=== PATIENT | male | born 1960 | race African-American/Black ===

== ENCOUNTER 2021-02-15 14:28 | Emergency (ER) | payer OTHER, SELFPAY ==
[2021-02-15 14:44] VITALS: BP 159/100; PULSE 101; RESP 12; TEMP 35.9; O2SAT 99
--- NOTE | 2021-02-15 15:08 | ED.DENTAL ---
HPI - Dental/Oral General Chief complaint: Dental/Oral Stated complaint: jaw swelling History of Present Illness HPI Narrative: This is a 60-year-old male that comes in with severe tooth pain. Patient states that his dentist is not able to get him in states is been going on for couple days he has not been able to eat or drink except for soup patient states that his jaws started to swell up on the left side. Patient states that the Tylenol is no longer working Related Data Home Medications Medication Instructions Recorded Confirmed dgootyjq-yzv-arrth acid 300 1 tablet PO DAILY 11/01/20 02/14/21 mcg-lycopene 600 mcg-lutein 300 mcg tablet Allergies Allergy/AdvReac Type Severity Reaction Status Date / Time No Known Allergies Allergy Verified 02/13/21 10:19 Review of Systems Review of Systems: Narrative: CONSTITUTIONAL: Denies fever, chills, or sweats. EYES: Denies visual changes, redness, or discharge. ENT: Denies rhinorrhea, congestion, sore throat, or otalgia. Tooth pain CARDIOVASCULAR:Denies chest pain, palpitations, or edema. RESPIRATORY: Denies cough or dyspnea. GASTROINTESTINAL: Denies abdominal pain, nausea, vomiting, or diarrhea. GENITOURINARY: Denies dysuria or hematuria. SKIN:[Denies rash or itching. MUSCULOSKELETAL:Denies back pain, joint pain, or myalgia. NEUROLOGIC: Denies headache, numbness, or weakness. PSYCHIATRIC:Denies anxiety or depression [facility] Past Medical History Medical History Bilateral chronic knee pain Dyslipidemia History of prostate cancer Recurrent genital herpes Surgical History Surgical History History of knee surgery History of prostatectomy 08/2012 History of tonsillectomy Family History Family History Mother Family history of Alzheimer's disease Father Family history of lung cancer Sibling Diabetes mellitus Social History Social History Years smoked: 18 Smoking status: Former smoker Second hand tobacco smoke exposure: No Smoking end date: 09/07/96 Alcohol intake: current Drinks per week: 4 Substance use type: does not use 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 Please see nursing chart for further information. There is no relevant family history pertinent to the presenting complaint. Exam Narrative: Exam Narrative: GENERAL:Well-appearing, well-nourished, and in no acute distress. HEAD:Normocephalic, atraumatic. EYES: PERRLA and EOMI. ENT: Nares clear, no rhinorrhea or epistaxis. Mucous membranes moist. Left jaw swollen painful to palpitation left lower gumline swollen many of dental caries NECK: Supple. CHEST: Clear to auscultation. No respiratory distress. HEART: Regular tachycardia rate and rhythm. . Normal peripheral pulses. ABDOMEN: Soft, nontender, nondistended, normal active bowel sounds. EXTREMITIES: Normal range of motion. No edema. SKIN: Warm, dry, no rash. NEURO: No focal deficits. Alert and oriented x3. Explained blood pressure the patient informed him of his high patient is aware states that is due to his pain level Course Vital Signs Vital signs: Vital Signs Temperature 96.7 F L 02/15/21 14:44 Pulse Rate 101 H 02/15/21 14:44 Respiratory Rate 12 02/15/21 14:44 Blood Pressure 159/100 H 02/15/21 14:44 Pulse Oximetry 99 02/15/21 14:44 Temperature 96.7 F L 02/15/21 14:44 Pulse Rate 101 H 02/15/21 14:44 Respiratory Rate 12 02/15/21 14:44 Blood Pressure 159/100 H 02/15/21 14:44 Pulse Oximetry 99 02/15/21 14:44 MDM - Dental/Oral Differential Diagnosis Differential diagnosis: Likely gingival abscess, dental car
== END 2021-02-15 15:18 | disposition home or self-care (01) ==
PROVIDERS: Emergency Provider Nurse Practitioner Family; PCP Family Medicine
DX: K08.89 Other specified disorders of teeth and supporting structures (principal); K02.9 Dental caries, unspecified; K04.7 Periapical abscess without sinus; E78.5 Hyperlipidemia, unspecified; Z85.46 Personal history of malignant neoplasm of prostate; Z90.79 Acquired absence of other genital organ(s); Z87.891 Personal history of nicotine dependence
CPT/HCPCS: 99213; G0463

== ENCOUNTER 2021-02-21 10:24 | Outpatient (CLI) | payer OTHER, SELFPAY ==
--- NOTE | ~2021-02-21 | US_ITS ---
EXAMINATION: US soft tissue chest DATE: 02/21/2021 11:00 INDICATION: Localized swelling, mass and lump at the superior anterior right trunk. TECHNIQUE: Multiple grayscale and Doppler ultrasound images of the region of concern at the medial ri ght clavicular region were obtained. COMPARISON: None FINDINGS: The palpable abnormality of concern appears to correspond to the right clavicle which is elevated rel ative to the left clavicle. There is asymmetric widening of the right sternoclavicular joint relative to the left with approximately 9 mm anterior subluxation of the medial head of the right clavicle re lative to the sternum. Hypoechoic synovitis is seen within the right sternoclavicular joint. No abnor mal masses identified. IMPRESSION: 1. Palpable abnormality of concern appears to correspond to the right clavicle which is elevated rela tive to the left with widening and step-off at the right acromion clavicular joint which could be rel ated to prior trauma or nonspecific arthritis. If clinically indicated this can be further evaluated with either CT or pre and postcontrast MRI. Reviewed, dictated and finalized at location A. IMPRESSION: 1. Palpable abnormality of concern appears to correspond to the right clavicle which is elevated relative to the left with widening and step-off at the right acromion clavicular joint which could be related to prior trauma or nonspecific arthritis. If clinically indicated this can be further evaluated with either C T or pre and postcontrast MRI.
== END 2021-02-21 10:25 | disposition home or self-care (01) ==
PROVIDERS: PCP Family Medicine; Visit Provider Surgery
DX: R22.2 Localized swelling, mass and lump, trunk (principal)
CPT/HCPCS: 76604

== ENCOUNTER 2021-12-18 08:07 | Outpatient (CLI) | payer OTHER, SELFPAY ==
--- NOTE | ~2021-12-18 | NM_ITS ---
EXAMINATION: NM bone scan whole body DATE: 12/18/2021 15:07 INDICATION: Prostate cancer. TECHNIQUE: 27.2 mCi Tc-99m HDP was administered intravenously. Delayed whole-body scintigrams were o btained. COMPARISON: CT abdomen and pelvis 06/18/2012, bone scan 06/18/2012 FINDINGS: There is joint-centered increased activity in the acromioclavicular joints, sternoclavicula r joints, spine, left hip, knees, and left ankle, likely osteoarthritis. IMPRESSION: 1. No evidence of metastatic disease. Reviewed, dictated and finalized at location A.
== END 2021-12-18 08:08 | disposition home or self-care (01) ==
PROVIDERS: PCP Family Medicine; Visit Provider Urology
DX: C61 Malignant neoplasm of prostate (principal)
CPT/HCPCS: 78306; A9561

== ENCOUNTER 2022-01-22 01:33 | Day surgery (SDC) | payer OTHER, SELFPAY ==
[2022-01-09 12:35] VITALS: BMI 37.6
--- NOTE | 2022-01-21 17:40 | PM.HPGS ---
History of Present Illness History of Present Illness Consent: Risks, benefits, and alternatives have been discussed and questions answered. Patient agrees to proceed with procedure. Chief complaint: neoplasm screening Narrative: Dave Ireland is a 61 year old male was referred for colon cancer screening. His last colonoscopy was 10 years ago. Review of Systems Review of Systems: All systems reviewed & are unremarkable except as noted in HPI and below PMFSH Past Medical History Medical History Bilateral chronic knee pain Dyslipidemia History of prostate cancer Recurrent genital herpes Seasonal allergies Surgical History Surgical History History of lateral meniscus repair of left knee (~2007) History of prostatectomy 08/2012 History of tonsillectomy (~2009) Family History Family History Mother Family history of Alzheimer's disease Father Family history of lung cancer Sibling Diabetes mellitus Social History Social History Years smoked: 18 Smoking status: Former smoker Tobacco type: cigarettes Second hand tobacco smoke exposure: No Alcohol intake: current Drinks per week: 5 Substance use type: does not use Living arrangements: other Additional living arrangements comments: With Additional occupation/education comments: [employer] Spiritual care concerns: No Meds Home Medications and Allergies Home Medications Medication Instructions Recorded Confirmed Type bcvqvolw-cft-bovjm acid 300 1 tablet PO DAILY 11/01/20 01/09/22 History mcg-lycopene 600 mcg-lutein 300 mcg tablet ibuprofen 600 mg PO QID PRN #30 tablet 02/15/21 01/09/22 Rx acyclovir 800 mg tablet 800 mg PO DAILY #90 tablet 10/11/21 01/09/22 Rx atorvastatin 10 mg tablet 10 mg PO QHS #90 tablet 12/30/21 01/09/22 Rx cholecalciferol (vitamin D3) 1,250 1,250 mcg PO WEEKLY #12 tablet 12/30/21 01/09/22 Rx mcg (50,000 unit) tablet Allergies Allergy/AdvReac Type Severity Reaction Status Date / Time No Known Allergies Allergy Verified 01/22/22 09:44 Exam Const: General: alert Orientation/consciousness: patient oriented x3 Resp: Auscultation: clear to auscultation bilaterally Cardio: Rhythm: regular rhythm GI: GI Palp: Yes Soft to palpation and No Tenderness to palpation present (GI) Neuro: General: patient oriented x3 Assessment and Plan Assessment and plan (1) Colon cancer screening: Code(s): Z12.11 - Encounter for screening for malignant neoplasm of colon Status: Acute Assessment and Plan: Colonoscopy with possible biopsy or polypectomy or cautery or injection of substances.
[2022-01-22 09:45] VITALS: BP 159/98; PULSE 88; RESP 20; TEMP 35.9; O2SAT 98; BMI 38.2
[2022-01-22] MEDS: LACTATED RINGERS 1,000 ML 150 ML IV CONT (09:53)
--- NOTE | 2022-01-22 10:34 | WPDANESEPPF ---
Anes - Initial Pre Proc Eval Procedure: Operation Date: 01/22/22 11:00 Proposed Procedures p Screening Colonoscopy - Sincere Casas MD Date/Time: 01/22/22 10:34 Surgeon: Sincere Casas MD Pre Op Diagnosis: neoplasm screening Patient Data Age: 61 Gender: M Height: 1.78 m Weight: 121.1 kg Last Vital Signs Temp 96.7 F L 01/22/22 09:45 Pulse 88 01/22/22 09:45 Resp 20 01/22/22 09:45 BP 159/98 H 01/22/22 09:45 Pulse Ox 98 01/22/22 09:45 Allergies Allergy/AdvReac Type Severity Reaction Status Date / Time No Known Allergies Allergy Verified 01/22/22 09:44 Home Medications Medication Instructions Recorded Confirmed Type nrmloywc-njw-snhvt acid 300 1 tablet PO DAILY 11/01/20 01/09/22 History mcg-lycopene 600 mcg-lutein 300 mcg tablet ibuprofen 600 mg PO QID PRN #30 tablet 02/15/21 01/09/22 Rx acyclovir 800 mg tablet 800 mg PO DAILY #90 tablet 10/11/21 01/09/22 Rx atorvastatin 10 mg tablet 10 mg PO QHS #90 tablet 12/30/21 01/09/22 Rx cholecalciferol (vitamin D3) 1,250 1,250 mcg PO WEEKLY #12 tablet 12/30/21 01/09/22 Rx mcg (50,000 unit) tablet Patient hx anesthesia problems: none Family hx anesthesia problems: none Results Review: All pre-operative results and documents have been reviewed as part of the pre-operative evaluation. [facility] Past Medical History Medical History Bilateral chronic knee pain Dyslipidemia History of prostate cancer Recurrent genital herpes Seasonal allergies Surgical History Surgical History History of lateral meniscus repair of left knee (~2007) History of prostatectomy 08/2012 History of tonsillectomy (~2009) Family History Family History Mother Family history of Alzheimer's disease Father Family history of lung cancer Sibling Diabetes mellitus Social History Social History Years smoked: 18 Smoking status: Former smoker Tobacco type: cigarettes Second hand tobacco smoke exposure: No Alcohol intake: current Drinks per week: 5 Substance use type: does not use Living arrangements: other Additional living arrangements comments: With 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 Informed Consent: The patient's anesthetic plan and its attendant risks and benefits were discussed with the patient/family/POA. Questions were solicited and answers provided to the satisfaction of the patient/family/POA.
[2022-01-22 11:23] VITALS: BP 118/84; PULSE 98; RESP 16; O2SAT 97
[2022-01-22 11:33] VITALS: BP 134/97; PULSE 75; RESP 18; O2SAT 100
--- NOTE | 2022-01-22 11:38 | SUR.PHASEII ---
MELINA Figueroa notified Dr. Cain of bundle branch block she noticed on the heart monitor. Dr. Cain to assess patient.
--- NOTE | 2022-01-22 11:41 | SUR.PHASEII ---
Dr. Cain discussed EKG with patient and gave the okay for the patient to be discharged. No further testing at this time.
[2022-01-22 11:43] VITALS: BP 133/97; PULSE 72; RESP 18; O2SAT 97
== END 2022-01-22 11:51 | disposition home health service (06) ==
PROVIDERS: PCP Family Medicine; Visit Provider Internal Medicine Gastroenterology
PROC: 0DJD8ZZ Inspection of Lower Intestinal Tract, Via Natural or Artificial Opening Endoscopic (ICD-10-PCS; CPT 45378; principal; 2022-01-22 11:00)
DX: Z12.11 Encounter for screening for malignant neoplasm of colon (principal); K57.30 Diverticulosis of large intestine without perforation or abscess without bleeding; D12.3 Benign neoplasm of transverse colon; E78.5 Hyperlipidemia, unspecified; B00.9 Herpesviral infection, unspecified; Z85.46 Personal history of malignant neoplasm of prostate; Z87.891 Personal history of nicotine dependence; E66.9 Obesity, unspecified; Z68.38 Body mass index [BMI] 38.0-38.9, adult
CPT/HCPCS: 45385; 88305; J2704; J7120

== ENCOUNTER 2022-03-06 08:00 | Outpatient (CLI) | payer OTHER, SELFPAY ==
--- NOTE | 2022-03-06 08:48 | ECG_ITS ---
Measurements Intervals [place] Rate: 57 P: 15 [place]: 206 QRS: 29 QRSD: 109 T: 9 QT: 433 QTc: 425 Interpretive Statements SINUS BRADYCARDIA INCOMPLETE RIGHT BUNDLE BRANCH BLOCK [90+ ms QRS DURATION, TERMINAL R IN V1/V2, 40+ ms S IN I/aVL/V4/V5/V6] NO PREVIOUS ECG AVAILABLE FOR COMPARISON Electronically Signed On 03-06-2022 18:00:07 CDT by Susy Rae M.D.
[2022-03-06 09:18] LABS: Basophils Absolute Auto 0.1 K/mm3 (0.0-0.1); Basophils Percent Auto 0.7 % (0.2-1.2); Eosinophils Absolute Auto 0.3 K/mm3 (0-0.3); Eosinophils Percent Auto 3.1 % (0-4.4); Hematocrit 43.3 % (42.0-52.0); Hemoglobin 14.2 g/dL (14.0-18.0); Immature Granulocyte Absolute 0.02 K/mm3 (0.00-0.031); Immature Granulocyte Percent A 0.2 % (0-0.5); Lymphocytes Absolute Auto 2.54 K/mm3 (0.9-3.2); Lymphocytes Percent Auto 28.1 % (18.3-44.2); Mean Corpuscular HGB Conc 32.8 g/dl (32-36); Mean Corpuscular Hemoglobin 29.5 pg (26-34); Mean Corpuscular Volume 89.8 fl (80-100); Mean Platelet Volume 9.4 fl (7.4-10.4); Monocytes Absolute Auto 0.8 K/mm3 (0.1-0.6); Monocytes Percent Auto 8.3 % (2.6-8.5); Neutrophils Absolute Auto 5.4 K/mm3 (1.3-6.7); Neutrophils Percent Auto 59.6 % (45.5-73.1); Platelet Count Result 342 k/mm3 (150-375); Red Blood Count 4.82 M/mm3 (4.6-6.20); White Blood Count 9.1 K/mm3 (4.5-10.0)
[2022-03-06 09:27] LABS: Albumin Level 4.1 g/dL (3.5-5.1); Anion Gap 7 mmol/L (8-16); Blood Urea Nitrogen 15 mg/dL (9-20); Calcium 8.7 mg/dL (8.4-10.2); Carbon Dioxide 26 mmol/L (22-30); Chloride 105 mmol/L (98-107); Estimated Glomerular Filt Rate > 60; Glucose 100 mg/dL (65-110); Potassium 3.9 mmol/L (3.4-5.0); Sodium 138 mmol/L (137-145)
[2022-03-06 10:51] LABS: Urine Cotinine NEGATIVE
[2022-03-06 11:48] LABS: Hemoglobin A1C 5.6 % (<5.7)
== END 2022-03-06 08:01 | disposition home or self-care (01) ==
LOC: ANHSURGERY 08:03
PROVIDERS: PCP Family Medicine; Visit Provider Orthopaedic Surgery
DX: G89.29 Other chronic pain (principal); M25.561 Pain in right knee; M25.562 Pain in left knee; Z01.818 Encounter for other preprocedural examination; I45.10 Unspecified right bundle-branch block; R00.1 Bradycardia, unspecified
CPT/HCPCS: 80048; 80307; 82040; 83036; 85025; 86850; 86900; 86901; 87070; 87147; 87181; 87186; 93005

== ENCOUNTER 2022-03-19 01:13 | Day surgery (SDC) | payer OTHER, SELFPAY ==
[2022-03-06 07:58] VITALS: BMI 38.5
--- NOTE | 2022-03-06 07:58 | PC.NURSE ---
Report to the Outpatient Waiting Room, entrance under the green pavilion located off [facility], at time _1000_ on date _03/19/22_. OR Time: _1200_. - You and your visitor will be asked a series of questions to screen for COVID 19 for your protection. - Only one visitor is allowed at this time. - The patient visitor is requested to leave or wait in car when not with patient. - A mask is required within the hospital. VISITING HOURS 10AM-8PM, USE MAIN HOSPITAL ENTRANCE (FRONT OF HOSPITAL) Patients may have clear liquids (water, carbonated beverages, clear teas, apple juice) until 3 hours prior to surgery (0900 AM) with a maximum of 20 ounces. - No food from midnight until time of surgery Take the following medications with a SIP of water the morning of surgery: _NONE_ Medications to discontinue per DR. KEM MALDONADO 7 DAYS PRIOR TO SURGERY, Date to take last dose 03/06/22_ Medications to discontinue per ANESTHESIA - MULTIVITAMIN 3 DAYS PRIOR TO SURGERY, Date to take last dose 03/15/22_ Please no deodorant, or body powder the day of surgery. No jewelry (including any body piercings) or valuables the day of surgery, leave them at home. Please take a shower or bath the night before, or the morning of, surgery with an antibacterial soap. Wear comfortable, loose fitting clothing. - Jewelry must be removed prior to entering the operating room. Rings and piercings that are not removed may be cut off. - The hospital will not accept responsibility for valuables. - Please leave all valuables, including medications, at home the day of surgery. If you are going home after surgery, a licensed full service vending driver must drive you home. - NO public transportation without another adult. - We recommend that an adult stay with you for 24 hours following discharge. - We also recommend that you do not drive, make important decision, drink alcoholic beverages, or take any drugs that were not prescribed by your health care provider for at least 24 hours after your discharge time. Follow any additional instructions given to you from your surgeon. If you or anyone in your household have experienced Covid symptoms in the past week, please notify your surgeon or the nurse liaison at the phone number below for possible testing. Instructions given to ___PT and asked if any additional questions and then verbalized understanding. Patient advised to call surgeon office or pre surgery nurse liaison [phone] if any additional questions.
[2022-03-06 08:19] VITALS: BP 134/84; PULSE 70; RESP 20; TEMP 36.4; O2SAT 99
--- NOTE | 2022-03-18 12:07 | WPDANESEPPF ---
Anes - Initial Pre Proc Eval Procedure: Operation Date: 03/19/22 12:00 Proposed Procedures p Right Total Knee Arthroplasty, Left Knee Cortisone Steroid Injection - Sawyer Guerrero MD Date/Time: 03/18/22 12:07 Surgeon: Sawyer Guerrero MD Pre Op Diagnosis: oa right knee Patient Data Age: 61 Gender: M Height: 1.78 m Weight: 121.8 kg Last Vital Signs Temp 36.4 C L 03/06/22 08:19 Pulse 70 03/06/22 08:19 Resp 20 03/06/22 08:19 BP 134/84 03/06/22 08:19 Pulse Ox 99 03/06/22 08:19 O2 Del Method Room Air 03/06/22 08:19 Allergies Allergy/AdvReac Type Severity Reaction Status Date / Time No Known Allergies Allergy Verified 03/19/22 10:31 Home Medications Medication Instructions Recorded Confirmed Type phbzlqej-bwd-tfjts acid 300 1 tablet PO QAM 11/01/20 03/19/22 History mcg-lycopene 600 mcg-lutein 300 mcg tablet (Centrum Silver Men) acyclovir 800 mg tablet 800 mg PO DAILY #90 tabs 10/11/21 03/19/22 Rx atorvastatin 10 mg tablet 10 mg PO QHS #90 tabs 12/30/21 03/19/22 Rx cholecalciferol (vitamin D3) 1,250 1,250 mcg PO WEEKLY #12 tabs 12/30/21 03/19/22 Rx mcg (50,000 unit) tablet naproxen sodium 220 mg tablet 440 mg PO DAILY PRN Pain 03/06/22 03/06/22 History (Socrates) Patient hx anesthesia problems: none Family hx anesthesia problems: none Results Review: All pre-operative results and documents have been reviewed as part of the pre-operative evaluation. [facility] Past Medical History Medical History Arthritis Bilateral chronic knee pain Dyslipidemia History of prostate cancer Hyperlipidemia Obesity Prostate CA Recurrent genital herpes Seasonal allergies Surgical History Surgical History History of lateral meniscus repair of left knee (~2007) History of prostatectomy 08/2012 History of tonsillectomy (~2009) Family History Family History Mother Family history of Alzheimer's disease Father Family history of lung cancer Sibling Diabetes mellitus Social History Social History Smoking packs per day: 0.75 Smoking cigarettes per day: 15.0 Years smoked: 18 Smoking pack-years: 13.50 Smoking status: Former smoker Tobacco type: cigarettes Second hand tobacco smoke exposure: No Smoking end date: 09/07/03 Additional smoking assessment comments: PT DENIES ALL FORMS OF TOBACCO USE Alcohol intake: current Drinks per week: 5 Substance use: never Substance use type: does not use Living arrangements: with family Additional living arrangements comments: With 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 Informed Consent: The patient's anesthetic plan and its attendant risks and benefits were discussed with the patient/family/POA. Questions were solicited and answers provided to the satisfaction of the patient/family/POA.
[2022-03-19] VITALS (13 sets, daily range): BP systolic 118–137; BP diastolic 62–94; PULSE 73–106; RESP 12–20; TEMP 36.4–36.9; O2SAT 94–100
--- NOTE | ~2022-03-19 | XR_ITS ---
EXAMINATION: XR knee RT 2V DATE: 03/19/2022 16:01 CDT INDICATION: Status post right knee arthroplasty TECHNIQUE: 2 views right knee FINDINGS: There is a right total knee arthroplasty in expected position. Subcutaneous gas with fluid and air in the joint are consistent with recent surgery. No evidence of periprosthetic fracture. IMPRESSION: 1. Recent right total knee arthroplasty. Reviewed, dictated and finalized at location A.
--- NOTE | 2022-03-19 09:34 | PM.IMHP ---
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 Patient has been having symptoms of pain in both of his knees for years. He has been treating this with cortisone injections as well as anti-inflammatory medications. Patient has severe medial compartment osteoarthritis in both knees. He feels that he is ready to proceed with total knee arthroplasty. Is having pain on a daily basis that is affecting his daily lifestyle. Review of Systems Review of Systems: All systems reviewed & are unremarkable except as noted in HPI and below PMFSH Past Medical History Medical History Arthritis Bilateral chronic knee pain Dyslipidemia History of prostate cancer Hyperlipidemia Obesity Prostate CA Recurrent genital herpes Seasonal allergies Surgical History Surgical History History of lateral meniscus repair of left knee (~2007) History of prostatectomy 08/2012 History of tonsillectomy (~2009) Family History Family History Mother Family history of Alzheimer's disease Father Family history of lung cancer Sibling Diabetes mellitus Social History Social History Smoking packs per day: 0.75 Smoking cigarettes per day: 15.0 Years smoked: 18 Smoking pack-years: 13.50 Smoking status: Former smoker Tobacco type: cigarettes Second hand tobacco smoke exposure: No Smoking end date: 09/07/03 Additional smoking assessment comments: PT DENIES ALL FORMS OF TOBACCO USE Alcohol intake: current Drinks per week: 5 Substance use: never Substance use type: does not use Living arrangements: with family Additional living arrangements comments: With 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 Spiritual care concerns: No Meds Home Medications and Allergies Home Medications Medication Instructions Recorded Confirmed Type zkcuyrwy-ggx-lwbns acid 300 1 tablet PO QAM 11/01/20 03/19/22 History mcg-lycopene 600 mcg-lutein 300 mcg tablet (Centrum Silver Men) acyclovir 800 mg tablet 800 mg PO DAILY #90 tabs 02/04/22 07/13/22 Rx atorvastatin 10 mg tablet 10 mg PO QHS #90 tabs 12/30/21 03/19/22 Rx cholecalciferol (vitamin D3) 1,250 1,250 mcg PO WEEKLY #12 tabs 12/30/21 03/19/22 Rx mcg (50,000 unit) tablet naproxen sodium 220 mg tablet 440 mg PO DAILY PRN Pain 03/06/22 03/06/22 History (Aleve) Allergies Allergy/AdvReac Type Severity Reaction Status Date / Time No Known Allergies Allergy Verified 03/19/22 10:31 Exam Narrative: 61-year-old male alert pleasant. He is 5 ft 10 and 265 lb. His BMI is 38. His right knee has range motion from 3-120 degrees. Trace effusion. Mild medial joint line tenderness. Normal stability. Hip range of motion is full without discomfort, negative Stinchfield maneuver. Normal quad strength. 2+ dorsalis pedis palpable. Skin is intact around the knee. There is no edema in lower extremity. Normal sensation to the lower extremity. Resp: Auscultation: clear to auscultation bilaterally Cardio: Rate: regular rate Rhythm: regular rhythm Assessment and Plan Assessment and plan (1) Arthritis: Code(s): M19.90 - Unspecified osteoarthritis, unspecified site Status: Acute Plan 61-year-old male who has severe medial compartment osteoarthritis in both knees with the right being more painful the left this point. He feels he is ready to proceed with surgery on his right knee. We also gave a cortisone injection left knee at the time surgery as well. Surgical procedure as well as risks and complications were discussed in
[2022-03-19] MEDS: LACTATED RINGERS 1,000 ML 30 ML IV CONT ×3 (11:07→16:16)
[2022-03-19] MEDS: ACETAMINOPHEN 500 MG TABLET 1000 MG PO ×3 (11:09→23:12)
[2022-03-19] MEDS: TRANEXAMIC ACID 1,000MG/ISO100 1,000 MG/100 ML BAG 200 MG IVPB (11:30)
--- NOTE | 2022-03-19 11:57 | WPDHPUPDATE1 ---
History and Physical Update Update Date/Time: 03/19/22 11:57 History and Physical has been reviewed, including an updated exam of the patient. There are NO changes in the patient's condition. Risks, benefits, and alternatives have been discussed and questions answered. Patient agrees to proceed with procedure.
[2022-03-19] MEDS: ceFAZolin 2 GM/D5W 50 ML 2 GM/50 ML BAG IVPB ×2 (12:08→22:16)
[2022-03-19] MEDS: ceFAZolin SODIUM 1 GM VIAL 3 GM (12:52)
[2022-03-19] MEDS: GENTAMICIN BONE CEMENT REFOBACIN 1 EACH TOPICAL (12:57)
[2022-03-19] MEDS: ceFAZolin SODIUM 1 GM VIAL 2 GM IV PUSH (14:29)
[2022-03-19] MEDS: TRANEXAMIC ACID 1,000 MG/10 ML AMPUL 1000 MG IV PUSH (14:29)
--- NOTE | 2022-03-19 15:25 | W.PM.PROC2 ---
Procedure Note - Detailed Date of Procedure 03/19/22 Pre-op Diagnosis Osteo arthritis of both knees Post-op Diagnosis Same Procedure Performed Cortisone injection left knee, right total knee arthroplasty Surgeon Sawyer Guerrero MD Inside Sales Advisor Immanuel ayala Anesthesia General Description of Procedure Patient was brought to the operating room and general anesthesia was administered. The left knee was prepped with ChloraPrep and 80 mg of Depo-Medrol and 3 cc of 1% lidocaine were injected lateral parapatellar approach without difficulty. The patient's right knee was prepped draped usual fashion. He did have a positive bounce with a small flexion contracture. He received 3 g of Ancef because of his weight of 120 kg BMI of 38. Weight based vancomycin was given 1 g TXA. There was extra difficulty with the procedure due to his obesity with BMI of 38 which added approximately 45 minutes to the procedure. The right limb was exsanguinated and tourniquet elevated to 300 mmHg. An 8 in longitudinal midline incision was used and a standard parapatellar arthrotomy utilized. Infrapatellar and suprapatellar fat pads were excised a quadriceps synovectomy carried out. The patella had rimming osteophytes but intact articular cartilage which looked normal. The osteophytes were gently debrided and a minimal lateral facetectomy was performed. A guide karely was inserted down the femoral canal after aspiration of canal contents and using the 5 degree valgus cutting bushing 9 mm of bone were removed the distal femur. Because of his large size and the wear medially this removed about 7 medially and appeared removed about 9 laterally. Next the tibial plateau was cut making a skim cut skiving off the low point of the posteromedial aspect of the medial tibial plateau where there was quite a bit of wear. This removed 10 mm laterally. The cut was made perpendicular to the axis of the tibia. This Koul remnants were excised and the PCL recessed. Flexion gap measured 10 mm medially 12 mm laterally. There was pronounced eburnation of the distal and posterior medial femoral condyle. The sizing guide was applied set at 3? of external rotation which matched Whitesides line posterior referencing pinholes were placed. The femur was cut to a size 70 and AP and chamfer cuts were made. Flexion gaps were symmetric with the 10 CR insert. Extension gap showed the medial side was still quite a bit tighter than the lateral side. He did have a varus deformity and varus contracture preoperatively. The tibia was sized to a 79 vanguard and this was placed at proper rotation referenced off the 2nd metatarsal medial 1/3 tibial tubercle in the anterior tibial plateau. This fit line to line anteromedial to posterior lateral in the proper rotation this was punched the 79. We removed posteromedial osteophytes at this time. We did not specifically release any of the posteromedial capsule or medial collateral ligament. The 10 mm insert was placed and we trialed. This was a little bit loose in flexion both on the mediolateral side. The knee came out to what appeared to be full extension but had a positive bounce. The tourniquet was released at 85 minutes and with this done he had a negative bounce test. The 12 was placed in flexion of was too tight. Planning for a size 11 insert, an additional mm of bone was removed the distal femur at this time chamfer cuts revisited and posterior femoral osteophyte was removed. This was still fairly sizable on the medial side. We did not need to perform a posterior capsular release. We trialed then with the 11 insert which had optimal stability opening up mm medially and laterally at 90? with appropriate minimal anterior posterior drawer and complete tightening up and full flexion. The knee came out to full extension with a negative bounce except there was no play medially on valgus stress either in extension or at 5? of flexion. We had about 2-[address]
[2022-03-19] MEDS: fentaNYL CITRATE INJ (*CRX) 100 MCG/2 ML VIAL 25 MCG IV PUSH ×7 (15:49→16:58)
[2022-03-19] MEDS: HYDROmorphone HCL INJ (*CRX) 1 MG/ML SYR 0.5 MG IV PUSH ×4 (16:13→16:33)
--- NOTE | 2022-03-19 17:30 | PC.NURSE ---
This patient, Dave Ireland, was admitted to Medical Room 245-. Patient/family oriented to hospital policies and general routines including ID bracelet, bed and alarms, visiting hours, pain management, procedures, bathroom and other care routines, personal items, smoking policy, room service/diet, and visiting hours. Information on how to activate the Rapid Response Team has been discussed. Patient/Family are encouraged to report perceived risks to care and to ask questions if they do not understand what they are told or what they should do.
[2022-03-19] MEDS: oxyCODONE HCL (*CRX) 5 MG TAB IR PO ×2 (17:53→22:23)
[2022-03-19] MEDS: SODIUM CHLORIDE 0.9% IV 1,000 ML 125 ML IV CONT (17:53)
[2022-03-19] MEDS: ONDANSETRON INJ 4 MG/2 ML VIAL IV PUSH ×2 (17:59→21:56)
[2022-03-19] MEDS: SENNA/DOCUSATE SODIUM TABLET 2 TAB PO (18:31)
[2022-03-19] MEDS: ATORVASTATIN 10 MG TABLET PO (22:22)
[2022-03-20] MEDS: oxyCODONE HCL (*CRX) 5 MG TAB IR PO ×5 (01:39→14:01)
[2022-03-20 04:18] VITALS: BP 108/61; PULSE 105; RESP 17; TEMP 36.3; O2SAT 96
[2022-03-20] MEDS: ACETAMINOPHEN 500 MG TABLET 1000 MG PO ×2 (05:56→10:50)
[2022-03-20] MEDS: ceFAZolin 2 GM/D5W 50 ML 2 GM/50 ML BAG IVPB ×2 (05:57→13:59)
[2022-03-20 06:41] LABS: Basophils Percent Auto 0.1 % (0.2-1.2); Hematocrit 37.8 % (42.0-52.0); Immature Granulocyte Percent A 0.5 % (0-0.5); Lymphocytes Absolute Auto 1.05 K/mm3 (0.9-3.2); Mean Corpuscular HGB Conc 31.7 g/dl (32-36); Mean Corpuscular Hemoglobin 29.5 pg (26-34); Mean Corpuscular Volume 92.9 fl (80-100); Mean Platelet Volume 9.4 fl (7.4-10.4); Monocytes Absolute Auto 1.8 K/mm3 (0.1-0.6); Monocytes Percent Auto 8.4 % (2.6-8.5); Neutrophils Absolute Auto 18.1 K/mm3 (1.3-6.7); Platelet Count Result 259 k/mm3 (150-375); Red Blood Count 4.07 M/mm3 (4.6-6.20); Red Cell Distribution Width 14.3 % (11.5-14.5)
[2022-03-20 07:02] LABS: Anion Gap 7 mmol/L (8-16); Blood Urea Nitrogen 17 mg/dL (9-20); Calcium 8.2 mg/dL (8.4-10.2); Carbon Dioxide 24 mmol/L (22-30); Chloride 101 mmol/L (98-107); Estimated CRCL calculation 75 ml/min; Estimated Glomerular Filt Rate > 60; Glucose 129 mg/dL (65-110); Potassium 4.3 mmol/L (3.4-5.0); Sodium 132 mmol/L (137-145)
--- NOTE | 2022-03-20 07:11 | PM.PNORT ---
Subjective Subjective Date/Time Seen: 03/20/22 07:11 postop day 1 patient is alert. He is afebrile vital signs are stable. His dressing is dry. He is able to straight leg raise. Neurovascularly he is intact. He has been up to the restroom multiple times overnight. He did have a bout of nausea when he 1st got out of bed yesterday after surgery. No episodes of vomiting. That is quickly passed it is completely gone at this point. Pain is well controlled. We will plan to have patient work with physical therapy today. If he continues to do well plan on discharging him home this afternoon. Objective Data Vital Signs Vital Signs: Vital Signs - 24 hr 03/19/22 10:30 03/19/22 15:39 03/19/22 15:55 Temperature 36.6 C 36.9 C Pulse Rate 73 106 H 97 Respiratory Rate 16 18 17 Blood Pressure 134/91 H 137/86 128/94 H Pulse Oximetry 99 97 100 Oxygen Delivery Room Air Simple Face Mask Simple Face Mask Oxygen Flow Rate 8 8 03/19/22 16:10 03/19/22 16:25 03/19/22 16:40 Temperature 36.7 C Pulse Rate 78 88 87 Respiratory Rate 12 19 12 Blood Pressure 134/83 126/72 133/77 Pulse Oximetry 94 98 96 Oxygen Delivery Nasal Cannula Nasal Cannula Nasal Cannula Oxygen Flow Rate 3 2 2 03/19/22 16:55 03/19/22 17:05 03/19/22 17:30 Temperature 36.4 C Pulse Rate 97 92 77 Respiratory Rate 20 14 14 Blood Pressure 118/74 134/86 125/76 Pulse Oximetry 100 100 96 Oxygen Delivery Nasal Cannula Nasal Cannula Oxygen Flow Rate 2 2 03/19/22 17:45 03/19/22 18:17 03/19/22 19:40 Temperature 36.4 C 36.4 C 36.5 C Pulse Rate 94 95 99 Respiratory Rate 14 16 18 Blood Pressure 135/76 127/90 122/85 Pulse Oximetry 98 96 97 Oxygen Delivery Oxygen Flow Rate 03/19/22 23:28 03/20/22 04:18 Temperature 36.6 C 36.3 C L Pulse Rate 87 105 H Respiratory Rate 18 17 Blood Pressure 129/62 108/61 Pulse Oximetry 98 96 Oxygen Delivery Oxygen Flow Rate Intake/Output Intake/Output: Intake & Output 03/17/22 03/18/22 03/19/22 07/14/22 23:59 23:59 23:59 23:59 Intake Total 2210 550 Output Total 400 800 Balance 1810 -250 Meds/Results Medications: Active Medications Generic Name Dose Route Start Last Admin Trade Name Freq PRN Reason Stop Dose Admin Acetaminophen 1,000 mg 03/19/22 17:00 03/20/22 05:56 Acetaminophen 500 Mg Tablet PO 1,000 mg Q6H SRAVANTHI Administration Acyclovir 800 mg 03/20/22 09:00 Acyclovir 400 Mg Tablet PO 04/19/22 08:59 DAILY SRAVANTHI Apixaban 2.5 mg 03/20/22 09:00 Apixaban 2.5 Mg Tablet PO Q12HR SRAVANTHI Atorvastatin Calcium 10 mg 03/19/22 21:00 03/19/22 22:22 Atorvastatin 10 Mg Tablet PO 10 mg QHS SRAVANTHI Administration Celecoxib 200 mg 03/20/22 08:00 Celecoxib 200 Mg Capsule PO DAILY@0800 SRAVANTHI Cephalexin HCl 500 mg 03/20/22 18:00 Cephalexin 500 Mg Capsule PO Q6HR SRAVANTHI Ergocalciferol 50,000 unit 03/24/22 09:00 Ergocalciferol 50,000 Unit Capsule PO Mo@0900 SRAVANTHI Cefazolin Sodium 2 gm in 50 mls @ 100 mls/hr 03/19/22 22:00 03/20/22 06:27 Ancef 2 Gm/D5w 50 Ml IVPB 03/20/22 14:29 Infused Q8H SRAVANTHI Infusion Vancomycin HCl 1,000 mg in 250 mls @ 250 mls/hr 03/19/22 22:00 03/19/22 23:23 Vancomycin 1,000 Mg/D5w 250 Ml IVPB 03/20/22 10:59 Infused Q12H SRAVANTHI Infusion Morphine Sulfate 2 mg 03/19/22 15:38 Morphine Sulfate (*Crx) 2 Mg/Ml Inj IV PUSH Q1H PRN Pain Rated 7-10 Naloxone HCl 0.1 mg 03/19/22 15:38 Naloxone Hcl 0.4 Mg/Ml Vial IV PUSH Q2M PRN Opiate Reversal Ondansetron HCl 4 mg 03/18/22 09:22 03/19/22 21:56 Ondansetron Inj 4 Mg/2 Ml Vial IV PUSH 4 mg ONCE PRN Administration Nausea Oxycodone HCl 5 mg 03/19/22 18:00 03/20/22 05:57 Oxycodone Hcl (*Crx) 5 Mg Tab Ir PO 5 mg Q4H SRAVANTHI Administration Oxycodone HCl 5 mg 03/19/22 15:38 Oxycodone Hcl (*Crx) 5 Mg Tab Ir PO Q4H PRN Pain Rated 4-10 Polyethylene Glycol 17 gm 03/20/22 09:00 Polyethylene
--- NOTE | 2022-03-20 07:15 | PM.DS ---
DS: Admitting Diagnosis Discharge Date 03/20 Admitting Diagnosis Right knee DJD DS: Discharge Diagnosis Discharge Diagnosis Plan 61-year-old male who underwent right total knee arthroplasty on 03/19 underwent procedure without complications. Postoperatively he has been afebrile vital signs are stable. Neurovascular is intact. He is on Eliquis for DVT prophylaxis. He was up to date of surgery walking in the room and to the restroom. He is comfortable. His pain overall is well controlled with scheduled Tylenol as well as oxycodone 5 mg. He is also on Celebrex 200 mg once a day. He is weight-bearing as tolerated. He is work with physical therapy on postop day 1 and if he continues do well to be discharged to home on 03/20. Patient was advised to keep leg elevated at home with his foot higher than his heart to prevent swelling in the knee. He is to do his exercises on an hourly basis at home for bending and straightening of the knee. His outpatient therapy starting next Thursday. He is also going home on a course of Keflex. Increased BMI. He will go home on Senokot and MiraLax for constipation. Patient was advise any questions or concerns he is to call the office otherwise we will see him at his appointment date. DS: Summary Hospital Course Hospital Course: Stable Time Spent with Patient Time attestation: Total time spent providing and/or coordinating discharge services: DS: Data Data Completed and Pending Labs on day of discharge: Labs from last 24 hours 03/20/22 03/20/22 05:44 05:44 WBC Pending RBC Pending Hgb Pending Hct Pending MCV Pending MCH Pending MCHC Pending RDW Pending Plt Count Pending MPV Pending Immature Gran % (Auto) Pending Neut % (Auto) Pending Lymph % (Auto) Pending [place] % (Auto) Pending Eos % (Auto) Pending Baso % (Auto) Pending Lymph # (Auto) Pending [place] # (Auto) Pending Eos # (Auto) Pending Baso # (Auto) Pending Abs Immat Gran (auto) Pending Absolute Neuts (auto) Pending Absolute Nucleated RBC Pending Nucleated RBC % Pending Sodium 132 L Potassium 4.3 Chloride 101 Carbon Dioxide 24 Anion Gap 7 L BUN 17 Creatinine 1.20 Estim Creat Clear Calc 75 Estimated GFR > 60 Glucose 129 H Calcium 8.2 L Discharge Plan Discharge Patient Disposition: Home, Self-Care Discharge Instructions: SAWYER GUERRERO M.D [facility], [place] [id number] [place] [address] POST-OPERATIVE DISCHARGE INSTRUCTIONS TOTAL KNEE ARTHROPLASTY 1. When resting, lie on back with leg elevated above heart to minimize swelling. Significant swelling could indicate a blood clot and if this occurs call the office (or go to the ER) to have a venous ultrasound. 2. Do exercise 5 times a day. 3. Do not sit with leg down except for meals. 4. Wound Care: Nursing will give additional dressings at discharge. Patient to change dressing at home 1 week from surgery, then maintain until seen in office. 5. May shower with dressing in place. . Stand Alone Forms: General Discharge Instructions Follow-up/Referrals: Sawyer Guerrero MD [Physician] - Keep Reg. Scheduled Appt. Discharge Medications: New acetaminophen 500 mg Tablet 1,000 mg PO Q6H Qty: 90 0RF Eliquis 2.5 mg Tablet 2.5 mg PO Q12HR Qty: 27 0RF celecoxib [Celebrex] 200 mg Capsule 200 mg PO DAILY@0800 Qty: 60 0RF polyethylene glycol 3350 [Miralax] 17 gram Powder In Packet 17 g PO QAM Qty: 30 0RF sennosides-docusate sodium [Senokot-S] 8.6-50 mg Tablet 2 tab PO BID Qty: 60 0RF cephalexin 500 mg Capsule 500 mg PO Q6HR Qty: 48 0RF oxycodone 5 mg Tablet 5 mg PO Q4H Qty: 40 0RF Continued Centrum Silver Men 300-600-300 mcg tablet 1 tablet PO QAM acyclovir 800 mg tablet 800 mg PO DAILY Qty: 90 1RF atorvastatin 10 mg tablet 10 mg PO QHS Qty: 90 1RF Label Co
[2022-03-20] MEDS: ACYCLOVIR 400 MG TABLET 800 MG PO (08:11)
[2022-03-20] MEDS: SENNA/DOCUSATE SODIUM TABLET 2 TAB PO (08:12)
[2022-03-20] MEDS: APIXABAN 2.5 MG TABLET PO (08:12)
[2022-03-20] MEDS: CELECOXIB 200 MG CAPSULE PO (08:13)
[2022-03-20 10:00] VITALS: BP 108/68; PULSE 95; RESP 16; TEMP 36.6; O2SAT 98
[2022-03-20 14:00] VITALS: BP 116/75; PULSE 98; RESP 16; TEMP 36.3; O2SAT 99
--- NOTE | 2022-03-20 14:19 | WPDANESPN ---
Anes - Prog Note Post-Op Date/Time: 03/20/22 14:19 Cardiovascular status: normal Respiratory status: normal Airway patency: baseline Mental status: baseline Post-Op hydration status: normal Vital Signs: Last Vital Signs Temp 36.6 C 03/20/22 10:00 Pulse 95 03/20/22 10:00 Resp 16 03/20/22 10:00 BP 108/68 03/20/22 10:00 Pulse Ox 98 03/20/22 10:00 O2 Del Method Room Air 03/20/22 08:16 O2 Flow Rate 2 03/19/22 17:05 Pain Score (VAS): 10/17 I/O: Intake & Output 03/19/22 03/20/22 03/20/22 23:59 07:59 15:59 Intake Total 1560 550 480 Output Total 400 800 Balance 1160 -250 480 Laboratory Tests 03/20/22 05:44 03/20/22 05:44 03/20/22 03/20/22 05:44 05:44 WBC 21.0 H RBC 4.07 L Hgb 12.0 L Hct 37.8 L MCV 92.9 MCH 29.5 MCHC 31.7 L RDW 14.3 Plt Count 259 MPV 9.4 Immature Gran % (Auto) 0.5 Neut % (Auto) 86.0 H Lymph % (Auto) 5.0 L [place] % (Auto) 8.4 Eos % (Auto) 0.0 Baso % (Auto) 0.1 L Lymph # (Auto) 1.05 [place] # (Auto) 1.8 H Eos # (Auto) 0.0 Baso # (Auto) 0.0 Abs Immat Gran (auto) 0.10 H Absolute Neuts (auto) 18.1 H Absolute Nucleated RBC 0.0 Nucleated RBC % 0.0 Sodium 132 L Potassium 4.3 Chloride 101 Carbon Dioxide 24 Anion Gap 7 L BUN 17 Creatinine 1.20 Estim Creat Clear Calc 75 Estimated GFR > 60 Glucose 129 H Calcium 8.2 L Post-procedural complaints: none Patient Feedback: Patient satisfied with anesthetic care.
== END 2022-03-20 16:27 | disposition home or self-care (01) ==
LOC: ANHSURGERY 10:11 → ANH2MED 17:23
PROVIDERS: PCP Family Medicine; Visit Provider Orthopaedic Surgery
PROC: (CPT 27447; principal; 2022-03-19 12:00)
DX: M17.0 Bilateral primary osteoarthritis of knee (principal); E78.5 Hyperlipidemia, unspecified; Z85.46 Personal history of malignant neoplasm of prostate; E66.9 Obesity, unspecified; Z68.37 Body mass index [BMI] 37.0-37.9, adult; Z90.79 Acquired absence of other genital organ(s); Z87.891 Personal history of nicotine dependence
CPT/HCPCS: 27447; 36415; 73560; 80048; 80307; 82040; 83036; 85025; 86850; 86900; 86901; 87070; 87147; 87181; 87186; 93005; 97110; 97116; 97161; 97165; A9270; C1713; C1776; J0171; J0690; J1040; J1100; J1170; J1885; J2250; J2270; J2405; J2704; J2795; J3010; J3370; J7030; J7120

== ENCOUNTER 2022-06-13 07:56 | Outpatient (CLI) | payer OTHER, SELFPAY ==
--- NOTE | ~2022-06-13 | CT_ITS ---
EXAMINATION: CT abdomen pelvis w con DATE: 06/13/2022 08:22 INDICATION: Prostate cancer. TECHNIQUE: Computed tomography (CT) of the abdomen and pelvis was performed with 100 mL Omnipaque 350 intravenous contrast. Automated exposure control and iterative reconstruction technique were employe d. The dose-length product was 1436.22 mGy-cm. COMPARISON: CT abdomen and pelvis 06/18/2012, bone scan 12/18/2021 FINDINGS: The visualized portions of the lung bases demonstrate mild atelectasis. No pleural effusion . The heart size is normal. No pericardial effusion. There is a 4 mm cyst in the liver. The spleen, p ancreas, gallbladder, and adrenal glands are normal. There are cysts in the kidneys measuring up to 1 6 mm on the left. There is an umbilical hernia containing fat. There is a left inguinal hernia contai aramis fat. There is diverticulosis of the colon without evidence of diverticulitis. There are no dilat ed loops of bowel. The appendix is normal. There is no free intraperitoneal fluid. There is an 18 x 2 7 mm right external iliac lymph node. There is an 11 x 19 mm left external iliac lymph node. There is a chronic 1.9 cm nonaggressive lytic lesion with sclerotic margin in right iliac wing, likely benign . There is severe lumbar spondylosis. IMPRESSION: 1. Enlarged bilateral external iliac lymph nodes suspicious for metastatic disease. Reviewed, dictated and finalized at location D. IMPRESSION: 1. Enlarged bilateral external iliac lymph nodes suspicious for metastatic dise ase.
[2022-06-13 08:16] LABS: Estimated Glomerular Filt Rate > 60
== END 2022-06-13 07:57 | disposition home or self-care (01) ==
PROVIDERS: PCP Family Medicine; Visit Provider Urology
DX: C61 Malignant neoplasm of prostate (principal); R59.0 Localized enlarged lymph nodes; K76.89 Other specified diseases of liver; K40.90 Unilateral inguinal hernia, without obstruction or gangrene, not specified as recurrent; K57.30 Diverticulosis of large intestine without perforation or abscess without bleeding
CPT/HCPCS: 74177; Q9967

== ENCOUNTER 2022-08-06 13:24 | Outpatient (CLI) | payer OTHER, SELFPAY ==
--- NOTE | ~2022-08-06 | PE_ITS ---
EXAMINATION: PET_PETPSMAST_PT DATE: 08/06/2022 16:15 INDICATION: Prostate cancer TECHNIQUE: 8.753 mCi of pipflufolastat F-18 (18-F-DCFPyL) was administered i.v. Low dose computed annabella ography (CT) images were acquired from the base of the brain to the proximal thighs for attenuation c orrection and anatomic localization. Positron emission tomography (PET) images were acquired in the s tobi distribution beginning 92 minutes after injection. COMPARISON: None FINDINGS: Head/neck: There is a typical pattern of symmetric physiologic increased activity in the parotid and submandibular glands and in the mucosa of the oropharynx and nasopharynx. No pathologically enlarged cervical lymphadenopathy or suspicious foci of increased uptake are identified. Chest: No abnormal PSMA uptake is identified. There is mild atelectasis. The lungs are free of focal airspace opacities. No pleural effusion or pneumothorax. The heart size is normal. There is 12 mm pre vascular lymph node in the upper mediastinum without associated PSMA PET uptake. Abdomen/pelvis/proximal thighs: There is physiologic PSMA uptake in the kidneys, liver, spleen and adriana wel. Previously described left external iliac chain lymphadenopathy is slightly improved and without abnormal PSMA uptake. There is a 3.3 x 1.5 cm right external iliac chain lymph node with abnormal PSM A uptake. There are subcentimeter bilateral inguinal lymph nodes with low level PSMA uptake . The lacey er, spleen, pancreas, gallbladder, and adrenal glands are normal. There are cysts of the kidneys. The re is no free intraperitoneal gas or evidence of bowel obstruction. Musculoskeletal: No abnormal PSMA uptake is identified. The chronic, nonaggressive lytic lesion with sclerotic margin in the right iliac wing does not demonstrate PSMA uptake, consistent with a benign f inding. IMPRESSION: 1. Right external iliac chain lymphadenopathy, consistent with metastatic disease. 2. Minimal uptake in nonpathologically enlarged bilateral inguinal lymph nodes could also reflect met astatic disease. Reviewed, dictated and finalized at location A. HYSICAL [employer]Y CHIEF IMPRESSION: 1. Right external iliac chain lymphadenopathy, consistent with metastatic disea se. 2. Minimal uptake in nonpathologically enlarged bilateral inguinal lymph nodes could also reflect metastatic disease.
== END 2022-08-06 13:25 | disposition home or self-care (01) ==
LOC: ANHIMG 13:27
PROVIDERS: PCP Family Medicine; Visit Provider Urology
DX: C61 Malignant neoplasm of prostate (principal)
CPT/HCPCS: 78815; A9595

== ENCOUNTER 2022-09-23 08:45 | Outpatient (CLI) | payer OTHER, SELFPAY ==
--- NOTE | ~2022-09-23 | MR_ITS ---
EXAMINATION: MR pelvis wo/w con DATE: 09/23/2022 10:09 INDICATION: Gastric cancer TECHNIQUE: Magnetic resonance imaging (MRI) of the pelvis was performed without and with 20 mL Multih ance intravenous contrast. Fullfield sequences of the pelvis included axial and coronal T2-weighted S S FSE, axial, sagittal and coronal 2D FIESTA, axial 2D FIESTA FS, axial SSFSE-IR CHAPARRO, axial dual-echo T1-weighted FSPGR, axial and coronal T1 weighted LAVA, 3D axial T2 Cube, axial diffusion-weighted SE with apparent diffusion coefficient (ADC) maps. Postcontrast sequences included a time course axial T1-weighted LAVA and sagittal and coronal T1-weighted LAVA. COMPARISON: PSMA PET/CT dated 08/06/[address] abdomen and pelvis dated 06/23/2022 FINDINGS: Mild diverticulosis along the sigmoid colon without adjacent inflammatory stranding to suggest divert iculitis. Normal appendix. Postoperative change of prior resection of the prostate and seminal vesicl es. There is mild truncation of the bladder wall which may relate to prior chronic outlet obstruction . The bladder extends caudally to the prostatectomy defect and there is linear scarring in the region of the seminal vesicles. No evident nodular soft tissue deposits to suggest local recurrence. Small fat-containing left inguinal hernia. Again seen is an enlarged right external and previously PSMA ewa d lymph node which currently measures 3.6 x 1.1 x 1.7 cm without significant interval change since ea rlier CT dated 06/13/2020 at which time the corresponding measurements were 3.5 x 1.2 x 1.8 cm. No int erval change in a few normal-sized bilateral inguinal lymph nodes. No other pathologically enlarged p elvic lymphadenopathy. Mild lower lumbar spondylosis with fibrofatty degenerative endplate changes at L4-L5. No evident pathologic marrow replacing process or abnormally enhancing bone lesions.. IMPRESSION: 1. Status post prostatectomy with no evident local recurrence. 2. Unchanged asymmetric mildly enlarged right external chain lymph node currently measuring 3.6 x 1.1 x 1.7 cm which remains suspicious for metastatic disease. Reviewed, dictated and finalized at location A. [employer] IMPRESSION: 1. Status post prostatectomy with no evident local recurrence. 2. Unchanged asymmetric mildly enlarged right external chain lymph node current ly measuring 3.6 x 1.1 x 1.7 cm which remains suspicious for metastatic disease .
== END 2022-09-23 08:46 | disposition home or self-care (01) ==
LOC: ANHIMG 08:50
PROVIDERS: PCP Family Medicine; Visit Provider Radiology Radiation Oncology
DX: C61 Malignant neoplasm of prostate (principal); R59.0 Localized enlarged lymph nodes
CPT/HCPCS: 72197; A9577

== ENCOUNTER 2023-03-02 10:30 | Emergency (ER) | payer OTHER, SELFPAY ==
--- NOTE | ~2023-03-02 | XR_ITS ---
Clinical Indication: Shortness of breath PA and lateral views of the chest: Comparison: 08/17/2012 Findings: Hazy left lower lobe airspace disease consistent with left upper lobe pneumonia. Right lung clear. Cardiomediastinal silhouette is within normal limits. Bones and soft tissues are unremarkabl e. Impression: Left upper lobe pneumonia. Reviewed, dictated and finalized at location . Impression: Left upper lobe pneumonia.
[2023-03-02 10:35] VITALS: BP 132/86; PULSE 93; RESP 22; TEMP 36.4; O2SAT 96
[2023-03-02] MEDS: IPRATROPIUM BR 0.02% INH SOLN 0.5 MG/2.5 ML VIAL INHALATION (10:45)
[2023-03-02] MEDS: ALBUTEROL SULFATE NEB 2.5 MG/3 ML INH INHALATION (10:45)
--- NOTE | 2023-03-02 10:45 | ED.SOB ---
HPI - SOB/Dyspnea General Chief Complaint: Shortness of Breath/Dyspnea Stated Complaint: wheezing/congestion Source: patient and RN notes reviewed History of Present Illness HPI Narrative: 62 yo M presents to urgent care with complaints of congestion, cough, and chest heaviness. Pt states he has been battling this for the last few months intermittently. Pt states he has seen his PCP twice for this and was initially put on a z-pack and steroids with minimal relief. Pt states he was then placed on another dose of steroids and inhalers at the end of December with minimal relief. Pt states it is back now worse. pt reports shortness of breath and wheezing. Pt denies any chest pain, fevers, chills, sore throat, ear pain, vomiting, or diarrhea. Related Data Allergies Allergy/AdvReac Type Severity Reaction Status Date / Time No Known Allergies Allergy Verified 03/02/23 11:33 Review of Systems Review of Systems: Pertinent positives and pertinent negatives per HPI. [facility] Past Medical History Medical History (Updated 03/02/23 @ 11:46 by Babita Villegas APRN) Arthritis Bilateral chronic knee pain Dyslipidemia History of prostate cancer Obesity Prostate CA Recurrent genital herpes Seasonal allergies Vitamin D deficiency Surgical History Surgical History (Updated 12/29/22 @ 14:18 by Beata Russell, DIRECTOR AMBULATORY) History of lateral meniscus repair of left knee (~2007) History of prostatectomy 08/2012 History of tonsillectomy (~2009) History of total right knee replacement (TKR) (~03/2022) Family History Family History Mother Family history of Alzheimer's disease Father Family history of lung cancer Sibling Diabetes mellitus Social History Social History (Updated 12/29/22 @ 13:56 by Gayle Pastor MA) Smoking packs per day: 0.75 Smoking cigarettes per day: 15.0 Years smoked: 18 Smoking pack-years: 13.50 Smoking status: Former smoker Second hand tobacco smoke exposure: No Additional smoking assessment comments: PT DENIES ALL FORMS OF TOBACCO USE Alcohol intake: current Drinks per week: 5 Substance use: never Substance use type: does not use Lack of Transportation: No Lack of Food: Never True Current Housing: I Have Housing Concerned About Future Housing: No Difficulty Paying Gas/Electric Bills: No Difficulty Paying for Meds: No Currently Unemployed: No Education: High School Diploma/GED Difficulty w/ Childcare or Family Care: No Living arrangements: with family Additional living arrangements comments: With Occupation/Education: 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 There is no relevant family history pertinent to the patient complaint. Exam Narrative: GENERAL: This is a well-nourished, well-developed patient, in no apparent distress. HEAD: normocephalic, atraumatic. EYES: Sclera clear/white. Vision is grossly intact. EARS: External ears normal, auditory canals clear and without drainage, TMs normal without perforation. Hearing grossly intact. NOSE: External nose normal with no obvious nasal discharge, nares without redness, no rhinorrhea. THROAT: Mucous membranes moist, posterior pharynx clear. NECK: Neck supple, non-tender without lymphadenopathy, masses or thyromegaly. CARDIOVASCULAR: Regular rate and rhythm without murmurs, gallops, or rubs. RESPIRATORY: wheezing and rhonchi throughout auscultation. SKIN: warm, intact with no suspicious lesions or rash, good texture and turgor. NEURO: awake, alert, and oriented to person, place and time. There were no obvious focal neurologic abnormalities. Course Course Level of Care: [facility] Care Visit V
[2023-03-02] MEDS: predniSONE 20 MG TABLET 60 MG PO (11:19)
[2023-03-02 11:40] VITALS: PULSE 98; RESP 20; O2SAT 96
== END 2023-03-02 11:51 | disposition home or self-care (01) ==
PROVIDERS: Emergency Provider Nurse Practitioner Family; PCP Family Medicine
DX: J18.1 Lobar pneumonia, unspecified organism (principal); Z87.891 Personal history of nicotine dependence; M19.90 Unspecified osteoarthritis, unspecified site; E78.5 Hyperlipidemia, unspecified; E55.9 Vitamin D deficiency, unspecified; Z85.46 Personal history of malignant neoplasm of prostate; Z96.651 Presence of right artificial knee joint; Z90.79 Acquired absence of other genital organ(s)
CPT/HCPCS: 71046; 94640; 99213; G0463; J7512

== ENCOUNTER → 2023-03-09 11:17 | Outpatient (CLI) | payer OTHER, SELFPAY ==
--- NOTE | ~2023-03-09 | XR_ITS ---
Clinical Indication: Pneumonia PA and lateral views of the chest: Comparison: 03/02/2023 Findings: The lungs are clear, without evidence of focal consolidation or pleural effusion. Cardiome diastinal silhouette is within normal limits. Bones and soft tissues are unremarkable. Impression: Normal chest. Reviewed, dictated and finalized at location . Impression: Normal chest.
== END ==
PROVIDERS: PCP Family Medicine; Visit Provider Nurse Practitioner Family
DX: J18.9 Pneumonia, unspecified organism (principal)
CPT/HCPCS: 71046

== ENCOUNTER 2023-04-09 14:28 | Outpatient (CLI) | payer OTHER, SELFPAY ==
--- NOTE | ~2023-04-09 | CT_ITS ---
EXAMINATION: CT diagnostic chest wo con DATE: 04/09/2023 14:48 INDICATION: Asthma, history of prostate cancer TECHNIQUE: Computed tomography (CT) of the chest was performed without intravenous contrast. The dose -length product (DLP) was 500.36 mGy-cm. Automated exposure control and iterative reconstruction tech BackTrack were employed. COMPARISON: 08/06/2022 FINDINGS: There is a 2.3 x 1.8 cm groundglass nodule of the left upper lobe which is new since the co mparison CT. No pleural effusion or pneumothorax. No pathologically enlarged thoracic lymph nodes are identified. The heart size is normal. Stones are present in the nondistended gallbladder. There is m ild thoracic spondylosis. IMPRESSION: 1. Groundglass nodule of the left upper lobe, new since the comparison CT, likely infection/inflammat ion given the relatively short interval between examinations. Reviewed, dictated and finalized at location F. IMPRESSION: 1. Groundglass nodule of the left upper lobe, new since the comparison CT, like ly infection/inflammation given the relatively short interval between examinati ons.
== END 2023-04-09 14:29 | disposition home or self-care (01) ==
PROVIDERS: PCP Family Medicine; Visit Provider Internal Medicine Pulmonary Disease
DX: R91.1 Solitary pulmonary nodule (principal); J45.909 Unspecified asthma, uncomplicated; Z85.46 Personal history of malignant neoplasm of prostate
CPT/HCPCS: 71250

== ENCOUNTER 2023-07-28 10:30 | Emergency (ER) | payer OTHER, SELFPAY ==
[2023-07-28 11:04] VITALS: BP 140/104; PULSE 93; RESP 16; TEMP 36.4; O2SAT 98
--- NOTE | 2023-07-28 11:55 | ED.WOUNDLAC ---
HPI - Wound/Laceration General Chief Complaint: Wound/Laceration Stated Complaint: Cut finger Time Seen by Provider: 07/28/23 11:56 Source: patient, RN notes reviewed and old records reviewed Mode of arrival: ambulatory Limitations: no limitations History of Present Illness HPI narrative: 62 year old male who presents to [facility] care with complaints of laceration to his right index finger at dorsal aspect of MIP joint which occurred while he was working on his brakes at home today.Patient has flap type of laceration with no active bleeding noted. Patient reports that his tetanus is not up to date. Onset (ago): hour(s) (within past hour prior to arrival) Location: other (right index finger) Place: home Patient tetanus UTD: No Treatments prior to arrival: bandage Related Data Home Medications Medication Instructions Recorded Confirmed acyclovir 800 mg tablet 800 mg PO DAILY 03/09/23 06/29/23 Allergies Allergy/AdvReac Type Severity Reaction Status Date / Time No Known Allergies Allergy Verified 06/29/23 09:37 Review of Systems Review of Systems: CONSTITUTIONAL: Denies fever, chills, or sweats. CARDIOVASCULAR: Denies chest pain, palpitations, or edema. RESPIRATORY: Denies cough or dyspnea. SKIN: Reports laceration to right index finger dorsal MIP joint area with no active bleeding, flap type of wound MUSCULOSKELETAL: Denies musculoskeletal pain NEUROLOGIC: Denies numbness, or weakness. All systems reviewed & are unremarkable except as noted in HPI and below PMFSH Past Medical History Medical History Arthritis Bilateral chronic knee pain Dyslipidemia History of prostate cancer Obesity Prostate CA Recurrent genital herpes Seasonal allergies Vitamin D deficiency Surgical History Surgical History History of lateral meniscus repair of left knee (~2007) History of prostatectomy 08/2012 History of tonsillectomy (~2009) History of total right knee replacement (TKR) (~03/2022) Family History Family History Mother Family history of Alzheimer's disease Father Family history of lung cancer Sibling Diabetes mellitus Social History Social History Social History: Caffeine- daily Smoking packs per day: 0.75 Smoking cigarettes per day: 15.0 Years smoked: 18 Smoking pack-years: 13.50 Smoking status: Former smoker Second hand tobacco smoke exposure: No Smoking end date: 09/07/04 Additional smoking assessment comments: PT DENIES ALL FORMS OF TOBACCO USE Alcohol intake: current Drinks per week: 2 Substance use: never Substance use type: does not use Lack of Transportation: No Lack of Food: Never True Current Housing: I Have Housing Concerned About Future Housing: No Difficulty Paying Gas/Electric Bills: No Difficulty Paying for Meds: No Currently Unemployed: No Education: High School Diploma/GED Difficulty w/ Childcare or Family Care: No Living arrangements: with family Additional living arrangements comments: With Occupation/Education: occupation 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 There is no relevant family history pertinent to the presenting complaint Exam Narrative: GENERAL: Well-appearing, well-nourished, and in no acute distress. HEAD: Normocephalic, atraumatic. NECK: Supple.no lymphadenopathy CHEST: Clear to auscultation. No respiratory distress.SAO2 99% on room air HEART: Regular rate and rhythm. No murmur heard. Normal peripheral pulses. EXTREMITIES: Normal range of motion. No edema. SKIN: Warm, dry, no r
[2023-07-28] MEDS: TETANUS,DIPHTHERIA,AC PERTUSSIS ADULT (0.5 ML) BOOSTRIX IM (12:13)
== END 2023-07-28 12:40 | disposition home or self-care (01) ==
PROVIDERS: Emergency Provider Registered Nurse; PCP Family Medicine
DX: S61.210A Laceration without foreign body of right index finger without damage to nail, initial encounter (principal); E78.5 Hyperlipidemia, unspecified; Z85.46 Personal history of malignant neoplasm of prostate; Z23 Encounter for immunization; Z87.891 Personal history of nicotine dependence; W45.8XXA Other foreign body or object entering through skin, initial encounter; Y92.009 Unspecified place in unspecified non-institutional (private) residence as the place of occurrence of the external cause
CPT/HCPCS: 12001; 90471; 90715; 99212; G0463

== ENCOUNTER 2023-08-27 09:09 | Outpatient (CLI) | payer OTHER, SELFPAY | END 2023-08-27 09:10 | disposition home or self-care (01) | LOC: ANHPFT 09:09 | PROVIDERS: PCP Family Medicine; Visit Provider Internal Medicine Pulmonary Disease | DX: J45.909 Unspecified asthma, uncomplicated (principal) | CPT/HCPCS: 94060; 94726; 94729 ==

== ENCOUNTER 2023-10-09 09:01 | Outpatient (CLI) | payer OTHER, SELFPAY ==
--- NOTE | ~2023-10-09 | CT_ITS ---
CT Scan of the Chest without Contrast: Clinical Indication: Solitary pulmonary nodule Technique: Contiguous sections were acquired throughout the chest without intravenous contrast. Dose reduction technique was used on this scan by utilizing automated exposure control and iterative recon struction technique. The dose-length product (DLP) was 427.65 mGy-cm. COMPARISON: 04/09/2023 Findings: There is no evidence of any significant mediastinal, hilar or axillary lymphadenopathy. The mediastin al soft tissues appear normal. There is no evidence of pleural or pericardial effusion. Stable subcentimeter chuy-fissural nodule in the left lung (axial image 60). Previously noted groundg lass opacity in the left upper lobe is resolved. Images through the upper abdomen reveal no abnormalities. Impression: Interval resolution of previously noted groundglass opacity in the left upper lobe. Stable subcentimeter chuy-fissural nodule the left lung. Reviewed, dictated and finalized at [facility]. 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 Stable subcentimeter chuy-fissural nodule the left lung.
== END 2023-10-09 09:02 | disposition home or self-care (01) ==
PROVIDERS: PCP Family Medicine; Visit Provider Internal Medicine Pulmonary Disease
DX: R91.1 Solitary pulmonary nodule (principal)
CPT/HCPCS: 71250

== ENCOUNTER 2024-02-02 13:55 | Outpatient (CLI) | payer OTHER, SELFPAY ==
--- NOTE | 2024-02-02 14:48 | ECG_ITS ---
SEE SCANNED COPY FOR CONFIRMED REPORT MTDD
[2024-02-02 15:22] LABS: Basophils Percent Auto 0.4 % (0.2-1.2); Eosinophils Absolute Auto 0.2 K/mm3 (0-0.3); Eosinophils Percent Auto 3.4 % (0-4.4); Immature Granulocyte Absolute 0.02 K/mm3 (0.00-0.031); Immature Granulocyte Percent A 0.3 % (0-0.5); Lymphocytes Absolute Auto 1.27 K/mm3 (0.9-3.2); Mean Corpuscular HGB Conc 32.5 g/dl (32-36); Mean Corpuscular Hemoglobin 29.2 pg (26-34); Mean Corpuscular Volume 89.9 fl (80-100); Mean Platelet Volume 8.9 fl (7.4-10.4); Monocytes Absolute Auto 0.7 K/mm3 (0.1-0.6); Monocytes Percent Auto 9.5 % (2.6-8.5); Neutrophils Absolute Auto 4.8 K/mm3 (1.3-6.7); Neutrophils Percent Auto 68.4 % (45.5-73.1); Platelet Count Result 293 k/mm3 (150-375); Red Blood Count 4.45 M/mm3 (4.6-6.20); Red Cell Distribution Width 14.7 % (11.5-14.5)
[2024-02-02 15:33] LABS: Albumin Level 4.3 g/dL (3.5-5.1); Anion Gap 6 mmol/L (4-12); Blood Urea Nitrogen 11 mg/dL (9-20); Calcium 9.4 mg/dL (8.4-10.2); Carbon Dioxide 30 mmol/L (22-30); Chloride 103 mmol/L (98-107); Estimated Glomerular Filt Rate > 60; Glucose 101 mg/dL (65-110); Potassium 3.8 mmol/L (3.4-5.0); Sodium 139 mmol/L (137-145)
[2024-02-02 15:52] LABS: Urine Cotinine NEGATIVE
[2024-02-02 17:44] LABS: Hemoglobin A1C 5.7 % (<5.7)
== END 2024-02-02 13:56 | disposition home or self-care (01) ==
LOC: ANHSURGERY 13:59
PROVIDERS: PCP Family Medicine; Visit Provider Orthopaedic Surgery
DX: Z01.818 Encounter for other preprocedural examination (principal); M17.12 Unilateral primary osteoarthritis, left knee
CPT/HCPCS: 80048; 80307; 82040; 83036; 85025; 87081; 87147; 87181; 93005

== ENCOUNTER 2024-02-23 00:33 | Day surgery (SDC) | payer OTHER, SELFPAY ==
[2024-02-02 14:04] VITALS: BMI 38.1
[2024-02-02 14:13] VITALS: BP 135/81; PULSE 61; RESP 16; TEMP 36.6; O2SAT 97
--- NOTE | 2024-02-02 14:23 | PC.NURSE ---
Addendum entered by Oly Martinez RN 02/02/24 14:36: SURGERY DATE IS 02/23/24--PATIENT AWARE, RELAYS UNDERSTANDING. Original Note: Report to the Outpatient Waiting Room, entrance under the green pavilion located off [facility], at time __6:00AM on date __02/02/24 . Planned Procedure Time: __7:30AM . Time changes happen often and if your time is changed the preop area will call you the afternoon before. - You and your visitor will be asked to self-screen and do not enter if you have any COVID symptoms. - A mask is optional within the hospital at this time. Patients may have clear liquids (water, carbonated beverages, clear teas, apple juice) until 3 hours prior to surgery with a maximum of 20 ounces. - No food from midnight until time of surgery. Take the following medications with a SIP of water the morning of surgery: ADVAIR INHALER. ALBUTEROL INHALER NEEDED. DO NOT STOP ANY OF YOUR OTHER PRESCRIPTION MEDICATIONS PRIOR TO SURGERY ?EXCEPT THE FOLLOWING Medications to discontinue per physician ____HOLD ALL VITAMINS/SUPPLEMENTS 3 DAYS PRE-OP PER ANESTHESIA Date to take last dose 02/19/24 Please no make-up, nail macedonian, hairspray, perfume, deodorant, or body powder the day of surgery. No jewelry (including any body piercings) or valuables the day of surgery, leave them at home. Please take a shower or bath the night before, or the morning of, surgery with an antibacterial soap. Wear comfortable, loose fitting clothing. - Jewelry must be removed prior to entering the operating room. Rings and piercings that are not removed may be cut off. - The hospital will not accept responsibility for valuables. - Please leave all valuables, including medications, at home the day of surgery. If you are going home after surgery, a licensed milk tanker driver must drive you home. - NO public transportation without another adult if you receive anesthesia. - We recommend that an adult stay with you for 24 hours following discharge. - We also recommend that you do not drive, make important decision, drink alcoholic beverages, or take any drugs that were not prescribed by your health care provider for at least 24 hours after your discharge time. Follow any additional instructions given to you from your surgeon. If you or anyone in your household have experienced Covid symptoms in the past week, please notify your surgeon or the nurse liaison at the phone number below for possible testing. Telephone instructions given to ____PATIENT and asked if any additional questions and then verbalized understanding. Patient advised to call surgeon office or pre surgery nurse liaison [phone] if any additional questions.
--- NOTE | 2024-02-22 11:17 | PM.IMHP ---
H&P: HPI History of Present Illness Date/Time: 02/22/24 11:17 Chief Complaint: Left knee DJD Narrative: 60-year-old male who presents today for left total knee arthroplasty. He underwent right total knee arthroplasty in 2022 and is happy with the results. He has severe medial compartment osteoarthritis in the left knee. He takes Celebrex 200 mg daily which is not improving his symptoms. He had cortisone injections in the past which did not give him improvement in his symptoms either. At this point patient feels he is ready to proceed with total knee arthroplasty about continued nonsurgical treatment Review of Systems Review of Systems: All systems reviewed & are unremarkable except as noted in HPI and below PMFSH Past Medical History Medical History Arthritis Bilateral chronic knee pain Dyslipidemia History of prostate cancer Obesity Prostate CA Recurrent genital herpes Seasonal allergies Vitamin D deficiency Surgical History Surgical History History of lateral meniscus repair of left knee (~2007) History of prostatectomy 08/2012 History of tonsillectomy (~2009) History of total right knee replacement (TKR) (~03/2022) Family History Family History Mother Family history of Alzheimer's disease Father Family history of lung cancer Sibling Diabetes mellitus Social History Social History Social History: Caffeine- daily Smoking packs per day: 0.5 Smoking cigarettes per day: 10.0 Years smoked: 19 Smoking pack-years: 9.50 Smoking status: Former smoker Tobacco type: cigarettes Second hand tobacco smoke exposure: No Smoking end date: 03/07/04 Additional smoking assessment comments: PT DENIES ALL FORMS OF TOBACCO USE Alcohol intake: current Drinks per week: 2 Substance use: never Substance use type: does not use Do You Feel Safe in your Home?: Yes Lack of Transportation: No Lack of Food: Never True Current Housing: I Have Housing Concerned About Future Housing: No Difficulty Paying Gas/Electric Bills: No Difficulty Paying for Meds: No Currently Unemployed: No Education: High School Diploma/GED Difficulty w/ Childcare or Family Care: No Living arrangements: with family Additional living arrangements comments: Occupation/Education: occupation 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 Gender identity (if verbalized by the patient): Male Spiritual care concerns: No Meds Home Medications and Allergies Home Medications Medication Instructions Recorded Confirmed Type albuterol sulfate 90 mcg/actuation 2 puff inhalation QID PRN 03/02/23 02/18/24 Rx aerosol inhaler shortness of breath or wheezing #8.5 grams cholecalciferol (vitamin D3) 50 50 mcg PO DAILY #90 tabs 12/14/23 02/18/24 Rx mcg (2,000 unit) tablet celecoxib 200 mg capsule (Celebrex) 200 mg PO DAILY #10 caps 01/15/24 02/18/24 Rx leuprolide acetate (6 month) 45 mg 45 mg subcut [id number] 01/15/24 02/18/24 History (6 month) subcutaneous syringe ([place]) oxybutynin chloride 5 mg tablet 5 mg PO DAILY 01/15/24 02/18/24 History atorvastatin 10 mg tablet 10 mg PO QHS #90 tabs 01/25/24 02/18/24 Rx acyclovir 800 mg tablet 800 mg PO DAILY #90 tabs 02/02/24 02/18/24 Rx calcium carbonate 1,000 mg PO DAILY 02/02/24 02/18/24 History fluticasone 100 mcg-salmeterol 50 1 inh inhalation Q12H PRN 02/02/24 02/18/24 History mcg/dose blistr powdr for Shortness Of Breath Or Wheezing inhalation (Advair Diskus) czybjytb-ckcp-uhqmh acid 400 1 tablet PO DAILY 02/02/24 02/18/24 History mcg-lycopene 600 mcg-ginkgo 120 mg tablet mupirocin 2 % topical ointment 1 applic topical BID #22 grams 02/11/24 02/18/24 Rx Allergies Allergy/AdvReac Typ
--- NOTE | 2024-02-22 14:47 | WPDANESEPP ---
Anes - Eval Pre Procedure Procedure: Operation Date: 02/23/24 07:30 Proposed Procedures p Left Total Knee Arthroplasty - Sawyer Guerrero MD Date/Time: 02/22/24 14:47 Pre Op Diagnosis: left knee oa Patient Data Age: 63 Gender: M Height: 1.78 m Weight: 120.5 kg Last Vital Signs Temp 97.8 F 02/02/24 14:13 Pulse 61 02/02/24 14:13 Resp 16 02/02/24 14:13 BP 135/81 02/02/24 14:13 Pulse Ox 97 02/02/24 14:13 O2 Del Method Room Air 02/02/24 14:13 Allergies Allergy/AdvReac Type Severity Reaction Status Date / Time No Known Allergies Allergy Verified 02/18/24 11:01 Home Medications Medication Instructions Recorded Confirmed Type albuterol sulfate 90 mcg/actuation 2 puff inhalation QID PRN 03/02/23 02/18/24 Rx aerosol inhaler shortness of breath or wheezing #8.5 grams cholecalciferol (vitamin D3) 50 50 mcg PO DAILY #90 tabs 12/14/23 02/18/24 Rx mcg (2,000 unit) tablet celecoxib 200 mg capsule (Celebrex) 200 mg PO DAILY #10 caps 01/15/24 02/18/24 Rx leuprolide acetate (6 month) 45 mg 45 mg subcut [id number] 01/15/24 02/18/24 History (6 month) subcutaneous syringe ([place]) oxybutynin chloride 5 mg tablet 5 mg PO DAILY 01/15/24 02/18/24 History atorvastatin 10 mg tablet 10 mg PO QHS #90 tabs 01/25/24 02/18/24 Rx acyclovir 800 mg tablet 800 mg PO DAILY #90 tabs 02/02/24 02/18/24 Rx calcium carbonate 1,000 mg PO DAILY 02/02/24 02/18/24 History fluticasone 100 mcg-salmeterol 50 1 inh inhalation Q12H PRN 02/02/24 02/18/24 History mcg/dose blistr powdr for Shortness Of Breath Or Wheezing inhalation (Advair Diskus) focltcei-vhsf-xndgl acid 400 1 tablet PO DAILY 02/02/24 02/18/24 History mcg-lycopene 600 mcg-ginkgo 120 mg tablet mupirocin 2 % topical ointment 1 applic topical BID #22 grams 02/11/24 02/18/24 Rx Patient hx anesthesia problems: none Family hx anesthesia problems: none Results Review: All pre-operative results and documents have been reviewed as part of the pre-operative evaluation. [facility] Past Medical History Medical History Arthritis Bilateral chronic knee pain Dyslipidemia History of prostate cancer Obesity Pneumonia Prostate CA Reactive airway disease Recurrent genital herpes Seasonal allergies Vitamin D deficiency Surgical History Surgical History History of lateral meniscus repair of left knee (~2007) History of prostatectomy 08/2012 History of tonsillectomy (~2009) History of total right knee replacement (TKR) (~03/2022) Family History Family History Mother Family history of Alzheimer's disease Father Family history of lung cancer Sibling Diabetes mellitus Social History Social History Social History: Caffeine- daily Smoking packs per day: 0.5 Smoking cigarettes per day: 10.0 Years smoked: 19 Smoking pack-years: 9.50 Smoking status: Former smoker Tobacco type: cigarettes Second hand tobacco smoke exposure: No Smoking end date: 03/07/04 Additional smoking assessment comments: PT DENIES ALL FORMS OF TOBACCO USE Alcohol intake: current Drinks per week: 2 Substance use: never Substance use type: does not use Do You Feel Safe in your Home?: Yes Lack of Transportation: No Lack of Food: Never True Current Housing: I Have Housing Concerned About Future Housing: No Difficulty Paying Gas/Electric Bills: No Difficulty Paying for Meds: No Currently Unemployed: No Education: High School Diploma/GED Difficulty w/ Childcare or Family Care: No Living arrangements: with family Additional living arrangements comments: Occupation/Education: occupation 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
[2024-02-23] VITALS (14 sets, daily range): BP systolic 116–147; BP diastolic 56–94; PULSE 69–94; RESP 12–25; TEMP 35.6–36.5; O2SAT 93–100; BMI 37.7
--- NOTE | ~2024-02-23 | XR_ITS ---
EXAMINATION: [id number] DATE: 02/23/2024 10:45 INDICATION: Postoperative evaluation following left total knee arthroplasty. TECHNIQUE: Anteroposterior and lateral views of the left knee were obtained. COMPARISON: None. FINDINGS: Left total knee arthroplasty without patellar resurfacing appears well seated and in near anatomic al ignment. No fractures identified. Expected postoperative subcutaneous and intra-articular gas. Stabl e pattern of calcification either calcific debris or more likely small loose osteochondral bodies pro jecting in soft tissues posterior to the knee likely in either a Dejesus's cyst or the popliteal recess . Nonaggressive appearing osseous excrescence of heterotopic ossification along the posterior cortex of the distal left femur likely sequela of old trauma. IMPRESSION: 1. Left total knee arthroplasty without patellar resurfacing, negative for postoperative purposes. Reviewed, dictated and finalized at location A. IMPRESSION: 1. Left total knee arthroplasty without patellar resurfacing, negative for post operative purposes.
--- NOTE | 2024-02-23 06:42 | WPDANESEPPF ---
Anes - Initial Pre Proc Eval Procedure: Operation Date: 02/23/24 07:30 Proposed Procedures p Left Total Knee Arthroplasty - Sawyer Guerrero MD Date/Time: 02/23/24 06:42 Surgeon: Sawyer Guerrero MD Pre Op Diagnosis: left knee oa Patient Data Age: 63 Gender: M Height: 1.78 m Weight: 119.3 kg Last Vital Signs Temp 36.6 C 02/02/24 14:13 Pulse 61 02/02/24 14:13 Resp 16 02/02/24 14:13 BP 135/81 02/02/24 14:13 Pulse Ox 97 02/02/24 14:13 O2 Del Method Room Air 02/02/24 14:13 Allergies Allergy/AdvReac Type Severity Reaction Status Date / Time No Known Allergies Allergy Verified 02/23/24 06:22 Home Medications Medication Instructions Recorded Confirmed Type albuterol sulfate 90 mcg/actuation 2 puff inhalation QID PRN 03/02/23 02/18/24 Rx aerosol inhaler shortness of breath or wheezing #8.5 grams cholecalciferol (vitamin D3) 50 50 mcg PO DAILY #90 tabs 12/14/23 02/18/24 Rx mcg (2,000 unit) tablet celecoxib 200 mg capsule (Celebrex) 200 mg PO DAILY #10 caps 01/15/24 02/18/24 Rx leuprolide acetate (6 month) 45 mg 45 mg subcut [id number] 01/15/24 02/18/24 History (6 month) subcutaneous syringe (EliBitXd) oxybutynin chloride 5 mg tablet 5 mg PO DAILY 01/15/24 02/18/24 History atorvastatin 10 mg tablet 10 mg PO QHS #90 tabs 01/25/24 02/18/24 Rx acyclovir 800 mg tablet 800 mg PO DAILY #90 tabs 02/02/24 02/18/24 Rx calcium carbonate 1,000 mg PO DAILY 02/02/24 02/18/24 History fluticasone 100 mcg-salmeterol 50 1 inh inhalation Q12H PRN 02/02/24 02/18/24 History mcg/dose blistr powdr for Shortness Of Breath Or Wheezing inhalation (Advair Diskus) yxgdrltl-uhhy-xtlfk acid 400 1 tablet PO DAILY 02/02/24 02/18/24 History mcg-lycopene 600 mcg-ginkgo 120 mg tablet mupirocin 2 % topical ointment 1 applic topical BID #22 grams 02/11/24 02/18/24 Rx Patient hx anesthesia problems: none Family hx anesthesia problems: none Results Review: All pre-operative results and documents have been reviewed as part of the pre-operative evaluation. [facility] Past Medical History Medical History Arthritis Bilateral chronic knee pain Dyslipidemia History of prostate cancer Obesity Pneumonia Prostate CA Reactive airway disease Recurrent genital herpes Seasonal allergies Vitamin D deficiency Surgical History Surgical History History of lateral meniscus repair of left knee (~2007) History of prostatectomy 08/2012 History of tonsillectomy (~2009) History of total right knee replacement (TKR) (~03/2022) Family History Family History Mother Family history of Alzheimer's disease Father Family history of lung cancer Sibling Diabetes mellitus Social History Social History Social History: Caffeine- daily Smoking packs per day: 0.5 Smoking cigarettes per day: 10.0 Years smoked: 19 Smoking pack-years: 9.50 Smoking status: Former smoker Tobacco type: cigarettes Second hand tobacco smoke exposure: No Smoking end date: 03/07/04 Additional smoking assessment comments: PT DENIES ALL FORMS OF TOBACCO USE Alcohol intake: current Drinks per week: 2 Substance use: never Substance use type: does not use Do You Feel Safe in your Home?: Yes Lack of Transportation: No Lack of Food: Never True Current Housing: I Have Housing Concerned About Future Housing: No Difficulty Paying Gas/Electric Bills: No Difficulty Paying for Meds: No Currently Unemployed: No Education: High School Diploma/GED Difficulty w/ Childcare or Family Care: No Living arrangements: with family Additional living arrangements comments: Occupation/Education: 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
[2024-02-23] MEDS: LACTATED RINGERS 1,000 ML 30 ML IV CONT ×3 (06:45→11:18)
[2024-02-23] MEDS: TRANEXAMIC ACID 1,000MG/ISO100 1,000 MG/100 ML BAG 200 MG IVPB (06:56)
[2024-02-23] MEDS: VANCOMYCIN 1,750 MG/NS 500 ML BAG 250 MG IVPB (06:59)
[2024-02-23] MEDS: ACETAMINOPHEN 500 MG TABLET 1000 MG PO (06:59)
--- NOTE | 2024-02-23 07:09 | WPDHPUPDATE1 ---
History and Physical Update Update Date/Time: 02/23/24 07:09 History and Physical has been reviewed, including an updated exam of the patient. There are NO changes in the patient's condition. Risks, benefits, and alternatives have been discussed and questions answered. Patient agrees to proceed with procedure.
[2024-02-23] MEDS: ceFAZolin 2 GM/D5W 50 ML 2 GM/50 ML BAG IVPB ×3 (07:32→23:16)
[2024-02-23] MEDS: SODIUM CHLORIDE 0.9% IV 37.7 ML, MORPHINE SULFATE INJ (*CRX) 2 MG, ROPivacaine HCL 1% 2... INFILTRATE (07:48)
[2024-02-23] MEDS: ceFAZolin SODIUM 1 GM VIAL 3 GM (07:48)
[2024-02-23] MEDS: ceFAZolin SODIUM 1 GM VIAL (08:15)
[2024-02-23] MEDS: TRANEXAMIC ACID 1,000 MG/10 ML AMPUL 1000 MG IV PUSH (09:46)
[2024-02-23] MEDS: ceFAZolin SODIUM 1 GM VIAL 2 GM IV PUSH (09:46)
[2024-02-23] MEDS: KETOROLAC 15 MG/ML VIAL (*BKC) IV PUSH ×3 (10:30→23:17)
--- NOTE | 2024-02-23 10:53 | W.PM.PROC2 ---
Procedure Note - Detailed Date of Procedure 02/23/24 Pre-op Diagnosis left knee oa, obesity, BMI 39 Post-op Diagnosis Same Procedure Performed Left total knee arthroplasty Surgeon Sawyer Guerrero MD Repairer And Checker Melvin Engle PA-C Anesthesia General Description of Procedure Patient was brought to the operating room and general anesthesia was administered. He received 3 g of Ancef weight based vancomycin 1 g of tranexamic acid preoperatively. The left knee was prepped draped in usual fashion. Under anesthesia is flexion was still limited to only about 100? we had full extension perhaps a few degrees of hyperextension with negative bounce. Mild medial pseudolaxity and fairly prominent lateral laxity was noted in extension. There is extra difficulty with the procedure due to his obesity with BMI of 39. This added approximately 20 minutes the procedure the Limb was exsanguinated and tourniquet elevated to 300 mmHg. A 7 in longitudinal midline incision was used in the standard parapatellar arthrotomy utilized. Infrapatellar and suprapatellar fat pads were excised a quadriceps synovectomy carried out. The patella had only mild chondromalacia. Osteophytes removed. Numerous large osteochondral loose bodies were present the suprapatellar approach and loose and these were carefully sought for and removed. Extra care was taken to make sure we did not leave any behind. A very conservative lateral facetectomy was performed. I felt the patella was most suitable for non resurfacing. A guide karley was inserted down the femoral canal after aspiration of canal contents using the 5 degree valgus cutting bushing 8 mm of bone removed the distal femur. This removed 8 off the lateral side due to the wear medially. We only took 8 mm because of his laxity in extension and slight hyperextension next the tibial plateau was cut. We removed about a mm off the lowest point of the medial tibial plateau and the cut was made perpendicular to the axis. Meniscal remnants were excised and the PCL was recessed. In flexion the medial side accepted a very tight 10 mm spacer and the lateral side at 90? accepted 13 mm. The sizing guide was applied to the distal femur set at 4? of external rotation which went matched Whitesides line and posterior referencing pinholes were placed. The size 70 vanguard AP cutting block was applied AP and chamfer cuts were made. Bone density was a little bit softer than average for a large 63-year-old male. Did not appear osteoporotic however. The size 70 trial fit nicely. The tibia was sized to a 79 and punched at proper rotation after confirming a perfectly flat tibial cut. We trialed and the 10 was too loose in flexion but the 11 was very appropriate at 90? to AP drawer opening 1 lateral and 2 medial and medial opening was closed down with arthrotomy the towel clipped. The knee came out to full extension with negative bounce but there was no play medially and 4 mm of lateral play in extension. Posteromedial tibial osteophyte was removed without releasing posteromedial capsule and mid medial osteophyte carefully smoothed again without releasing capsule. This gave us about a 0.5 mm of medial opening with the 11 insert in extension. I elected to fashion a 1 1/2 mm Alex of bone from the chamfer cut and placed this on the lateral femoral condyle and we trialed. This gave us 4? anatomic axis varus but on repeat trialing the knee laterally opened up 2-3 mm which had a much better stability feel. Lug holes were drilled the femoral component this time. The bony surfaces were drilled with the step drill thoroughly irrigated and dried. The Alex irrigated and dried. Using 2 packs of methylmethacrylate 1 the gentamicin powder, cement was immediately applied the tibial component and cement applied to the femoral component is Alex placed and cement applied over the Alex and cement applied the tibial plateau and tibial component fully seated. Cement applied to th
[2024-02-23] MEDS: fentaNYL CITRATE INJ (*CRX) 100 MCG/2 ML VIAL 25 MCG IV PUSH ×4 (11:00→11:18)
[2024-02-23] MEDS: HYDROmorphone HCL INJ (*CRX) 1 MG/ML SYR 0.25 MG IV PUSH ×5 (11:29→12:06)
--- NOTE | 2024-02-23 12:24 | ADMGEN ---
This patient, Dave Ireland, was admitted to 3 [facility] Surg Room 317-02. Patient/family oriented to hospital policies and general routines including ID bracelet, bed and alarms, visiting hours, pain management, procedures, bathroom and other care routines, personal items, smoking policy, room service/diet, and visiting hours. Information on how to activate the Rapid Response Team has been discussed. Patient/Family are encouraged to report perceived risks to care and to ask questions if they do not understand what they are told or what they should do.
[2024-02-23] MEDS: ONDANSETRON INJ 4 MG/2 ML VIAL IV PUSH (13:53)
[2024-02-23] MEDS: oxyCODONE HCL (*CRX) 5 MG TAB IR PO ×3 (14:18→20:20)
[2024-02-23] MEDS: ACETAMINOPHEN 325 MG TABLET 650 MG PO ×3 (14:18→20:19)
--- NOTE | 2024-02-23 14:50 | WPDCN ---
Assessment and Plan Assessment and plan (1) Primary osteoarthritis of left knee: Code(s): M17.12 - Unilateral primary osteoarthritis, left knee Status: Acute Assessment and Plan: Postoperative day 0 status post left total knee arthroplasty. Wound care, pain control, and DVT prophylaxis deferred to Dr. Guerrero. (2) Reactive airway disease: Qualifiers: Asthma complication type: uncomplicated Asthma persistence: intermittent Asthma severity: mild Qualified Code(s): J45.20 - Mild intermittent asthma, uncomplicated Code(s): J45.909 - Unspecified asthma, uncomplicated Status: Acute Assessment and Plan: No current issues. Continue scheduled maintenance inhalers and p.r.n. rescue inhaler. (3) Dyslipidemia: Code(s): E78.5 - Hyperlipidemia, unspecified Status: Chronic Assessment and Plan: Continue statin and check LFTs. (4) Prostate cancer: Code(s): C61 - Malignant neoplasm of prostate Status: Acute Assessment and Plan: On leuprolide injections q.6 months. Plan Thank you for allowing us to participate in this patient's care. Please do not hesitate to contact us with any questions. HPI Data of Consult Date/Time: 02/23/24 16:00 Requesting Physician: Sawyer Guerrero MD Consult Narrative Reason for consult: Medical management. Narrative: This is a 63-year-old male with osteoarthritis, dyslipidemia, and history of prostate cancer whom the hospitalist service has been consulted for help managing his medical conditions postoperatively. He presented today for elective left total knee arthroplasty due to ongoing pain despite conservative outpatient therapy. His surgery was performed under general anesthesia with no immediate complications documented an estimated blood loss of 250 mL. He had some nausea earlier on however that has since passed and he has eaten dinner without issue. Pain is well controlled. He has been up to the chair into the bathroom without issue. He denies paresthesias, skin color, and temperature changes distal to the surgical site. He also denies lightheadedness, dizziness, chest pain, pleuritic pain, and vomiting. Regarding his chronic medical conditions: He was diagnosed with prostate cancer in 2011 and is status post prostatectomy. He is on leuprolide injections q.6 months. He is on low-dose statin and has prescriptions for inhalers for reactive airway disease which had become a problem following COVID. No acute issues with this recently. No history of venous thromboembolism. Review of Systems Review of Systems: 12 systems were reviewed and are negative except for as per HPI. [facility] Past Medical History Medical History (Updated 02/23/24 @ 14:55 by Mariajose Nolasco PA-C) Arthritis Dyslipidemia Obesity Pneumonia Prostate cancer Reactive airway disease Seasonal allergies Vitamin D deficiency Surgical History Surgical History (Updated 02/23/24 @ 14:55 by Mariajose Nolasco PA-C) History of arthroplasty of left knee (02/23/24) History of arthroplasty of right knee (03/2022) History of lateral meniscus repair of left knee (2007) History of prostatectomy (08/2012) History of tonsillectomy (2009) Family History Family History Mother Family history of Alzheimer's disease Father Family history of lung cancer Sibling Diabetes mellitus Social History Social History (Updated 02/23/24 @ 14:56 by Mariajose Nolasco PA-C) Social History: Surrogate medical decision maker: Chantaljorge Ireland, spouse. Code status: Full code. Smoking packs per day: 0.5 Smoking cigarettes per day: 10.0 Years smoked: 19 Smoking pack-years: 9.50 Smoking status: Former smoker Tobacco type: cigarettes Second hand tobacco smoke exposure: No Smoking end date: 03/07/04 Alcohol intake: current Drinks per week: 2 Substance use: never Sub
[2024-02-23] MEDS: VANCOMYCIN 1,000 MG/NS 250 ML 1,000 MG/250 ML BAG 250 MG IVPB (18:56)
[2024-02-23] MEDS: ATORVASTATIN 10 MG TABLET PO (20:20)
[2024-02-23] MEDS: FAMOTIDINE 20 MG TABLET PO (20:20)
[2024-02-24] MEDS: oxyCODONE HCL (*CRX) 5 MG TAB IR PO ×4 (00:38→08:13)
[2024-02-24] MEDS: ACETAMINOPHEN 325 MG TABLET 650 MG PO ×3 (00:38→08:13)
[2024-02-24 01:54] VITALS: BP 133/72; PULSE 85; RESP 16; TEMP 36.3; O2SAT 100
[2024-02-24 05:54] VITALS: BP 150/71; PULSE 76; RESP 16; TEMP 36.4; O2SAT 99
[2024-02-24] MEDS: VANCOMYCIN 1,000 MG/NS 250 ML 1,000 MG/250 ML BAG 175 MG IVPB (06:02)
[2024-02-24 06:17] LABS: Basophils Percent Auto 0.3 % (0.2-1.2); Eosinophils Absolute Auto 0.1 K/mm3 (0-0.3); Eosinophils Percent Auto 0.6 % (0-4.4); Hematocrit 33.4 % (42.0-52.0); Hemoglobin 11.1 g/dL (14.0-18.0); Immature Granulocyte Absolute 0.04 K/mm3 (0.00-0.031); Immature Granulocyte Percent A 0.4 % (0-0.5); Lymphocytes Absolute Auto 1.64 K/mm3 (0.9-3.2); Lymphocytes Percent Auto 14.9 % (18.3-44.2); Mean Corpuscular HGB Conc 33.2 g/dl (32-36); Mean Corpuscular Hemoglobin 30.1 pg (26-34); Mean Corpuscular Volume 90.5 fl (80-100); Mean Platelet Volume 8.6 fl (7.4-10.4); Monocytes Absolute Auto 1.4 K/mm3 (0.1-0.6); Monocytes Percent Auto 12.9 % (2.6-8.5); Neutrophils Absolute Auto 7.8 K/mm3 (1.3-6.7); Neutrophils Percent Auto 70.9 % (45.5-73.1); Platelet Count Result 233 k/mm3 (150-375); Red Blood Count 3.69 M/mm3 (4.6-6.20); Red Cell Distribution Width 14.9 % (11.5-14.5)
[2024-02-24 06:31] LABS: Alanine Aminotransferase 19 U/L (6-50); Albumin Level 3.7 g/dL (3.5-5.1); Alkaline Phosphatase 81 U/L (38-126); Anion Gap 5 mmol/L (4-12); Aspartate Amino Transferase 24 U/L (17-59); Bilirubin,Total 0.5 mg/dL (0.2-1.3); Blood Urea Nitrogen 13 mg/dL (9-20); Calcium 8.8 mg/dL (8.4-10.2); Carbon Dioxide 28 mmol/L (22-30); Chloride 106 mmol/L (98-107); Estimated CRCL calculation 107 ml/min; Estimated Glomerular Filt Rate > 60; Glucose 100 mg/dL (65-110); Magnesium 2.2 mg/dL (1.6-2.3); Potassium 3.8 mmol/L (3.4-5.0); Sodium 139 mmol/L (137-145)
--- NOTE | 2024-02-24 07:11 | PM.PNORT ---
Subjective Subjective Date/Time Seen: 02/24/24 07:11 Interval history: Postop day 1 patient is alert. He is afebrile vital signs are stable. Dressing is dry and intact. Patient was up walking physical therapy yesterday and has been in to the restroom multiple times overnight. He had a little bit more pain with the soft tissue block wore off overnight but at this point pain is well controlled his pain medicine. He will be started on Celebrex this morning which will help with his pain control. Patient will work with Physical therapy this morning and will be discharged later this morning Objective Data Vital Signs Vital Signs: Vital Signs - 24 hr 02/23/24 10:44 02/23/24 10:59 02/23/24 11:14 Temperature 97.5 F L Pulse Rate 94 91 92 Respiratory Rate 16 20 25 H Blood Pressure 116/56 L 131/86 140/82 Pulse Oximetry 94 100 93 Oxygen Delivery Simple Face Mask Simple Face Mask Nasal Cannula Oxygen Flow Rate 10 10 4 02/23/24 11:29 02/23/24 11:44 02/23/24 11:59 Temperature Pulse Rate 90 85 86 Respiratory Rate 16 12 12 Blood Pressure 147/87 H 143/94 H 140/88 Pulse Oximetry 96 98 98 Oxygen Delivery Nasal Cannula Nasal Cannula Nasal Cannula Oxygen Flow Rate 4 4 4 02/23/24 12:25 02/23/24 12:35 02/23/24 13:24 Temperature 97.3 F L Pulse Rate 83 Respiratory Rate 17 16 Blood Pressure 140/80 Pulse Oximetry 98 99 Oxygen Delivery Nasal Cannula Room Air Oxygen Flow Rate 3 02/23/24 12:40 02/23/24 14:10 02/23/24 14:39 Temperature 96.0 F L 96.8 F L Pulse Rate 78 72 Respiratory Rate 16 Blood Pressure 134/79 139/73 Pulse Oximetry 98 98 Oxygen Delivery Room Air Oxygen Flow Rate 02/23/24 20:00 02/23/24 21:54 02/24/24 01:54 Temperature 96.9 F L 97.4 F L Pulse Rate 72 69 85 Respiratory Rate 16 16 16 Blood Pressure 128/84 133/72 Pulse Oximetry 98 98 100 Oxygen Delivery Room Air Oxygen Flow Rate 02/24/24 05:54 Temperature 97.6 F Pulse Rate 76 Respiratory Rate 16 Blood Pressure 150/71 H Pulse Oximetry 99 Oxygen Delivery Oxygen Flow Rate Intake/Output Intake/Output: Intake & Output 02/21/24 02/22/24 02/23/24 02/24/24 23:59 23:59 23:59 23:59 Intake Total 1380 425 Balance 1380 425 Meds/Results Medications: Active Medications Generic Name Dose Route Start Last Admin Trade Name Freq PRN Reason Stop Dose Admin Acetaminophen 650 mg 02/23/24 14:00 02/24/24 05:07 Acetaminophen 325 Mg Tablet PO 650 mg Q4HR SRAVANTHI Administration Acyclovir 800 mg 02/24/24 09:00 Acyclovir 400 Mg Tablet BY MOUTH DAILY SRAVANTHI Albuterol 2 puff 02/23/24 12:09 Albuterol Sulfate (*Sp) Aerosol 1 Puff INHALATION QID PRN shortness of breath or wheezing Apixaban 2.5 mg 02/24/24 09:00 Apixaban 2.5 Mg Tablet PO 03/06/24 21:01 Q12HR SRAVANTHI Atorvastatin Calcium 10 mg 02/23/24 21:00 02/23/24 20:20 Atorvastatin 10 Mg Tablet PO 10 mg QHS SRAVANTHI Administration Celecoxib 200 mg 02/24/24 08:00 Celecoxib 200 Mg Capsule PO DAILY@0800 SRAVANTHI Cephalexin HCl 500 mg 02/24/24 12:00 Cephalexin 500 Mg Capsule PO Q6HR SRAVANTHI Diphenhydramine HCl 25 mg 02/23/24 12:09 Diphenhydramine Hcl Inj 50 Mg/Ml Vial IV PUSH Q6H PRN Itching Famotidine 20 mg 02/23/24 21:00 02/23/24 20:20 Famotidine 20 Mg Tablet PO 20 mg Q12HR SRAVANTHI Administration Cefazolin Sodium 2 gm in 50 mls @ 100 mls/hr 02/23/24 16:00 02/23/24 23:46 Ancef 2 Gm/D5w 50 Ml IVPB 02/24/24 08:29 Infused Q8H SRAVANTHI Infusion Vancomycin HCl 1,000 mg in 250 mls @ 250 mls/hr 02/23/24 19:00 02/24/24 06:02 Vancomycin 1,000 Mg/Ns 250 Ml IVPB 02/24/24 07:59 175 mls/hr Q12H SRAVANTHI Administration Morphine Sulfate 2 mg 02/23/24 12:09 Morphine Sulfate (*Crx) 2 Mg/Ml Inj IV PUSH Q2H PRN Breakthrough Pain Rated 4-6 or NPO Naloxone HCl 0.1 mg 02/23/24 12:09 Naloxone Hcl 0.4 Mg/Ml Vial IV PUSH Q2M PRN Opiate Reversal Ondans
--- NOTE | 2024-02-24 07:32 | PM.DS ---
DS: Admitting Diagnosis Discharge Date 02/23 Admitting Diagnosis Left knee DJD DS: Discharge Diagnosis Discharge Diagnosis (1) Total knee replacement status: Code(s): Z96.659 - Presence of unspecified artificial knee joint Status: Acute DS: Summary Hospital Course Hospital Course: 63-year-old male who underwent left total knee arthroplasty on 02/22. Underwent the procedure without complications. Postoperatively he has been afebrile vital signs are stable. He is on Eliquis for 2 weeks for DVT prophylaxis followed by baby aspirin. His pain is well controlled with Tylenol every 4 hours as well as oxycodone 5 mg every 4 hours. He is also on Celebrex 200 mg daily. He is weight-bearing as tolerated. He was up walking with physical therapy the day of surgery. Postop day 1 he was alert and comfortable, pain is well controlled. He will be discharged home on 02/23. Patient will also go home with a 2 week course of Keflex due to history of positive nasal swab for ROD. He was going home with Senokot and MiraLax. Patient was advised to keep leg elevated home prevent swelling but do his exercises every hour. He has outpatient therapy starting on Thursday. He was advised any questions or concerns he is to call the office. Time Spent with Patient Time attestation: Total time spent providing and/or coordinating discharge services: DS: Data Data Completed and Pending Labs on day of discharge: Labs from last 24 hours 02/24/24 02/23/24 06:07 06:47 WBC 11.0 H RBC 3.69 L Hgb 11.1 L Hct 33.4 L MCV 90.5 MCH 30.1 MCHC 33.2 RDW 14.9 H Plt Count 233 MPV 8.6 Immature Gran % (Auto) 0.4 Neut % (Auto) 70.9 Lymph % (Auto) 14.9 L Mcintosh % (Auto) 12.9 H Eos % (Auto) 0.6 Baso % (Auto) 0.3 Lymph # (Auto) 1.64 Mcintosh # (Auto) 1.4 H Eos # (Auto) 0.1 Baso # (Auto) 0.0 Abs Immat Gran (auto) 0.04 H Absolute Neuts (auto) 7.8 H Absolute Nucleated RBC 0.000 Nucleated RBC % 0.0 Sodium 139 Potassium 3.8 Chloride 106 Carbon Dioxide 28 Anion Gap 5 BUN 13 Creatinine 0.80 Estim Creat Clear Calc 107 Estimated GFR > 60 Glucose 100 Calcium 8.8 Magnesium 2.2 Total Bilirubin 0.5 Direct Bilirubin 0.0 AST 24 ALT 19 Alkaline Phosphatase 81 Total Protein 7.0 Albumin 3.7 Blood Type O Positive Antibody Screen Negative Discharge Plan Discharge Patient Disposition: Home, Self-Care Discharge Instructions: RAUL BROWNLEE M.D [facility] [address] [address] [address] [place] [address] POST-OPERATIVE DISCHARGE INSTRUCTIONS TOTAL KNEE ARTHROPLASTY 1. When resting, do not rest in the chair.When resting, lie on your back, with back flat on the couch or bed, with leg elevated above heart to minimize swelling. You may put a pillow under your head. . Significant swelling could indicate a blood clot and if this occurs call the office (or go to the ER) to have a venous ultrasound. Therefore, do not rest in a chair. 2. At least five times a day spend several minutes stretching your knee into flexion while sitting in the chair and also stretching your knee out straight The abilities to bend your knee fully and straighten your knee fully are two most important knee functions to focus on during your recovery. 3. It is ok to sit in chair to eat, use the toilet and receive a guest and to do your stretching exercises, but, sitting in a chair will cause your leg to swell. Therefore, avoid additional time sitting in the chair. and don't rest in the chair. 4. Wound Care: Nursing will give you an additional Mepilex dressing at the time of discharge. Patient to remove the dressing and apply a new Mepilex dressing at home 7 days after surgery and leave the dressing on until seen in office. It is normal to see a small amount of blood on the silver pad of the Mepilex dressing. Its designed to hold small spots of blood. However,
[2024-02-24 08:00] VITALS: BP 135/82; PULSE 89; RESP 18; TEMP 35.9; O2SAT 98
--- NOTE | 2024-02-24 08:05 | PCPTNOTE ---
Attempted to see aptient for PT, however patient was eating breakfast.
[2024-02-24] MEDS: polyethylene glycoL 3350 17 GM POWD.PACK PO (08:13)
[2024-02-24] MEDS: CHOLECALCIFEROL 1,000 UNITS TABLET 2000 UNITS PO (08:13)
[2024-02-24] MEDS: ceFAZolin 2 GM/D5W 50 ML 2 GM/50 ML BAG IVPB (08:13)
[2024-02-24] MEDS: ACYCLOVIR 400 MG TABLET 800 MG BY MOUTH (08:13)
[2024-02-24] MEDS: CELECOXIB 200 MG CAPSULE PO (08:14)
[2024-02-24] MEDS: oxyBUTYnin CHLORIDE 5 MG TABLET PO (08:14)
[2024-02-24] MEDS: APIXABAN 2.5 MG TABLET PO (08:14)
[2024-02-24] MEDS: SENNA/DOCUSATE SODIUM TABLET 2 TAB PO (08:14)
[2024-02-24] MEDS: FAMOTIDINE 20 MG TABLET PO (08:14)
--- NOTE | 2024-02-24 10:45 | WPDANESPN ---
Anes - Prog Note Post-Op Date/Time: 02/24/24 10:45 Cardiovascular status: normal Respiratory status: normal Airway patency: baseline Mental status: baseline Post-Op hydration status: normal Vital Signs: Last Vital Signs Temp 35.9 C L 02/24/24 08:00 Pulse 89 02/24/24 08:00 Resp 18 02/24/24 08:00 BP 135/82 02/24/24 08:00 Pulse Ox 98 02/24/24 08:00 O2 Del Method Room Air 02/24/24 08:00 O2 Flow Rate 3 02/23/24 12:35 Pain Score (VAS): 11/14 I/O: Intake & Output 02/23/24 02/24/24 02/24/24 23:59 07:59 15:59 Intake Total 830 425 50 Balance 830 425 50 Laboratory Tests 02/24/24 06:07 02/24/24 06:07 02/24/24 06:07 WBC 11.0 H RBC 3.69 L Hgb 11.1 L Hct 33.4 L MCV 90.5 MCH 30.1 MCHC 33.2 RDW 14.9 H Plt Count 233 MPV 8.6 Immature Gran % (Auto) 0.4 Neut % (Auto) 70.9 Lymph % (Auto) 14.9 L Mccreary % (Auto) 12.9 H Eos % (Auto) 0.6 Baso % (Auto) 0.3 Lymph # (Auto) 1.64 Mccreary # (Auto) 1.4 H Eos # (Auto) 0.1 Baso # (Auto) 0.0 Abs Immat Gran (auto) 0.04 H Absolute Neuts (auto) 7.8 H Absolute Nucleated RBC 0.000 Nucleated RBC % 0.0 Sodium 139 Potassium 3.8 Chloride 106 Carbon Dioxide 28 Anion Gap 5 BUN 13 Creatinine 0.80 Estim Creat Clear Calc 107 Estimated GFR > 60 Glucose 100 Calcium 8.8 Magnesium 2.2 Total Bilirubin 0.5 Direct Bilirubin 0.0 AST 24 ALT 19 Alkaline Phosphatase 81 Total Protein 7.0 Albumin 3.7 Post-procedural complaints: none Patient Feedback: Patient satisfied with anesthetic care.
--- NOTE | 2024-02-24 10:56 | PM.IMPN ---
Progress Note: A&P Assessment and Plan (1) Primary osteoarthritis of left knee: Code(s): M17.12 - Unilateral primary osteoarthritis, left knee Status: Acute Assessment and Plan: Postoperative day 1 status post left total knee arthroplasty. Wound care, pain control, and DVT prophylaxis deferred to Dr. Guerrero. Doing well with PT and OT, they have cleared him for discharge. (2) Reactive airway disease: Qualifiers: Asthma complication type: uncomplicated Asthma persistence: intermittent Asthma severity: mild Qualified Code(s): J45.20 - Mild intermittent asthma, uncomplicated Code(s): J45.909 - Unspecified asthma, uncomplicated Status: Acute Assessment and Plan: No current issues. Continue scheduled maintenance inhalers and p.r.n. rescue inhaler. (3) Dyslipidemia: Code(s): E78.5 - Hyperlipidemia, unspecified Status: Chronic Assessment and Plan: Continue statin and check LFTs. (4) Prostate cancer: Code(s): C61 - Malignant neoplasm of prostate Status: Acute Assessment and Plan: On leuprolide injections q.6 months. Plan Thank you for allowing us to participate in this patient's care. Please do not hesitate to contact us with any questions. Subjective Date/time seen: 02/24/24 10:56 Interval history: patient doing well today. Cleared by hospitalist service for discharge. Exam Narrative: GENERAL: Comfortable, no acute distress HENMT: moist mucous membranes EYES: EOM intact b/l NECK: no lymphadenopathy RESPIRATORY: clear to auscultation, no increased respiratory effort CARDIO: Regular rate and rhythm GI: soft, nontender, bowel sounds present SKIN/EXTREMITIES: Mild edema to the left knee, Tegaderm dry and intact NEURO: PROM intact, answers questions appropriately, A&O x4 Objective Data Vital Signs Vital Signs: Vital Signs - 24 hr 02/23/24 10:59 02/23/24 11:14 02/23/24 11:29 Temperature Pulse Rate 91 92 90 Respiratory Rate 20 25 H 16 Blood Pressure 131/86 140/82 147/87 H Pulse Oximetry 100 93 96 Oxygen Delivery Simple Face Mask Nasal Cannula Nasal Cannula Oxygen Flow Rate 10 4 4 02/23/24 11:44 02/23/24 11:59 02/23/24 12:25 Temperature 97.3 F L Pulse Rate 85 86 83 Respiratory Rate 12 12 17 Blood Pressure 143/94 H 140/88 140/80 Pulse Oximetry 98 98 98 Oxygen Delivery Nasal Cannula Nasal Cannula Oxygen Flow Rate 4 4 02/23/24 12:35 02/23/24 13:24 02/23/24 12:40 Temperature 96.0 F L Pulse Rate 78 Respiratory Rate 16 16 Blood Pressure 134/79 Pulse Oximetry 99 98 Oxygen Delivery Nasal Cannula Room Air Oxygen Flow Rate 3 02/23/24 14:10 02/23/24 14:39 02/23/24 20:00 Temperature 96.8 F L Pulse Rate 72 72 Respiratory Rate 16 Blood Pressure 139/73 Pulse Oximetry 98 98 Oxygen Delivery Room Air Room Air Oxygen Flow Rate 02/23/24 21:54 02/24/24 01:54 02/24/24 05:54 Temperature 96.9 F L 97.4 F L 97.6 F Pulse Rate 69 85 76 Respiratory Rate 16 16 16 Blood Pressure 128/84 133/72 150/71 H Pulse Oximetry 98 100 99 Oxygen Delivery Oxygen Flow Rate 02/24/24 08:00 02/24/24 08:00 Temperature 96.7 F L Pulse Rate 89 Respiratory Rate 18 Blood Pressure 135/82 Pulse Oximetry 98 Oxygen Delivery Room Air Oxygen Flow Rate Intake/Output Intake/Output: Intake & Output 02/21/24 02/22/24 02/23/24 02/24/24 23:59 23:59 23:59 23:59 Intake Total 1380 475 Balance 1380 475 Meds/Results Medications: Active Medications Generic Name Dose Route Start Last Admin Trade Name Freq PRN Reason Stop Dose Admin Acetaminophen 650 mg 02/23/24 14:00 02/24/24 08:13 Acetaminophen 325 Mg Tablet PO 650 mg Q4HR SRAVANTHI Administration Acyclovir 800 mg 02/24/24 09:00 02/24/24 08:13 Acyclovir 400 Mg Tablet BY MOUTH 800 mg DAILY SRAVANTHI Administration Albuterol 2 puff 02/23/24 12:09 Albuterol Sulfate (*Sp) Aerosol 1 Puff
== END 2024-02-24 10:40 | disposition home or self-care (01) ==
LOC: ANHSURGERY 06:07 → ANH3MEDSUR 12:13
PROVIDERS: Physician Assistant; Physician Assistant Surgical; PCP Family Medicine; Visit Provider Orthopaedic Surgery
PROC: (CPT 27447; principal; 2024-02-23 07:30)
DX: M17.12 Unilateral primary osteoarthritis, left knee (principal); E78.5 Hyperlipidemia, unspecified; J45.20 Mild intermittent asthma, uncomplicated; E55.9 Vitamin D deficiency, unspecified; B00.9 Herpesviral infection, unspecified; Z87.891 Personal history of nicotine dependence; E66.9 Obesity, unspecified; Z68.41 Body mass index [BMI] 40.0-44.9, adult; Z79.51 Long term (current) use of inhaled steroids; Z79.818 Long term (current) use of other agents affecting estrogen receptors and estrogen levels; Z85.46 Personal history of malignant neoplasm of prostate
CPT/HCPCS: 27447; 36415; 73560; 80048; 80076; 80307; 82040; 83036; 83735; 85025; 86850; 86900; 86901; 87081; 87181; 93005; 97110; 97116; 97161; 97165; 97530; 97535; A9270; C1713; C1776; J0171; J0690; J1100; J1170; J1885; J2250; J2270; J2405; J2704; J2795; J3010; J3370; J7120

== ENCOUNTER 2024-04-04 14:35 | Outpatient (CLI) | payer OTHER, SELFPAY ==
--- NOTE | ~2024-04-04 | US_ITS ---
EXAMINATION: US venous doppler [facility] DATE: 04/04/2024 15:25 INDICATION: Lower limb swelling TECHNIQUE: Grayscale ultrasound images without and with compression and Doppler ultrasound images of the left lower extremity veins were obtained. COMPARISON: None. FINDINGS: The visualized portions of left common femoral vein, profunda (deep) femoral vein, femoral vein, popl iteal vein, posterior tibial veins and greater saphenous vein outflow are patent. IMPRESSION: 1. No deep venous thrombosis in the left lower limb. Reviewed, dictated and finalized at location A.
== END 2024-04-04 14:36 | disposition home or self-care (01) ==
LOC: ANHIMG 14:37
PROVIDERS: PCP Family Medicine; Visit Provider Orthopaedic Surgery
DX: R60.0 Localized edema (principal)
CPT/HCPCS: 93971

== ENCOUNTER 2024-05-02 12:30 | Outpatient (RCR) | payer OTHER, SELFPAY ==
--- NOTE | 2024-02-26 14:50 | OPREHPOC ---
Outpatient Therapy Plan of Care This is a Multidisciplinary Plan of Care that may contain components documented by all disciplines (PT, OT, and ST.) PT Problem 1 PT Problem #1 Knowledge Deficit PT Goal 1 Goal 1. Patient will perform independent HEP Target Visit 3 PT Problem 2 PT Problem #2 Pain PT Goal 1 Goal 1. Pain with ADL's no higher than 3/10 Target Visit 10 PT Problem 3 PT Problem #3 Impaired Range of Motion PT Goal 1 Goal 1. Improve left knee extension to 0 degrees for gait 2. Improve left knee flexion to 110 degrees for stair navigation PT Problem 4 PT Problem #4 Impaired Strength PT Goal 1 Goal 1. Improve left knee flexion and extension to 5/5 ian to return to work activities Target Visit 10 PT Problem 5 PT Problem #5 Impaired Functional ADLs PT Goal 1 Goal 1. Patient able to do normal cooking and cleaning tasks without limitation Target Visit 10
--- NOTE | 2024-02-26 14:51 | PTOPEVAL1 ---
Assessment and note entered by Rosalie Hernandez DPT Evaluation Information Assessment Status Evaluation Subjective Information Pt had L TKA on 02/23/24. Currently ambulating with a walker. Highest pain 8/10 and lowest 3/10. Pt has stairs at home but has not done them yet. Needs some help with donning socks and shoes. Has not tried to do any cooking or cleaning. Pt has not driven yet. 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 Prior to surgery: no walker use, independent and active at home and work. Patient goal: improve range of motion, good recovery Returns to [facility] on 03/14/24. Prior R TKA in March 28. Reported Pain Level Pain Score 5: Self Report Assessment PT Clinical Summary The patient is presenting to skilled therapy s/p L TKA on 02/23/24. He presents with decreased range of motion (+3 to 74 actively), decreased strength, edema, and gait impairments that are contributing to his current walker use and difficulty with normal ADL's including dressing independently. He will highly benefit from therapy to address his impairments in order to reduce pain and restore full function. He has been educated to continue HEP per MD guidelines. LEFS- 76.25% Plan of Care Interventions Electrical Stimulation,Gait Training,Hot Pack/Cold Pack,Manual Therapy,Neuro Re-education,Patient/ Caregiver Education,Therapeutic Activities, Therapeutic Exercise PT Services Indicated Yes Treatment Frequency and 2 times a week for 10 visits Duration These treatments will address the objective and functional deficits as defined above. The patient will be advanced safely and appropriately in order for the patient to progress towards his/her prior level of function. Additional exercises will be introduced and as well as a comprehensive home exercise program upon discharge, if needed, ?to ensure carryover of functional gains achieved in the clinic. This treatment plan has been reviewed and agreement upon by the patient.
--- NOTE | 2024-03-28 16:29 | OPREHPOC ---
Outpatient Therapy Plan of Care This is a Multidisciplinary Plan of Care that may contain components documented by all disciplines (PT, OT, and ST.) PT Problem 1 PT Problem #1 Knowledge Deficit PT Goal 1 Goal 1. Patient will perform independent HEP Target Visit 3 Progress Met PT Problem 2 PT Problem #2 Pain PT Goal 1 Goal 1. Pain with ADL's no higher than 3/10 Target Visit 20 Progress Partially Met PT Problem 3 PT Problem #3 Impaired Range of Motion PT Goal 1 Goal 1. Improve left knee extension to 0 degrees for gait 2. Improve left knee flexion to 110 degrees for stair navigation Target Visit 20 Progress Partially Met PT Problem 4 PT Problem #4 Impaired Strength PT Goal 1 Goal 1. Improve left knee flexion and extension to 5/5 ian to return to work activities Target Visit 20 Progress Partially Met PT Problem 5 PT Problem #5 Impaired Functional ADLs PT Goal 1 Goal 1. Patient able to do normal cooking and cleaning tasks without limitation Target Visit 20 Progress Partially Met
--- NOTE | 2024-03-28 16:29 | PTOPPROG ---
Assessment and note entered by Rosalie Hernandez DPT Evaluation Information Assessment Status Progress ICD-10 Condition Codes (PT) Pain in left knee M25.562,Weakness R53.1,Z47.1 Subjective Information Highest pain in last week 3-410 and lowest 0/10. Has progressed to using a cane. Has not yet returned to work. Has recently been able to do more at home including vacuuming and sweeping, some light cooking. Returns to MD again next Thursday. Assessment PT Clinical Summary The patient has made good progress in therapy overall. He demonstrates improved LE strength, walking speed, and stair navigation. He demonstrates improved knee range of motion (0-107 actively) and has progressed to a cane and is doing more cooking and cleaning at home. He will benefit from continued therapy to address range of motion and strength in order to return to full function including work. Plan of Care Interventions Electrical Stimulation,Gait Training,Manual Therapy,Neuro Re-education,Patient/Caregiver Education,Therapeutic Activities,Therapeutic Exercise PT Services Indicated Yes Treatment Frequency and 2 times a week for 10 visits Duration These treatments will address the objective and functional deficits as defined above. The patient will be advanced safely and appropriately in order for the patient to progress towards his/her prior level of function. Additional exercises will be introduced and as well as a comprehensive home exercise program upon discharge, if needed, ?to ensure carryover of functional gains achieved in the clinic. This treatment plan has been reviewed and agreement upon by the patient.
--- NOTE | 2024-04-27 09:56 | PCPTNOTE ---
Patient was canceled 04/21/24 due to therapist out with illness.
--- NOTE | 2024-05-02 13:07 | OPREHPOC ---
Outpatient Therapy Plan of Care This is a Multidisciplinary Plan of Care that may contain components documented by all disciplines (PT, OT, and ST.) PT Problem 1 PT Problem #1 Knowledge Deficit PT Goal 1 Goal / Goal Update 1. Patient will perform independent HEP Target Visit 3 Progress Met PT Problem 2 PT Problem #2 Pain PT Goal 1 Goal / Goal Update 1. Pain with ADL's no higher than 3/10 Target Visit 20 Progress Met PT Problem 3 PT Problem #3 Impaired Range of Motion PT Goal 1 Goal / Goal Update 1. Improve left knee extension to 0 degrees for gait 2. Improve left knee flexion to 110 degrees for stair navigation Target Visit 20 Progress Met PT Problem 4 PT Problem #4 Impaired Strength PT Goal 1 Goal / Goal Update 1. Improve left knee flexion and extension to 5/5 ian to return to work activities Target Visit 20 Progress Partially Met PT Problem 5 PT Problem #5 Impaired Functional ADLs PT Goal 1 Goal / Goal Update 1. Patient able to do normal cooking and cleaning tasks without limitation Target Visit 20 Progress Met
--- NOTE | 2024-05-02 13:07 | PTOPDC ---
Assessment and note entered by Rosalie Hernandez DPT Evaluation Information Assessment Status Discharge ICD-10 Condition Codes (PT) Pain in left knee M25.562,Weakness R53.1,Z47.1 Subjective Information Highest pain in last week 3/10 and lowest 0/10. Has not been using a cane for at least 2 weeks. Feels great going up and down stairs, has been able to do a lot more activities at home. Goes to MD later today and wants to be cleared to return to work. Reported Pain Level Pain Score 0: Self Report Assessment PT Clinical Summary The patient has made excellent progress in therapy . He reports decreased pain and improved function at home. He demonstrates range of motion equal to his R LE (0-110), improved strength, improved gait speed, and improved stair pattern. Due to his progress plan for discharge at this time. He has been educated to follow up with MD and/or PT as needed and to continue independent HEP. Plan of Care PT Services Indicated No
== END 2024-05-02 15:53 | disposition home or self-care (01) ==
LOC: ANHGOSHPT 12:30
PROVIDERS: PCP Family Medicine; Visit Provider Orthopaedic Surgery
DX: Z47.1 Aftercare following joint replacement surgery (principal); M17.12 Unilateral primary osteoarthritis, left knee; Z96.652 Presence of left artificial knee joint
CPT/HCPCS: 97016; 97110; 97112; 97140; 97161; 97530

== ENCOUNTER 2024-10-22 16:22 | Emergency (ER) | payer OTHER, SELFPAY ==
--- NOTE | 2024-10-22 16:27 | ED.WOUNDLAC ---
HPI - Wound/Laceration General Chief Complaint: Wound/Laceration Stated Complaint: FINGER LACERATION Time Seen by Provider: 10/22/24 16:34 Source: patient and RN notes reviewed Mode of arrival: ambulatory Limitations: no limitations History of Present Illness HPI narrative: 64-year-old male presents with concern for laceration to the 4th digit of his left hand. He reports he was cutting a dinner roll prior to arrival when he cut his finger. Related Data Home Medications ?Medication ?Instructions ?Recorded ?Confirmed ?Last Taken ?Type calcium carbonate 1,000 mg PO DAILY 02/02/24 07/04/24 Unknown History fluticasone 100 mcg-salmeterol 50 1 inh inhalation Q12H PRN 02/02/24 07/04/24 Unknown History mcg/dose blistr powdr for Shortness Of Breath Or Wheezing inhalation (Advair Diskus) vnrykedg-xgnb-iueqs acid 400 1 tablet PO DAILY 02/02/24 07/04/24 02/19/24 History mcg-lycopene 600 mcg-ginkgo 120 mg tablet acetaminophen 325 mg tablet 325 mg PO BID PRN 07/04/24 07/04/24 Unknown History oxybutynin chloride 5 mg 5 mg PO DAILY 07/04/24 07/04/24 Unknown History tablet,extended release 24 hr Allergies Allergy/AdvReac Type Severity Reaction Status Date / Time morphine Allergy Unknown itchng Verified 10/22/24 16:27 oxycodone Allergy Unknown Itching Verified 10/22/24 16:27 Review of Systems Review of Systems: CONSTITUTIONAL: Denies malaise, chills, sweats, or fever. SKIN: Reports laceration to the 4th digit of the left hand MUSCULOSKELETAL: Denies muscle skeletal pain NEUROLOGIC: Denies numbness, weakness All systems reviewed & are unremarkable except as noted in HPI and below PMFSH Past Medical History Medical History Abnormal prominence of clavicle Arthritis Dyslipidemia Obesity Overactive bladder Prostate cancer Reactive airway disease Seasonal allergies Vitamin D deficiency Surgical History Surgical History History of arthroplasty of left knee (02/23/24) History of arthroplasty of right knee (03/2022) History of lateral meniscus repair of left knee (2007) History of left knee replacement History of prostatectomy (08/2012) History of tonsillectomy (2009) Family History Family History Mother Family history of Alzheimer's disease Father Family history of lung cancer Sibling Diabetes mellitus Hypertension Social History Social History Social History: Surrogate medical decision maker: Chantal Ireland, spouse. Code status: Full code. Smoking packs per day: 0.5 Smoking cigarettes per day: 10.0 Years smoked: 19 Smoking pack-years: 9.50 Smoking status: Former smoker Tobacco type: cigarettes Second hand tobacco smoke exposure: No Smoking end date: 12/07/03 Alcohol intake: current Drinks per week: 2 Substance use: never Substance use type: does not use Do You Feel Safe in your Home?: Yes Lack of Transportation: No Lack of Food: Never True Current Housing: I Have Housing Concerned About Future Housing: No Difficulty Paying Gas/Electric Bills: No Difficulty Paying for Meds: No Currently Unemployed: No Education: Associate Degree Difficulty w/ Childcare or Family Care: No Living arrangements: with family Additional living arrangements comments: Lives with in [place]. 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 Gender identity (if verbalized by the patient): Male Spiritual care concerns: No Comments At time of signature, agree with nursing past medical, surgical, social and family history. There is no relevant family history pertinent to the presenting complaint Exam Narrative: GENERAL: Well-appearing, well-nourished, and in no acute distress. HEAD: Normocephalic EYES: PERRLA, conjunctivae clear NECK: Supple. CHEST: Speaks in full sentences. No respiratory distress. HEART: Regular rate and rhythm. Normal and equal peripheral pulses. EXTREMITIES: 4th digit of left hand has grossly normal strength and sensation. 5/5 strength with digit flexion, extension. Range of motion normal. No clubbing, cyanosis, or edema noted. No tenderness. Normal digital cascade with flexion of fingers, median, ulnar and radial nerve intact. Good capillary refill and radial pulse. Distal capillary refill less than 3 seconds. SKIN: Warn, dry, intact, pink. No rash NEURO: Alert and oriented x3. PSYCH: Normal mood and affect Course Course Emergency Course: Patient is aware of diagnosis, understands and agrees to treatment plan. Anticipatory guidance given. Patient agrees to follow-up as directed and is aware of reasons to seek care at the emergency department. Portions of this record may have been created with voice recognition software Level of Care: Express Care Visit Vital Signs Vital signs: Reviewed. Procedures Laceration Laceration 1: Date: 10/22/24 Time: 16:43 Site: hand Side (If applicable): left Size (cm): 1 Description: flap Depth: simple, single layer Local Anesthetic: lidocaine 1% Amount of anesthesia used (mL): 2 Pre-repair: wound explored ====== Skin Level ====== Skin layer closed with: nylon Size (cm): 5-0 Number of sutures: 4 Technique: simple, interrupted ====== Subcutaneous Layer ====== ====== Muscle Layer ====== ====== Tendon Layer ====== MDM - Wound/Laceration MDM Narrative Medical decision making narrative: Wound explored for foreign body and copious irrigation provided with no evidence of FB. Discussed the potential of retained foreign body with the patient and signs/symptoms that should prompt the patient to immediately go to the ED for reevaluation. There was no evidence of tendon or nerve lacerations. Anticipatory guidance was provided. Tetanus prophylaxis was not needed Differential Diagnosis Differential diagnosis: Likely laceration, abrasion and avulsion of skin Critical Care Time Critical Care Time Critical Care Time: No Discharge Plan Discharge Clinical Impression: Laceration Patient Disposition: Home, Self-Care Condition: Stable Instructions: Finger Laceration (ED) Additional Instructions: Keep wound clean, and dry. Apply antibiotic ointment twice daily. Cover with bandage as needed to prevent contamination. Clean with soap and water twice daily, but do not soak, take baths, or swim until wound is completely healed. Do not clean with hydrogen peroxide. If any signs of infection such as redness, swelling, increasing pain, drainage of purulent discharge, streaks up your extremity develop, seek medical attention immediately. Followup with your primary care provider in 10 days for suture removal. After sutures are removed, keep your scar out of the sun. You may use OTC silicone pad and/or scar massage with ointment (for 10-15 min a day) after one month. Talk to your doctor if you think you are developing a keloid. Patient Language: Irish Prescriptions: No Action albuterol sulfate 90 mcg/actuation HFA aerosol inhaler 2 puff inhalation QID PRN (Reason: shortness of breath or wheezing) Qty: 8.5 0RF oxybutynin chloride 5 mg tablet extended release 24hr 5 mg PO DAILY acetaminophen 325 mg tablet 325 mg PO BID PRN atorvastatin 10 mg tablet 10 mg PO QHS Qty: 90 3RF Patient Comments: pt stated a month acyclovir 800 mg tablet 800 mg PO DAILY Qty: 90 3RF calcium carbonate 500 mg calcium (1,250 mg) Tablet 1,000 mg PO DAILY fluticasone propion-salmeterol [Advair Diskus] 100-50 mcg/dose blister with device 1 inh inhalation Q12H PRN (Reason: Shortness Of Breath Or Wheezing) Rx Instructions: generic zj-zpez-lpbrl-lycopene-ginkgo 400-600-120 mcg-mcg-mg Tablet 1 tablet PO DAILY cholecalciferol (vitamin D3) 50 mcg (2,000 unit) tablet 50 mcg PO DAILY Qty: 90 1RF Follow-up/Referrals: Wade Hauser MD [Primary Care Provider] - Time of Disposition: 16:44
[2024-10-22 16:32] VITALS: BP 135/105; PULSE 99; RESP 16; TEMP 36.7; O2SAT 98
== END 2024-10-22 17:07 | disposition home or self-care (01) ==
PROVIDERS: Emergency Provider Nurse Practitioner; PCP Family Medicine
DX: S61.215A Laceration without foreign body of left ring finger without damage to nail, initial encounter (principal); E78.5 Hyperlipidemia, unspecified; Z87.891 Personal history of nicotine dependence; W26.0XXA Contact with knife, initial encounter
CPT/HCPCS: 12001; 99212; G0463; J2003

== ENCOUNTER 2025-01-11 11:56 | Emergency (ER) | payer OTHER, SELFPAY ==
[2025-01-11 12:11] VITALS: BP 135/85; PULSE 72; RESP 16; TEMP 36; O2SAT 99
--- NOTE | 2025-01-11 12:11 | ED_ITS ---
HPI - Extremity Injury (Lower) General Chief Complaint: Extremity Problem,Nontraumatic Stated Complaint: L LEG PAIN Source: patient Mode of arrival: ambulatory Limitations: no limitations History of Present Illness HPI Narrative: Patient is a 64-year-old male who presents to the clinic for left hip pain that radiates down to his left lower leg x 6 days. He states that he was mowing and noticed the pain afterwards. Denies any numbness or tingling. Related Data Home Medications ?Medication ?Instructions ?Recorded ?Confirmed ?Last Taken ?Type calcium carbonate 1,000 mg PO DAILY 02/02/24 07/04/24 Unknown History fluticasone 100 mcg-salmeterol 50 1 inh inhalation Q12H PRN 02/02/24 07/04/24 Unknown History mcg/dose blistr powdr for Shortness Of Breath Or Wheezing inhalation (Advair Diskus) wzfzxhmo-ujap-efshw acid 400 1 tablet PO DAILY 02/02/24 07/04/24 02/19/24 History mcg-lycopene 600 mcg-ginkgo 120 mg tablet acetaminophen 325 mg tablet 325 mg PO BID PRN 07/04/24 07/04/24 Unknown History oxybutynin chloride 5 mg 5 mg PO DAILY 07/04/24 07/04/24 Unknown History tablet,extended release 24 hr Allergies Allergy/AdvReac Type Severity Reaction Status Date / Time morphine Allergy Unknown itchng Verified 01/11/25 12:04 oxycodone Allergy Unknown Itching Verified 01/11/25 12:04 Review of Systems Review of Systems: CONSTITUTIONAL: Denies body aches, fever, chillsEYES: Denies visual changes ENT: Denies rhinorrhea, congestion CARDIOVASCULAR: Denies chest pain, palpitations, or edema. RESPIRATORY: Denies cough or dyspnea. SKIN: Denies rash, itching, or wounds. MUSCULOSKELETAL: reports left back pain that radiates to his left lower leg. NEUROLOGIC: Denies headache, numbness, tingling, or weakness. All systems reviewed & are unremarkable except as noted in HPI and below PMFSH Past Medical History Medical History Abnormal prominence of clavicle Arthritis Dyslipidemia Obesity Overactive bladder Prostate cancer Reactive airway disease Seasonal allergies Vitamin D deficiency Surgical History Surgical History History of arthroplasty of left knee (02/23/24) History of arthroplasty of right knee (03/2022) History of lateral meniscus repair of left knee (2007) History of left knee replacement History of prostatectomy (08/2012) History of tonsillectomy (2009) Family History Family History Mother Family history of Alzheimer's disease Father Family history of lung cancer Sibling Diabetes mellitus Hypertension Social History Social History Social History: Surrogate medical decision maker: Chantal Ireland, spouse. Code status: Full code. Smoking packs per day: 0.5 Smoking cigarettes per day: 10.0 Years smoked: 19 Smoking pack-years: 9.50 Smoking status: Former smoker Tobacco type: cigarettes Second hand tobacco smoke exposure: No Smoking end date: 12/07/03 Alcohol intake: current Drinks per week: 2 Substance use: never Substance use type: does not use Do You Feel Safe in your Home?: Yes Lack of Transportation: No Lack of Food: Never True Current Housing: I Have Housing Concerned About Future Housing: No Difficulty Paying Gas/Electric Bills: No Difficulty Paying for Meds: No Currently Unemployed: No Education: Associate Degree Difficulty w/ Childcare or Family Care: No Living arrangements: with family Additional living arrangements comments: Lives with in [place]. 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 Gender identity (if verbalized by the patient): Male Spiritual care concerns: No Comments At time of signature, I have reviewed and agree with nursing past medical, surgical, social and family history unless otherwise noted. Please see nursing chart for further information. There is no relevant family history pertinent to the presenting complaint. Exam Narrative: MUSCULOSKELETAL EXAM GENERAL: Well-appearing, well-nourished, and in no acute distress. HEAD: Normocephalic, atraumatic. NECK: Supple. CHEST: Speaks in full sentences. No respiratory distress. HEART: Regular rate and rhythm. Normal and equal peripheral pulses. EXTREMITIES: Left hip has normal strength and sensation, decreased range of motion with flexion/extension/rotation, but endorses pain with movement. No edema or ecchymosis, No point tenderness. No open wounds, skin tenting, or obvious deformity; alignment normal, pulse palpable and equal bilaterally, skin warm, dry, pink. Capillary refill less than 3 seconds. Distal sensation intact. SKIN: Warm, dry, no rash. NEURO: Alert and oriented x3. PSYCH: Normal mood and affect Course Course Level of Care: Express Care Visit Vital Signs Vital signs: Vital Signs Temperature 96.8 F L 01/11/25 12:11 Pulse Rate 72 01/11/25 12:11 Respiratory Rate 16 01/11/25 12:11 Blood Pressure 135/85 01/11/25 12:11 Pulse Oximetry 99 01/11/25 12:11 Temperature 96.8 F L 01/11/25 12:11 Pulse Rate 72 01/11/25 12:11 Respiratory Rate 16 01/11/25 12:11 Blood Pressure 135/85 01/11/25 12:11 Pulse Oximetry 99 01/11/25 12:11 MDM - Extremity Injury (Lower) MDM Narrative Medical decision making narrative: Discussed physical exam findings. Steroid given. Advised supportive measures and signs/symptoms to go to the ER. Pt is appropriate for outpatient treatment and follow up. Differential Diagnosis Differential diagnosis: Likely other (Hip dislocation,hip bursitis, piriformis syndrome, septic arthritis, osteoarthritis, avascular necrosis of hip, lumbar ra diculopathy) Critical Care Time Critical Care Time Critical Care Time: No Discharge Plan Discharge Clinical Impression: Acute hip pain Patient Disposition: Home Condition: Stable Instructions: Hip Pain (ED) Additional Instructions: Take steroid as prescribed. Rest. Avoid running or excessive walking or anything that worsens the symptoms Tylenol every 8 hours as needed You can alternate with ibuprofen Alternate ice/heat to the site. Lidocaine or salon pas pain patch or use pain cream like icy/hot or biofreeze. Follow up with your primary care provider as needed in 1 week Go to the ER for worsening symptoms or concerns Patient Language: Welsh Prescriptions: New methylprednisolone [Medrol (Marcus)] 4 mg tablets,dose pack See Rx Instructions PO .COMPLEX Qty: 21 0RF Rx Instructions: Take medication as directed on the package. No Action albuterol sulfate 90 mcg/actuation HFA aerosol inhaler 2 puff inhalation QID PRN (Reason: shortness of breath or wheezing) Qty: 8.5 0RF oxybutynin chloride 5 mg tablet extended release 24hr 5 mg PO DAILY acetaminophen 325 mg tablet 325 mg PO BID PRN atorvastatin 10 mg tablet 10 mg PO QHS Qty: 90 3RF Patient Comments: pt stated a month acyclovir 800 mg tablet 800 mg PO DAILY Qty: 90 3RF calcium carbonate 500 mg calcium (1,250 mg) Tablet 1,000 mg PO DAILY fluticasone propion-salmeterol [Advair Diskus] 100-50 mcg/dose blister with device 1 inh inhalation Q12H PRN (Reason: Shortness Of Breath Or Wheezing) Rx Instructions: generic eh-hfbv-bjviv-lycopene-ginkgo 400-600-120 mcg-mcg-mg Tablet 1 tablet PO DAILY cholecalciferol (vitamin D3) 50 mcg (2,000 unit) tablet 50 mcg PO DAILY Qty: 90 1RF Follow-up/Referrals: Wade Hauser MD [Primary Care Provider] - Stand Alone Forms: Work/School Release IP Time of Disposition: 12:30
== END 2025-01-11 12:33 | disposition home or self-care (01) ==
PROVIDERS: PCP Family Medicine
DX: M25.552 Pain in left hip (principal); Z87.891 Personal history of nicotine dependence; M19.90 Unspecified osteoarthritis, unspecified site; E78.5 Hyperlipidemia, unspecified; N32.81 Overactive bladder; J45.909 Unspecified asthma, uncomplicated; E55.9 Vitamin D deficiency, unspecified; E66.9 Obesity, unspecified; Z68.36 Body mass index [BMI] 36.0-36.9, adult; Z85.46 Personal history of malignant neoplasm of prostate; Z90.79 Acquired absence of other genital organ(s); Z96.653 Presence of artificial knee joint, bilateral
CPT/HCPCS: 99213; G0463

== ENCOUNTER 2025-01-18 14:44 | Outpatient (CLI) | payer OTHER, SELFPAY ==
--- NOTE | ~2025-01-18 | XR_ITS ---
XR hip LT min 2V 01/18/2025 14:55 Indication: Left hip pain Procedure: 2 views left hip Comparison: No prior studies for comparison. Findings: There is moderate osteoarthritis of the left hip. No fracture, subluxation or dislocation. No soft tissue abnormality. No foreign bodies. Pelvic rings grossly intact although incompletely visu alized. Impression: 1: Moderate osteoarthritis of the left hip. Reviewed, dictated and finalized at location A. Impression: 1: Moderate osteoarthritis of the left hip.
== END 2025-01-18 14:45 | disposition home or self-care (01) ==
LOC: GOSHIMG 14:45
PROVIDERS: PCP Family Medicine; Visit Provider Family Medicine
DX: M16.12 Unilateral primary osteoarthritis, left hip (principal)
CPT/HCPCS: 73502

== ENCOUNTER 2025-01-22 06:29 | Emergency (ER) | payer OTHER, SELFPAY ==
--- NOTE | ~2025-01-22 | XR_ITS ---
Left ankle Technique: AP and lateral views were obtained. Clinical History: Swelling Findings: No acute fracture or dislocation is seen. Osseous alignment is anatomic. Ankle mortise and other visualized joint spaces are preserved. Soft tissues are otherwise unremarkable. Impression: Unremarkable left ankle. Reviewed, dictated and finalized at location . Impression: Unremarkable left ankle.
--- NOTE | ~2025-01-22 | CT_ITS ---
Noncontrast CT scan of the lumbar spine CLINICAL HISTORY: Left lower extremity paresthesia TECHNIQUE: Axial noncontrast imaging of the lumbar spine was performed. Sagittal and coronal reformat boby images were constructed. Dose reduction technique was used on this scan by utilizing automated ex posure control and iterative reconstruction technique. The dose-length product (DLP) was 1349.98 mGy- cm. FINDINGS: No acute fracture seen. There is 4 mm anterolisthesis of L3 over L4. L1-L2, there is no significant disc bulge or herniation. No spinal canal stenosis or neural foraminal narrowing. At L2-L3, there is mild degenerative disc narrowing. There is minimal disc bulge. No spinal canal ana nosis or neural foraminal narrowing. At L3-L4, there is mild to moderate degenerative disc narrowing. There is mild disc bulge with advanc ed facet arthropathy. There is minimal central canal stenosis. There is mild to moderate right neural foraminal narrowing. Left neural foramen preserved. At L4-L5, there is advanced degenerative spurring. There is disc bulge and mild facet arthropathy. No central canal stenosis. There is severe left neural foraminal compromise. There is mild to moderate right neural foraminal compromise. At L5-S1, there is advanced degenerative spurring. No spinal canal stenosis. There is severe left michelle ral foraminal narrowing, and moderate to advanced right neural foraminal narrowing. Paravertebral soft tissues are unremarkable. Impression: 4 mm anterolisthesis of L3 over L4. Advanced degenerative change at and L4-L5 and L5-S1, with bilateral neural foraminal narrowing, as de tailed above. Mild to moderate degenerative change at L3-L4, as above. Reviewed, dictated and finalized at [facility]. Impression: 4 mm anterolisthesis of L3 over L4. Advanced degenerative change at and L4-L5 and L5-S1, with bilateral neural fora grzegorz narrowing, as detailed above. Mild to moderate degenerative change at L3-L4, as above.
--- OUTSIDE RECORDS SUMMARY | 2025-01-22 06:31 | XMS_ITS | Continuity of Care Document ---
Author Name [facility] Organization [facility] Care Team Providers Care Tv Technician Name Role Phone [facility] Unavailable Unavailable Problems Combined list of problems from [facility] facilities. It does not include entries that were removed or entered in error. Problem Status Onset Date Problem Type Date of Resolution Comments Source Arthritis Active Condition [facility] Erectile dysfunction Active Condition [facility] Exposure to potentially hazardous substance Active Condition [facility] Genital herpes simplex Active Condition [facility] Hyperlipidemia Active Condition [facility] Prostate carcinoma Active Condition [facility] Vitamin D deficiency Active Condition [facility] Diagnosis: ICD-10-CM Z71.3 Dietary counseling and surveillance Active Diagnosis [facility] Diagnosis: ICD-10-CM E78.5 Hyperlipidemia, unspecified Active Diagnosis [facility] Diagnosis: ICD-10-CM Z23 Encounter for immunization Active Diagnosis [facility] Diagnosis: ICD-10-CM R53.83 Other fatigue Active Diagnosis [facility] Medications Combined list of outpatient medications from [facility] and [facility] facilities.Medications provided include 1) outpatient medications from the last 15 months, and 2) patient-reported medications. Medication Details Route Status Patient Instructions Prescription Expires Prescription Number Last Dispense Date Ordering Provider Order Date Order Qty Source ACYCLOVIR 200MG CAP TAKE 4 CAPSULES BY MOUTH ONCE A DAY ORAL ACTIVE TAMMIE BECKHAM KARINA N 2019 [facility] ATORVASTATI N CA 20MG TAB TAKE ONE-HALF TABLET BY MOUTH EVERY EVENING ORAL ACTIVE BHAVANICHO KARINA N [address] [facility] CALCIUM CARBONATE 500MG TAB,CHEWABL E CHEW AND SWALLOW TWO TABLETS BY MOUTH ONCE A DAY ORAL ACTIVE Alfonso CURIEL [address] [facility] CHOLECALCIF ARNIE 25MCG (1,000UNIT) TAB TAKE ONE TABLET BY MOUTH ONCE A DAY ORAL ACTIVE Alfonso CURIEL [address] [facility] OXYBUTYNIN CL 10MG TAB,SA TAKE TWO TABLETS BY MOUTH ONCE A DAY ORAL ACTIVE TAMMIE BECKHAM [address] [facility] TADALAFIL (EQV-ADCIRC A) 20MG TAB TAKE ONE TABLET BY MOUTH ONCE A DAY ORAL ACTIVE Gadiel JAMISON [address] [facility] Immunizations Combined list of available immunizations from the Department of Defense and Veterans Affairs facilities. Immunization Series Date Given Administered By Site Reaction Lot Number CVX Code Drug Outsole Paraffiner Status Comments Source ZOSTER RECOMBINANT [address] [facility] ZOSTER RECOMBINANT [address] [facility] COVID-19 (TRAY), VECTOR-NR, [id number], PF, 0.5 ML 1 2020 212 complet ed [facility] INFLUENZA, SEASONAL, INJECTABLE, PRESERVATIVE FREE 1 2016 140 complet ed HISTORICA L INFORMATI ON - FROM OTHER REGISTRY, [facility] Results Combined list of recent chemistry, hematology and other laboratory results from Department of [facility] and [facility], ranging from 15 months to all on record, depending upon the facility. Order Name Results Value Reference Range Date Interpretation Specimen Comments Source MICRAL/CR EAT PROFILE (STL) ALBUMIN [MASS/VOLUM E] IN URINE 13.2 mg/L 01/14 Specimen Type: URINE No comment entered. Ordering Provider: ADIS BECKHAM Report Released Date/Time: Jan 04, 2024 09:31 AM Reporting Lab: [facility] [address] [facility] [address] Performing Lab: [facility] [address] [facility] [address] [facility] MICRAL/CR EAT PROFILE (STL) ALBUMIN/CRE ATININE [MASS RATIO] IN URINE 14 mg/g 0 - 29 01/14 Specimen Type: URINE No comment entered. Ordering Provider: ADIS BECKHAM Report Released Date/Time: Jan 04, 2024 09:31 AM Reporting Lab: [facility] [address] [facility] [place] [address] Performing Lab: [facility] [address] [place] [address] [facility] MICRAL/CR EAT PROFILE (STL) CREATININE [MASS/VOLUM E] IN URINE 95.1 mg/dL 63 - 166 01/14 Specimen Type: URINE No comment entered. Ordering Provider: ADIS BECKHAM Report Released Date/Time: Jan 04, 2024 09:31 AM Reporting Lab: [facility] [address] [facility] [place] [address] Performing Lab: [address] [phone] [place] [address] COMPREHEN SIVE METABOLIC PANEL CREATININE [MASS/VOLUM E] IN SERUM OR PLASMA 1.01 mg/dL 0.7 - 1.3 01/14 Specimen Type: PLASMA Comment: No hemolysis noted. Ordering Provider: ADIS BECKHAM Report Released Date/Time: Jan 04, 2024 09:31 AM Reporting Lab: [facility] [address] [place] [place] [address] Performing Lab: [address] [address] [facility] COMPREHEN SIVE METABOLIC PANEL UREA NITROGEN [MASS/VOLUM E] IN SERUM OR PLASMA 15.6 mg/dL 9.0 - 25.0 01/14 Specimen Type: PLASMA Comment: No hemolysis noted. Ordering Provider: ADIS BECKHAM Report Released Date/Time: Jan 04, 2024 09:31 AM Reporting Lab: [facility] [address] [facility] [place] [address] Performing Lab: [facility] [address] [place] [address] [facility] COMPREHEN SIVE METABOLIC PANEL GLUCOSE [MASS/VOLUM E] IN SERUM OR PLASMA 93 mg/dL 72 - 99 01/14 Specimen Type: PLASMA Comment: No hemolysis noted. Ordering Provider: ADIS BECKHAM Report Released Date/Time: Jan 04, 2024 09:31 AM Reporting Lab: [facility] [address] [facility] [address] Performing Lab: [facility] [address] [facility] [address] [facility] COMPREHEN SIVE METABOLIC PANEL SODIUM [MOLES/VOLU ME] IN SERUM OR PLASMA 136 meq/L 136 - 145 01/14 Specimen Type: PLASMA Comment: No hemolysis noted. Ordering Provider: ADIS BECKHAM Report Released Date/Time: Jan 04, 2024 09:31 AM Reporting Lab: [facility] [address] [facility] [address] Performing Lab: [facility] [address] [facility] [address] [facility] COMPREHEN SIVE METABOLIC PANEL POTASSIUM [MOLES/VOLU ME] IN SERUM OR PLASMA 4.0 meq/L 3.5 - 5 01/14 Specimen Type: PLASMA Comment: No hemolysis noted. Ordering Provider: ADIS BECKHAM Report Released Date/Time: Jan 04, 2024 09:31 AM Reporting Lab: [facility] [address] [facility] [address] Performing Lab: [facility] [address] [facility] [address] [facility] COMPREHEN SIVE METABOLIC PANEL CHLORIDE [MOLES/VOLU ME] IN SERUM OR PLASMA 102 meq/L 98 - 107 01/14 Specimen Type: PLASMA Comment: No hemolysis noted. Ordering Provider: ADIS BECKHAM Report Released Date/Time: Jan 04, 2024 09:31 AM Reporting Lab: [facility] [address] [facility] [address] Performing Lab: [facility] [address] [place] [address] [facility] COMPREHEN SIVE METABOLIC PANEL CARBON DIOXIDE, TOTAL [MOLES/VOLU ME] IN SERUM OR PLASMA 24 meq/L 22 - 31 01/14 Specimen Type: PLASMA Comment: No hemolysis noted. Ordering Provider: ADIS BECKHAM Report Released Date/Time: Jan 04, 2024 09:31 AM Reporting Lab: [facility] [address] [place], [place] [phone] Performing Lab: [facility] [address] [place] [phone] [place] [address] COMPREHEN SIVE METABOLIC PANEL CALCIUM [MASS/VOLUM E] IN SERUM OR PLASMA 9.6 mg/dL 8.4 - 10.4 01/14 Specimen Type: PLASMA Comment: No hemolysis noted. Ordering Provider: ADIS BECKHAM Report Released Date/Time: Jan 04, 2024 09:31 AM Reporting Lab: [place] [address] Performing Lab: [place] [address] [place] [address] COMPREHEN SIVE METABOLIC PANEL PROTEIN [MASS/VOLUM E] IN SERUM OR PLASMA 8.4 g/dL 6 - 8.6 01/14 Specimen Type: PLASMA Comment: No hemolysis noted. Ordering Provider: ADIS BECKHAM Report Released Date/Time: Jan 04, 2024 09:31 AM Reporting Lab: [facility] [address] [place], [place] [phone] Performing Lab: [address] [phone] [place] [address] COMPREHEN SIVE METABOLIC PANEL ALBUMIN [MASS/VOLUM E] IN SERUM OR PLASMA 4.5 g/dL 3.4 - 5 01/14 Specimen Type: PLASMA Comment: No hemolysis noted. Ordering Provider: ADIS BECKHAM Report Released Date/Time: Jan 04, 2024 09:31 AM Reporting Lab: [facility] [address] [place], [place] [phone] Performing Lab: [facility] [address] [place] [phone] [place] [address] COMPREHEN SIVE METABOLIC PANEL BILIRUBIN.T OTAL [MASS/VOLUM E] IN SERUM OR PLASMA 0.8 mg/dL 0.2 - 1.2 01/14 Specimen Type: PLASMA Comment: No hemolysis noted. Ordering Provider: ADIS BECKHAM Report Released Date/Time: Jan 04, 2024 09:31 AM Reporting Lab: [facility] [address] [place] [address] Performing Lab: [facility] [address] [place] [address] [facility] COMPREHEN SIVE METABOLIC PANEL ALKALINE PHOSPHATASE [ENZYMATIC ACTIVITY/VO LUME] IN SERUM OR PLASMA 95 U/L 40 - 150 01/14 Specimen Type: PLASMA Comment: No hemolysis noted. Ordering Provider: ADIS BECKHAM Report Released Date/Time: Jan 04, 2024 09:31 AM Reporting Lab: [facility] [address] [place] [address] Performing Lab: [facility] [address] [place] [phone] [facility] COMPREHEN SIVE METABOLIC PANEL ASPARTATE AMINOTRANSF ERASE [ENZYMATIC ACTIVITY/VO LUME] IN SERUM OR PLASMA 23 U/L 5 - 34 01/14 Specimen Type: PLASMA Comment: No hemolysis noted. Ordering Provider: ADIS BECKHAM Report Released Date/Time: Jan 04, 2024 09:31 AM Reporting Lab: [facility] [address] [facility] [place] [address] Performing Lab: [facility] [address] [place] [address] [facility] COMPREHEN SIVE METABOLIC PANEL ALANINE AMINOTRANSF ERASE [ENZYMATIC ACTIVITY/VO LUME] IN SERUM OR PLASMA 18 U/L 8 - 40 01/14 Specimen Type: PLASMA Comment: No hemolysis noted. Ordering Provider: ADIS BECKHAM Report Released Date/Time: Jan 04, 2024 09:31 AM Reporting Lab: [facility] [address] [facility] [place] [address] Performing Lab: [facility] [address] [place] [address] [facility] COMPREHEN SIVE METABOLIC PANEL GLOMERULAR FILTRATION RATE/1.73 SQ M.PREDICTED [VOLUME RATE/AREA] IN SERUM, PLASMA OR BLOOD BY CREATININE- BASED FORMULA (CKD-EPI 2020) 83.6 60 01/14 Specimen Type: PLASMA Comment: No hemolysis noted. Ordering Provider: ADIS BECKHAM Report Released Date/Time: Jan 04, 2024 09:31 AM Reporting Lab: [address] [address] Performing Lab: [address] [address] [facility] LIPID PANEL (STL) CHOLESTEROL [MASS/VOLUM E] IN SERUM OR PLASMA 162 mg/dL 0 - 200 01/14 Specimen Type: PLASMA Comment: No hemolysis noted. Ordering Provider: ADIS BECKHAM Report Released Date/Time: Jan 04, 2024 09:31 AM Reporting Lab: [address] [address] Performing Lab: [address] [address] [facility] LIPID PANEL (STL) TRIGLYCERID E [MASS/VOLUM E] IN SERUM OR PLASMA 89 mg/dL 0 - 150 01/14 Specimen Type: PLASMA Comment: No hemolysis noted. Ordering Provider: ADIS BECKHAM Report Released Date/Time: Jan 04, 2024 09:31 AM Reporting Lab: [address] [address] Performing Lab: [address] [address] [facility] LIPID PANEL (STL) CHOLESTEROL IN LDL [MASS/VOLUM E] IN SERUM OR PLASMA BY CALCULATION 101 mg/dL 01/14 Specimen Type: PLASMA Comment: No hemolysis noted. Ordering Provider: ADIS BECKHAM Report Released Date/Time: Jan 04, 2024 09:31 AM Reporting Lab: [address] [address] Performing Lab: [address] [phone] [place] [address] LIPID PANEL (STL) CHOLESTEROL IN HDL [MASS/VOLUM E] IN SERUM OR PLASMA 43 mg/dL 40 01/14 Specimen Type: PLASMA Comment: No hemolysis noted. Ordering Provider: ADIS BECKHAM Report Released Date/Time: Jan 04, 2024 09:31 AM Reporting Lab: [place] [address] Performing Lab: [address] HGA1C HEMOGLOBIN A1C/HEMOGLO BIN.TOTAL IN BLOOD 6.0 4.0 - 6.0 01/14 Specimen Type: BLOOD No comment entered. Ordering Provider: ADIS BECKHAM Report Released Date/Time: Jan 04, 2024 09:31 AM Reporting Lab: [place] [address] Performing Lab: [address] PROST. SPECIFIC AG.(PB-ST L) PROSTATE SPECIFIC AG [MASS/VOLUM E] IN SERUM OR PLASMA <0.100 ng/mL 0 - 4 01/14 Specimen Type: SERUM Comment: The listed sex of this patient may not be a typical indication for this test. Therefore, reference ranges or interpretiv e criteria listed may not be valid. Clinical correlation suggested. Ordering Provider: ADIS BECKHAM Report Released Date/Time: Jan 04, 2024 09:31 AM Reporting Lab: [place] [phone] Performing Lab: [address] TSH W/ REFLEX FT4 (STL) THYROTROPIN [UNITS/VOLU ME] IN SERUM OR PLASMA 0.778 u[IU]/ mL 0.47 - 5 01/14 Specimen Type: PLASMA Comment: No hemolysis noted. Ordering Provider: ADIS BECKHAM Report Released Date/Time: Jan 04, 2024 09:31 AM Reporting Lab: [place] [address] Performing Lab: [address] VITAMIN D, 25-HYDROX Y 25-HYDROXYV ITAMIN D3 [MASS/VOLUM E] IN SERUM OR PLASMA 81.1 ng/mL 30 - 96 01/14 Specimen Type: SERUM No comment entered. Ordering Provider: ADIS BECKHAM Report Released Date/Time: Jan 04, 2024 09:31 AM Reporting Lab: [place] [address] Performing Lab: [address] CYSTATIN C EGFR PANELS (STL-PB-M A) CYSTATIN C [MASS/VOLUM E] IN SERUM OR PLASMA 1.21 mg/L 0.57 - 1.80 01/14 Specimen Type: PLASMA Comment: Choice of which of the reported eGFR values to use depends on the clinical situation. For example, for patients with severe muscle wasting or reduced muscle mass, eGFR calculated using the 2012 cystatin equation may be preferred. Ordering Provider: ADIS BECKHAM Report Released Date/Time: January 13, 2024 11:47 AM Reporting Lab: [place] [address] Performing Lab: [address] CYSTATIN C EGFR PANELS (STL-PB-M A) CKD-EPI CYSTATIN C (2012) 59.6 60 01/14 Specimen Type: PLASMA Comment: Choice of which of the reported eGFR values to use depends on the clinical situation. For example, for patients with severe muscle wasting or reduced muscle mass, eGFR calculated using the 2012 cystatin equation may be preferred. Ordering Provider: ADIS BECKHAM Report Released Date/Time: January 13, 2024 11:47 AM Reporting Lab: [place] [id number] Performing Lab: [facility] [address] [facility] [address] [facility] CYSTATIN C EGFR PANELS (STL-PB-M A) CKD-EPI CREAT-CYSC (2020) 71.1 60 01/14 Specimen Type: PLASMA Comment: Choice of which of the reported eGFR values to use depends on the clinical situation. For example, for patients with severe muscle wasting or reduced muscle mass, eGFR calculated using the 2011 cystatin equation may be preferred. Ordering Provider: ADIS BECKHAM Report Released Date/Time: January 13, 2024 11:47 AM Reporting Lab: [address] [address] Performing Lab: [address] [address] [facility] CYSTATIN C EGFR PANELS (STL-PB-M A) CREATININE [MASS/VOLUM E] IN SERUM OR PLASMA 1.03 mg/dL 0.7 - 1.3 01/14 Specimen Type: PLASMA Comment: Choice of which of the reported eGFR values to use depends on the clinical situation. For example, for patients with severe muscle wasting or reduced muscle mass, eGFR calculated using the 2011 cystatin equation may be preferred. Ordering Provider: ADIS BECKHAM Report Released Date/Time: January 13, 2024 11:47 AM Reporting Lab: [address] [address] Performing Lab: [address] [address] [facility] Encounters Combined list of: 1) Encounters from Department of [facility] Affairs facilities going backup to the last 18 months, not all [place] inpatient encounters are included; 2) Encounters from the Department of Defense facilities going backup to 280 months. Location Location Details Encounter Type Encounter Number Reason For Visit Attending Provider ADM Date DC Date Status Disposition Source [facility] Outpatient Encounter [id number] CODY BUCK 09/18 [facility] N [facility] Outpatient Encounter [id number] 09/21 [facility] Outpatient Encounter [id number] ANURAG BECKHAM N 09/24 [facility] O/P EST MOD 30 MIN [id number] Diagnos is: ICD-10- CM R53.83 Other fatigue CHARBEL CURIEL M 11/12 [facility] Outpatient Encounter [id number] 11/22 [facility] FLU IMM NO ADMIN DOC LIDIA [id number] [id number] Diagnos is: ICD-10- CM Z23 Encount er for immuniz atEARLENE Rod RA 12/10 [facility] [place] [id number] Diagnos is: ICD-10- CM Z71.3 Dietary debt and budget counselor ing and surveil [place] M 12/22 [facility] Outpatient Encounter [id number] 12/23 [facility] Outpatient Encounter [id number] 01/12 [facility] O/P EST MOD 30 MIN [id number] Diagnos is: ICD-10- CM E78.5 Hyperli pidemia , unspeci fied ANURAG BECKHAM N 01/12 [facility] MED NUTRITION INDIV SUBSEQ [id number] Diagnos is: ICD-10- CM Z71.3 Dietary debt and budget counselor ing and surveil [place] 02/02 [facility] MED NUTRITION INDIV SUBSEQ [id number] Diagnos is: ICD-10- CM Z71.3 Dietary debt and budget counselor ing and surveil [place] 04/13 [facility] MED NUTRITION INDIV SUBSEQ [id number] Diagnos is: ICD-10- CM Z71.3 Dietary debt and budget counselor ing and surveil [place] 06/01 [facility] MED NUTRITION INDIV SUBSEQ [id number] Diagnos is: ICD-10- CM Z71.3 Dietary debt and budget counselor ing and surveil [place] 08/24 [facility] Outpatient Encounter [id number] LIVE GEORGE 08/29 [facility] Outpatient Encounter [id number] ANURAG BECKHAM [place] N 09/09 [facility] Outpatient Encounter [id number] ANURAG BECKHAM [place] N 11/02 [facility] Outpatient Encounter [id number] 11/15 [facility] MED NUTRITION INDIV SUBSEQ [id number] Diagnos is: ICD-10- CM Z71.3 Dietary debt and budget counselor ing and surveil [place] 12/23 [facility] Social History Combined list of available smoking, tobacco, and other social history from Department of Defense and Veterans Affairs facilities. Social History Type Response Date Comment Sourc e Tobacco smoking status NHIS [facility]-TOBACCO FORMER USER 01/13/2024 [facility] History of tobacco use [place]-TO[place] QUIT 15 YRS OR MORE 01/13/2024 [facility] History of tobacco use [place]-TOBACCO FORMER USER 12/19/2022 [facility] History of tobacco use VA-TOBACCO FORMER USER 05/23/2022 [facility] History of tobacco use [place]-TOBACCO FORMER USER 05/23/2021 [facility] This section is an empty social history section. DoD Plan of Care List of future care activities from Department of Veterans Affairs facilities. Additional future care activities may be listed in the Assessment and Plan section. Date/Time Care Activity Care Activity Detail Facili ty 03/07/2025 AMBULATORY - MEDICINE AMBULATORY - MEDICI NE [facility]
--- OUTSIDE RECORDS SUMMARY | 2025-01-22 06:31 | XMS_ITS | Clinical Summary ---
Author Organization [facility] Address [address] [place] [address] Care Team Providers Care Dogger Name Role Phone Unavailable Primary Care Provider Unavailabl e Social History Tobacco Use Types Packs/Day Years Used Date Smoking Tobacco: Never Assessed Sex and Gender Information Value Date Recorded Sex Assigned at Not on file Legal Sex Male 7:18 PM CDT Gender Identity Not on file Sexual Orientation Not on file Plan of Treatment Health Maintenance Due Date Last Done Comments Colorectal Cancer Screening Colonoscopy (10 Years) 1960 Annual Physical 1963 Hepatitis C 1978 DTaP, Tdap and Td Vaccines ( 1 - Tdap) 1979 Pneumococcal Vaccine: 50+ Ye ars (1 of 1 - PCV) 2010 Zoster Vaccines (1 of 2) 2010 COVID-19 Vaccine ( - 2023-2 5 season) 2024 RSV Immunization or 60+ Years (1 - 1-dose 75+ series) 2035 Meningococcal B Vaccine Aged Out No l onger eligible based on patient's age to complete this topic Meningococcal Vaccine Aged Out No chad cami eligible based on patient's age to complete this topic RSV Immunizations Under 20 Months Aged Out No longer eligible based on patient's age to complete this topic
--- OUTSIDE RECORDS SUMMARY | 2025-01-22 06:31 | XMS_ITS | Data Portability ---
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 He would like to schedule left knee replacement. We talked about having him try Celebrex 200 mg daily instead of the Aleve. He did well with that after his knee replacement surgery and I have prescribed that for him. He will stop the Aleve. We talked about the option of a cortisone shot. He does not feel that the last 1 gave him much relief so he declines. I have reviewed the risk of surgery with him in detail. I reviewed that he will have numbness lateral to the incision is with the right knee the patient's have difficulty kneeling after knee replacement some patient have anterior sensitivity in the knee. Risk of infection was discussed. He is at increased risk for infection because of obesity we would plan to use extended oral antibiotics postoperatively as we did last time. He has gained 10 lb and that puts his BMI 2/40 and I explained to him that he will not be allowed to proceed with elective total knee replacement in LEs his BMI is less than 40 when he is weighed at time of pre screen which will be in approximately 6-8 weeks from now. I recommended that he get his weight down to no greater than 268 lb to a BMI of less than 40. He feels he can easily accomplished this. He over ate a bit during the . Risk of blood clots was discussed and has with his previous knee will plan to use Eliquis for 2 weeks followed by baby aspirin twice daily for 4 additional weeks. Risk of instability stiffness fracture component loosening and need for revision surgery discussed. Risk of nerve injury bleeding transfusion and risk of medical complications such as heart attack stroke pulmonary embolism and were reviewed. All of his questions were answered. We will proceed with surgery as discussed as soon as possible. 40 minutes were spent total care this patient more than half the time spent in [facility] care. [email or web address] Not available 08/15/2023 15:18:42 Plan of Treatment Reminders Order Date Submit Date Provider Last Modified By Organization Details Last Modified Time Details Appointments None recorded. Lab None recorded. Referral None recorded. Procedures None recorded. Surgeries None recorded. Imaging XR, knee 2022 023 [email or web address] [facility], [address], [place], [address], 10:07:42 Medication Orders Celebrex 200 mg capsule 2022 023 [email or web address] [facility] [facility], [place], [address], 15:06:48 Patient TargetsNo targets recorded. Patient InstructionsNo instructions recorded. Reason for Referral None Reported. Results Created Date Observation Date Name Description Value Unit Range Abnormal Flag Note LastModifiedBy Organization Detail LastModifiedTime 03/12/20 22 03/06/2022 jose luis mohan am No observ ation record ed. [id number] Not Available 11/05/2022 04:52:22 03/19/20 22 03/19/2022 XR, knee No observ ation record ed. [id number] [facility] [address], [place], [address], 11/05/2022 04:52:22 04/30/20 22 XR, knee No observ ation record ed. [id number] [facility] [address] [facility] [address], [place], [address], 11/05/2022 04:52:22 08/14/20 23 XR, knee No observ ation record ed. [email or web address] [facility] [address], [place], [address], 08/15/2023 15:14:00 Result Notes None recorded. Problems Name Problem SNOMED Code Status Onset Date Resolution Date Notes Provider Name and Address Organization Details Recorded Time Pain of left knee joint [id number] 07 Active 2022 CISCO Ulloa, [employer] 3 10:22:18 Osteoarthr itis 517656356 Active 2019 Not Available [facility] 3 04:45:08 Pain of right knee joint 7202471782524 00 Active 2021 Not Available [facility] 3 04:45:08 Problem Notes None recorded. Procedures Surgical History Date Name Laterality Status Provider Name and Address Organization Details Recorded Time 08/28/20 12 Prostate completed Not Available [facility] 3 04:41:02 Knee Replacement completed C[facility]CO Ulloa [employer] 08/14/2023 10:21:29 Imaging Results Imaging Date Name Status LastModified by Organization Details LastModified Time 03/19/2022 XR, knee completed [id number] [facility] [address], [place], [address], 11/05/2022 04:52:22 03/06/2022 electrocardiogram completed [id number]. [id number] Information not available 11/05/2022 04:52:22 04/30/2022 XR, knee completed [id number] [facility] [address], [place], [address], 11/05/2022 04:52:22 08/14/2023 XR, knee completed [email or web address] [facility] [address], [place], [address], 08/15/2023 15:14:00 Procedure Notes None recorded. Medical Equipment None Reported. Allergies No known drug allergies Medications Name Sig Start Date Stop Date Status Note LastModified by Organization Details LastModified Time celecoxib 200 mg capsule TAKE 1 CAPSULE BY MOUTH ONCE DAILY AT 8 AM active Not Available Not Available No t Available amoxicillin 500 mg capsule TAKE FOUR CAPSULES BY MOUTH ONE HOUR BEFORE APPOINTME NT 08/14 completed Not Available Not Available Not Available prednisone 10 mg tablet TAKE 3 TABLETS BY MOUTH EVERY DAY FOR 3 DAYS THEN 2 TABLETS DAILY FOR 2 DAYS THEN 1 TABLET DAILY FOR 1 DAY 07/17 completed Not Available Not Available Not Available atorvastati n 10 mg tablet TAKE 1 TABLET BY MOUTH ONCE DAILY AT BEDTIME active Not Available Not Available No t Available azithromyci n 250 mg tablet TAKE 2 TABLETS BY MOUTH ON DAY 1, AND THEN TAKE 1 TABLET BY MOUTH ONCE A DAY ON DAY 2 THROUGH DAY 5 08/14 completed Not Available Not Available Not Available hydrocodone 5 mg-acetamin ophen 325 mg tablet TAKE 1 TO 2 TABLETS BY MOUTH EVERY 4 TO 6 HOURS NEEDED FOR PAIN . DO NOT EXCEED 10 PER 24 HOURS 01/01 completed Not Available Not Available Not Available meloxicam 15 mg tablet Take 1 tablet every day by oral route. active Not Available Not Available No t Available bupivacaine HCl 0.5 % (5 mg/mL) injection solution In office injection administe red by the provider 01/01 completed Not Available Not Available Not Available prednisone 20 mg tablet TAKE 2 TABLETS BY MOUTH ONCE DAILY FOR 5 DAYS active Not Available Not Available No t Available penicillin V potassium 500 mg tablet TAKE 1 TABLET BY MOUTH EVERY 12 HOURS FOR 10 DAYS 07/17 completed Not Available Not Available Not Available Advair Diskus 100 mcg-50 mcg/dose powder for inhalation INHALE 1 DOSE BY MOUTH EVERY 12 HOURS active Not Available Not Available No t Available acyclovir 800 mg tablet TAKE 1 TABLET BY MOUTH ONCE DAILY active Not Available Not Available No t Available ciclopirox 8 % topical solution active Not Available Not Available Not Available Kenalog 10 mg/mL suspension for injection In office injection administe red by the provider 01/01 completed [facility]: 0003- 0494- 20 Not Available Not Available Not Available hydrocodone 7.5 mg-acetamin ophen 325 mg tablet TAKE 1 TO 2 TABLETS BY MOUTH EVERY 4 TO 6 HOURS NEEDED FOR PAIN . DO NOT EXCEED 6 PER 24 HOURS 03/31 completed Not Available Not Available Not Available cephalexin 500 mg capsule TAKE 1 CAPSULE BY MOUTH EVERY 8 HOURS active Not Available Not Available No t Available neomycin-po lymyxin-dex ameth 3.5 mg/mL-10,00 0 unit/mL-0.1 % eye drops INSTILL 1 TO 2 GTS IN OS QID FOR 3 DAYS active Not Available Not Available No t Available Advair Diskus 250 mcg-50 mcg/dose powder for inhalation INHALE 1 DOSE BY MOUTH TWICE DAILY active Not Available Not Available No t Available Advair Diskus 500 mcg-50 mcg/dose powder for inhalation INHALE 1 DOSE BY MOUTH EVERY 12 HOURS active Not Available Not Available No t Available diclofenac sodium 75 mg tablet,charlie yed release Take 1 tablet PO BID with food active Not Available Not Available No t Available mupirocin 2 % topical ointment Applied as directed in both nostrils twice daily for 5 days starting 03-14-22 active Not Available Not Available No t Available ibuprofen 600 mg tablet TAKE 1 TABLET BY MOUTH 4 TIMES DAILY NEEDED FOR FEVER OR PAIN 10/30 completed Not Available Not Available Not Available levofloxaci n 750 mg tablet TAKE 1 TABLET BY MOUTH ONCE DAILY active Not Available Not Available No t Available methylpredn isolone 4 mg tablets in a dose pack TAKE BY MOUTH DIRECTED ON INSIDE OF PACKAGE 08/14 completed Not Available Not Available Not Available albuterol sulfate HFA 90 mcg/actuati on aerosol inhaler INHALE 2 PUFFS BY MOUTH 4 TIMES DAILY NEEDED FOR SHORTNESS OF BREATH FOR WHEEZING active Not Available Not Available No t Available SSD 1 % topical cream APPLY 1 CREAM TWICE DAILY TO AFFECTED AREA active Not Available Not Available No t Available Hibiclens 4 % topical liquid Perform daily total body-wash for 5 days starting 03-14-2203/31 completed Not Available Not Available Not Available amoxicillin 875 mg-potassiu m clavulanate 125 mg tablet TAKE 1 TABLET BY MOUTH TWICE DAILY 08/14 completed Not Available Not Available Not Available oxycodone 5 mg tablet Take 1 tablet every 4 hours by oral route. 08/14 completed Not Available Not Available Not Available tadalafil 20 mg tablet TAKE 1 TABLET BY MOUTH ONCE DAILY NEEDED active Not Available Not Available No t Available chlorhexidi ne gluconate 0.12 % mouthwash SWISH 1/2 OUNCE AFTER THOROUGH BRUSHING AND FLOSSING IN THE MORNING AFTER BREAKFAST AND BEFORE BEDTIME. 04/30 completed Not Available Not Available Not Available lidocaine (PF) 10 mg/mL (1 %) injection solution In office injection administe red by the provider 01/01 completed [facility]: 0409- 4276- 17 Not Available Not Available Not Available cholecalcif kalli (vitamin D3) 1,250 mcg (50,000 unit) capsule TAKE 1 CAPSULE BY MOUTH ONCE A WEEK active Not Available Not Available No t Available PreviDent 5000 Booster Plus 1.1 % dental paste USE DIRECTED active Not Available Not Available No t Available Eliquis 2.5 mg tablet TAKE 1 TABLET BY MOUTH EVERY 12 HOURS 04/30 completed Not Available Not Available Not Available Flublok Quad (PF) 180 mcg (45 mcg x 4)/0.5 mL IM syringe PHARMACIS T ADMINISTE RED IMMUNIZAT ION ADMINISTE RED AT TIME OF DISPENSIN G 10/17 completed Not Available Not Available Not Available Vitals Date Recorded Body height Provider Name an d Address Organization Details Last Updated DateTime 03/31/2022 177.8 cm Not Available [facility] 3 04:43:09 Date Recorded Body height Provider Name an d Address Organization Details Last Updated DateTime 04/16/2022 177.8 cm Not Available [facility] 3 04:43:09 Date Recorded Body height Provider Name an d Address Organization Details Last Updated DateTime 04/30/2022 177.8 cm Not Available [facility] 3 04:43:10 Date Recorded Body height Provider Name an d Address Organization Details Last Updated DateTime 06/04/2022 177.8 cm Not Available [facility] 3 04:43:10 Date Recorded Body height Body mass index (BMI) Body weight Provider Name and Address Organization Details Last Updated DateTime 08/14/2023 175.26 cm 40.6 kg/m2 256947.9 g [facility] Ulloa [place] [employer] [facility] 08/14/2023 10:26:43 Social History Question Answer Notes LastModified by Organizat ion Details LastModified Time Tobacco Smoking Status Never Smoker Not Available [facility] 11/05/2022 04:19:53 What Was The Date Of Your Most Recent Tobacco Screening? 01/16/2021 [id number] Information not available 11/05/2022 Sex: Unknown Functional Status Question Answer Note LastModified by Organizat ion Details LastModified Time What is your level of alcohol consumption? None [id number] Information not available 11/05/2022 Mental Status None recorded. Family History Nothing Reported. Medical History Condition Response BLINDNESS N KIDNEY STONES N MRSA N CARPAL TUNNEL SYNDROME N LUNG DISEASE/DISORDER N HISTORY OF DRUG ABUSE N COPD N RADIATION / CHEMOTHERAPY N SPORTS INJURY N ANKLE PAIN N BLOOD DISEASES N SCHIZOPHRENIA N SHINGLES N SHOULDER PAIN N BOWEL PROBLEMS N DEPRESSION (INCLUDING POST ) N STROKE/TIA N ULCERS N KNEE PAIN N BENIGN PROSTATIC HYPERPLASIA N OBESITY N GERD/NAUSEA N ANEURYSM N URINARY/BLADDER/KIDNEY PROBLEMS N CORONARY ARTERY DISEASE (CAD) N ADDICTION CONCERNS N USE OF BLOOD THINNERS N SKIN PROBLEMS N EMPHYSEMA N MUSCLE,JOINT OR BONE PROBLEMS N DVT N STOMACH ULCERS N BLOOD CLOTS N USE OF NSAIDS N CONCUSSION OR SPINAL TRAUMA N NEUROPATHY N AIDS/HIV N FRACTURES N HYPERTENSION N ELBOW PAIN N TOURETTE'S N Metal allergy N ANXIETY DISORDER N BLOOD TRANSFUSION N ANEMIA/BLOOD DISORDER N BIPOLAR DISORDER N BRONCHITIS N OSTEOARTHRITIS N TUBERCULOSIS N FOOT PROBLEM N HEART VALVE DISORDERS N ALLERGIES/HAYFEVER N SOFT TISSUE INJURY N INFECTIOUS DISEASE N HEART ARRHYTHMIA N INSOMNIA N HIGH CHOLESTEROL / HYPERLIPIDEMIA N RHEUMATOID ARTHRITIS N EDEMA N CHRONIC PAIN SYNDROME N CAROTID BLOCKAGE N BACK / NECK PROBLEMS N HAVE YOU BEEN HOSPITALIZED OR SEEN IN [facility] IN THE PAST YEAR ? N BURSITIS N HERNIATED DISC N DIALYSIS N FIBROMYALGIA N OSTEOPOROSIS N ARTHRITIS Y NO SIGNIFICANT PAST MEDICAL HISTORY N PERIPHERAL NEUROPATHY N DIABETES, TYPE N HEARTBURN / REFLUX N HEPATITIS / LIVER DISEASE N GOUT N ALZHEIMER'S DISEASE N SLEEP DISORDER N HERPES N HEADACHES/MIGRAINES N SEIZURES/EPILEPSY N VASCULAR DISEASE N Blood Disorder N HIP PAIN N DIZZINESS N HEAD TRAUMA OR INJURY N HEART DISEASE/HEART PROBLEMS N MULTIPLE SCLEROSIS N CANCER: SPECIFY Y CARDIAC ARRHYTHMIA N ANESTHESIA COMPLICATIONS N ATRIAL FIBRILLATION N AUTOIMMUNE DISEASE N Past Encounters Encounter ID Performer Location Encounter Start Date Encounter Closed Date Diagnosis/Indication Diagnosis SNOMED-CT Code Diagnosis ICD10 Code Diagnosis Note [id number] Sawyer Guerrero MD [facility] [address] [place] [address] 01/16/2021 00:00:00 01/26/2021 22:39:30 [id number] MD GRANT [facility] [address] [place] [address] 04/17/2021 00:00:00 04/17/2021 10:00:44 [id number] Sawyer Guerrero MD [facility] [address] [place] [address] 07/17/2021 00:00:00 07/17/2021 10:00:55 [id number] MD GRANT [facility] [address] [place] [address] 10/30/2021 00:00:00 10/30/2021 16:12:07 [id number] MD GRANT [facility] [address] [place] [address] 01/01/2022 00:00:00 01/05/2022 21:32:07 [id number] MD GRANT [facility] [address] [place] [address] 03/31/2022 00:00:00 03/31/2022 14:48:04 [id number] MD GRANT [facility] [address] [place] [address] 04/16/2022 00:00:00 04/16/2022 14:39:59 [id number] Sawyer Guerrero MD [facility] [address] [place] [address] 04/30/2022 00:00:00 04/30/2022 10:42:16 [id number] MD GRANT [facility] [address] [place] [address] 06/04/2022 00:00:00 06/07/2022 17:58:02 [id number] Sawyer Guerrero MD [facility] [place] [address] [place] [address] 08/14/2023 09:59:03 08/17/2023 10:07:42 Pain of left knee joint [id number] 14220 M25.562 Health Concerns Section Related Observation LastModified by Organization Detai ls LastModified Time None Recorded Concern Status LastModified by Organization Details LastModified Time None Recorded Advance Directives Directive None Recorded Payers Encounter Date Sequence Insurance Name Policy Number Policy Brandt Covered Member ID Brandt Member ID Guarantor Name 08/14/2023 1 [facility] [id number] Dave Ireland [id number] Dave Ireland Notes Date Note Type Note Provider Name and Address Organization Details Recorded Time 08/14/2023 text/html patient returns. We last saw him 3 months ago. He was 10 weeks out after his right total knee arthroplasty at that time. He has done well his left knee replacement. He would like to schedule total knee arthroplasty for his Left knee at this time. His chief complaint is anteromedial left knee pain which is worse with weight-bearing and especially stairs. He has a history of arthroscopic meniscal trimming in left knee many many years ago. 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 He has been started on Lupron and receives an injection every 6 months. His last injection was in July. He has been taking Aleve 440 mg daily. Last month he did have a laceration over his finger and was treated with stitches and Keflex. Sawyer Guerrero MD [address] [place] [address], [address], [address], [place] [facility] [employer] 08/15/2023 15:18:46
[2025-01-22 06:41] VITALS: BP 153/97; PULSE 64; RESP 18; TEMP 36.6; O2SAT 97
--- NOTE | 2025-01-22 07:23 | ED.LOWEXIN ---
HPI - Extremity Injury (Lower) General Chief Complaint: Extremity Injury, Lower Stated Complaint: Left leg pain Time Seen by Provider: 01/22/25 07:22 Source: patient and family Mode of arrival: ambulatory Limitations: no limitations History of Present Illness HPI Narrative: Patient presents with paresthesias is which he describes as numbness and tingling ( like needles, feels hot ) originating in left leg at the medial malleolus and then radiating anterolaterally up the left eid into the anterior left thigh. This has never happened before. He noticed this shortly after mowing the grass with a push mower earlier 1-2 weeks ago. He denies any back pain. He states the pain travels as far superiorly as his anterior thigh, occasionally to lateral hip but not into flank or back. No history of diabetes. Rare/occasional alcohol consumption. Denies wearing tight belts or toolbelt. No history of DVT, PE. Not on anticoagulation. Has been seen at urgent care as well as primary care physician Dr Wahl earlier this week for this issue for which hip x-ray was obtained. Meloxicam was also ordered but not working per patient. History of knee surgery on the left performed by Dr Guerrero (also right knee). He has trialed heat, Tylenol, ice. His ankle was initially swollen at 1st although this is improved. He denies any fevers or chills. Related Data Home Medications Medication Instructions Recorded Confirmed Last Taken Type calcium carbonate 1,000 mg PO DAILY 02/02/24 01/18/25 Unknown History poiuavdx-mtnu-qhxqf acid 400 1 tablet PO DAILY 02/02/24 01/18/25 02/19/24 History mcg-lycopene 600 mcg-ginkgo 120 mg tablet acetaminophen 325 mg tablet 325 mg PO BID PRN 07/04/24 01/18/25 Unknown History oxybutynin chloride 5 mg 5 mg PO DAILY 07/04/24 01/18/25 Unknown History tablet,extended release 24 hr Allergies Allergy/AdvReac Type Severity Reaction Status Date / Time morphine Allergy Unknown itchng Verified 01/22/25 06:41 oxycodone Allergy Unknown Itching Verified 01/22/25 06:41 ON LICENSE OF [facility] Past Medical History Medical History Overactive bladder Abnormal prominence of clavicle Prostate cancer Vitamin D deficiency Reactive airway disease Arthritis Obesity Seasonal allergies Dyslipidemia Surgical History Surgical History History of left knee replacement History of arthroplasty of left knee (02/23/24) History of arthroplasty of right knee (03/2022) History of lateral meniscus repair of left knee (2007) History of tonsillectomy (2009) History of prostatectomy (08/2012) Family History Family History Mother Family history of Alzheimer's disease Father Family history of lung cancer Sibling Diabetes mellitus Hypertension Social History Social History Social History: Surrogate medical decision maker: Chantal Ireland, spouse. Code status: Full code. Smoking packs per day: 0.5 Smoking cigarettes per day: 10.0 Years smoked: 19 Smoking pack-years: 9.50 Smoking status: Former smoker Tobacco type: cigarettes Second hand tobacco smoke exposure: No Smoking end date: 12/07/03 Alcohol intake: current Drinks per week: 2 Alcohol use details: occasional Substance use: never Substance use type: does not use Do You Feel Safe in your Home?: Yes Lack of Transportation: No Lack of Food: Never True Current Housing: I Have Housing Concerned About Future Housing: No Difficulty Paying Gas/Electric Bills: No Difficulty Paying for Meds: No Currently Unemployed: No Education: Associate Degree Difficulty w/ Childcare or Family Care: No Living arrangements: with family Additional living arrangements comments: Lives with in [place]. 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 Gender identity (if verbalized by the patient): Male Spiritual care concerns: No Exam Narrative: GENERAL: Well-appearing, well-nourished, and in no acute distress. HEAD: Normocephalic, atraumatic. EYES: Non injected, non icteric ENT: Nares clear, no rhinorrhea or epistaxis. NECK: Supple. CHEST: Speaking in full sentences. No respiratory distress. HEART: Regular rate and rhythm. . ABDOMEN: Soft, nondistended. EXTREMITIES: Normal range of motion. No lower extremity edema. Strong DP pulse in foot. Compartments soft SKIN: Warm, dry, no rash including no ecchymosis, erythema, warmth, vesicular lesions. No palpable cord. NEURO: No focal deficits. Alert and oriented x3. Sensation intact throughout. Difficult to appreciate patellar reflexes bilaterally, likely secondary to attempting to check with stethoscope which is not proper equipement. 5/5 strength bilaterally with ankle dorsiflexion plantar flexion, bilateral knee flexion extension, hip flexion, abduction, adduction. PSYCH: Normal mood and affect. Course Vital Signs Vital signs: Vital Signs Temperature 97.9 F 01/22/25 06:41 Pulse Rate 64 01/22/25 06:41 Respiratory Rate 18 01/22/25 06:41 Blood Pressure 153/97 H 01/22/25 06:41 Pulse Oximetry 97 01/22/25 06:41 Temperature 97.9 F 01/22/25 06:41 Pulse Rate 60 01/22/25 10:14 Respiratory Rate 17 01/22/25 10:14 Blood Pressure 150/90 H 01/22/25 10:14 Pulse Oximetry 99 01/22/25 10:14 MDM - Extremity Injury (Lower) MDM Narrative Medical decision making narrative: Patient presents with paresthesias in his left lower extremity over the course of the past 2 weeks. Distribution starts along the medial malleolus and radiates along anterolateral left eid and into left thigh. He initially appreciated this just after using a push mower to mow the lawn and at that time his ankle was swollen at 1st but now improved. In the emergency department he is afebrile with vital signs notable for hypertension. No leukocytosis. Normocytic anemia stable from previous. Distribution appears to be L4 dermatome predominantly but with some L3/L5 involvement. The superior involvement suggests meralgia paresthetica/lateral femoral cutaneous nerve but the more distal involvement suggests not just localized to this but rather general femoral neuritis/femoral neuropathy. CPK slightly elevated but not to a degree to suggest rhabdomyolysis. Dimer normal; low suspicion for DVT initially (low pretest probablity) - will not proceed with US. History of both arthritis and prostate cancer per review of the EMR. CT imaging performed as below. Patient prescribed xrgo-gjs-dzbgobq analgesics medication and discussed the findings of his workup and the importance of following up with his primary care physician once again for consideration of advanced imaging, possible nerve conduction studies, physical therapy, alternative medications, physical therapy, etc. Patient and his verifies understanding. Discharged in stable condition Differential Diagnosis Differential diagnosis: Likely other (Lumbar radiculopathy, meralgia paresthetica, rhabdomyolysis, symptomatic anemia, electrolyte abnormalities including hypomagnesemia and hypokalemia and hypocalcemia, DVT; considered shingles; considered thrombophelbitis; lower suspicion ischemic limb given localized distribution) Medical Records Attestation: I reviewed the patient's medical records. Medical records narrative: Hip Xray 01/19/25 Impression: 1: Moderate osteoarthritis of the left hip. Lab Data Attestation: I reviewed the patient's lab results. Lab results narrative: Chemistry normal 01/22/25 07:35 01/22/25 07:35 Labs: Lab Results 01/22/25 01/22/25 Range/Units 07:35 07:35 WBC 7.7 (4.5-10.0) K/mm3 RBC 4.37 L (4.6-6.20) M/mm3 Hgb 12.8 L (14.0-18.0) g/dL Hct 39.3 L (42.0-52.0) % MCV 89.9 (80-100) fl MCH 29.3 (26-34) pg MCHC 32.6 (32-36) g/dl RDW 14.9 H (11.5-14.5) % Plt Count 295 (150-375) k/mm3 MPV 8.8 (7.4-10.4) fl Immature Gran % (Auto) 0.1 (0-0.5) % Neut % (Auto) 67.0 (45.5-73.1) % Lymph % (Auto) 18.7 (18.3-44.2) % [place] % (Auto) 9.4 H (2.6-8.5) % Eos % (Auto) 3.9 (0-4.4) % Baso % (Auto) 0.9 (0.2-1.2) % Lymph # (Auto) 1.43 (0.9-3.2) K/mm3 [place] # (Auto) 0.7 H (0.1-0.6) K/mm3 Eos # (Auto) 0.3 (0-0.3) K/mm3 Baso # (Auto) 0.1 (0.0-0.1) K/mm3 Abs Immat Gran (auto) 0.01 (0.00-0.031) K/mm3 Absolute Neuts (auto) 5.1 (1.3-6.7) K/mm3 Absolute Nucleated RBC 0.000 (0.0-0.012) K/mm3 Nucleated RBC % 0.0 (0.0-0.2) % PT 13.7 (11.1-14.7) Seconds INR 1.0 APTT 25.0 (22.3-36.8) Seconds D-Dimer Cancelled < 0.27 Sodium 137 (137-145) mmol/L Potassium 4.1 (3.4-5.0) mmol/L Chloride 104 (98-107) mmol/L Carbon Dioxide 26 (22-30) mmol/L Anion Gap 7 (4-12) mmol/L BUN 15 (9-20) mg/dL Creatinine 0.85 (0.7-1.3) mg/dL Estim Creat Clear Calc 97 ml/min Estimated GFR > 60 (59 - ) Glucose 97 (65-110) mg/dL Calcium 9.2 (8.4-10.2) mg/dL Magnesium 2.5 H (1.6-2.3) mg/dL Total Bilirubin 1.0 (0.2-1.3) mg/dL AST 28 (17-59) U/L ALT 20 (6-50) U/L Alkaline Phosphatase 95 (38-126) U/L Total Creatine Kinase 221 H (55-170) U/L Total Protein 8.0 (6.3-8.2) g/dL Albumin 4.3 (3.5-5.1) g/dL Imaging Data Radiologist's impression: Impressions Lumbar Spine CT 01/22/25 09:14 Impression: 4 mm anterolisthesis of L3 over L4. Advanced degenerative change at and L4-L5 and L5-S1, with bilateral neural foraminal narrowing, as detailed above. Mild to moderate degenerative change at L3-L4, as above. Ankle X-Ray 01/22/25 10:43 Impression: Unremarkable left ankle. Discharge Plan Discharge Clinical Impression: Normocytic anemia, Elevated CPK, Paresthesia of left lower extremity, Femoral neuropathy of left lower extremity, Anterolisthesis of lumbar spine, Disc degeneration, lumbosacral Patient Disposition: Home Condition: Stable Instructions: Antibiotic Form, Meralgia Paresthetica (ED), Peripheral Neuropathy (ED), Paresthesia (ED), Lumbar Radiculopathy (ED), Anemia (ED), Degenerative Disc Disease (ED), Lower Back Exercises (ED) Additional Instructions: Your workup was largely unremarkable. You have some narrowing of the foramen (middle part) of the bones in your back but without stenosis. The distribution of your paresthesias (numbness/tingling) appears to be primarily L4. Follow-up with primary care physician as you may require advanced imaging (e.g. MRI), physical therapy, nerve conduction studies, alterantive medications, etc. Acetaminophen/Tylenol (maximum 4000 mg per day) is safe to take with NSAIDs (ibuprofen/Motrin) for pain relief. In particular, the NSAIDs help target inflammation which may provide slightly better relief. You can continue to use the muscle relaxer prescribed by her primary care physician if desired. You have been provided information about paresthesias/exercises you can trial. Return to the ER if you develop pain in your back, you develop lower extremity weakness; worsening numbness/paralysis, you have numbness or tingling in your private parts, or you are unable to control your ability to urinate/stool. Patient Language: Khmer Prescriptions: New ibuprofen 600 mg tablet 600 mg PO TID PRN (Reason: pain) Qty: 30 0RF acetaminophen 500 mg capsule 1,000 mg PO Q6H PRN (Reason: pain) Qty: 30 0RF No Action albuterol sulfate 90 mcg/actuation HFA aerosol inhaler 2 puff inhalation QID PRN (Reason: shortness of breath or wheezing) Qty: 8.5 0RF oxybutynin chloride 5 mg tablet extended release 24hr 5 mg PO DAILY acetaminophen 325 mg tablet 325 mg PO BID PRN atorvastatin 10 mg tablet 10 mg PO QHS Qty: 90 3RF Patient Comments: pt stated a month acyclovir 800 mg tablet 800 mg PO DAILY Qty: 90 3RF meloxicam 15 mg tablet 15 mg PO DAILY Qty: 14 0RF calcium carbonate 500 mg calcium (1,250 mg) Tablet 1,000 mg PO DAILY vq-mawa-zfmaq-lycopene-ginkgo 400-600-120 mcg-mcg-mg Tablet 1 tablet PO DAILY cholecalciferol (vitamin D3) 50 mcg (2,000 unit) tablet 50 mcg PO DAILY Qty: 90 1RF Follow-up/Referrals: Wade Hauser MD [Primary Care Provider] - Stand Alone Forms: Work/School Release IP Time of Disposition: 10:53
--- OUTSIDE RECORDS SUMMARY | 2025-01-22 07:36 | XMS_ITS | Clinical Summary ---
Author Organization [facility] Address [address] [place] [id number] Care Team Providers Care Scrap Baler Name Role Phone Unavailable Primary Care Provider [...]
--- OUTSIDE RECORDS SUMMARY | 2025-01-22 07:37 | XMS_ITS | Continuity of Care Document ---
Author Name [facility] Organization [facility] Care Team Providers Care Wet End Tester Name Role Phone [facility] Unavailable Unavailable Problems Combined list of problems from [facility] and [facility] facilities. It does not include entries that were removed or entered in error. Problem Status Onset Date Problem Type Date of Resolution Comments Source Arthritis Active Condition [facility] Erectile dysfunction Active Condition [facility] Exposure to potentially hazardous substance Active Condition [facility] Genital herpes simplex Active Condition [facility] Hyperlipidemia Active Condition [facility] Prostate carcinoma Active Condition [facility] Vitamin D deficiency Active Condition [facility] Diagnosis: ICD-10-CM Z71.3 Dietary counseling and surveillance Active Diagnosis [facility] Diagnosis: ICD-10-CM E78.5 Hyperlipidemia, unspecified Active Diagnosis [facility] Diagnosis: ICD-10-CM Z23 Encounter for immunization Active Diagnosis [facility] Diagnosis: ICD-10-CM R53.83 Other fatigue Active Diagnosis [facility] Medications Combined list of outpatient medications from [facility] and [facility] facilities.Medications provided include 1) outpatient medications from the last 15 months, and 2) patient-reported medications. Medication Details Route Status Patient Instructions Prescription Expires Prescription Number Last Dispense Date Ordering Provider Order Date Order Qty Source ACYCLOVIR 200MG CAP TAKE 4 CAPSULES BY MOUTH ONCE A DAY ORAL ACTIVE TAMMIE BECKHAM KARINA N 2019 [facility] ATORVASTATI N CA 20MG TAB TAKE ONE-HALF TABLET BY MOUTH EVERY EVENING ORAL ACTIVE BHAVANICHO KARINA N 2023 [facility] CALCIUM CARBONATE 500MG TAB,CHEWABL E CHEW AND SWALLOW TWO TABLETS BY MOUTH ONCE A DAY ORAL ACTIVE Alfonso CURIEL 2021 [facility] CHOLECALCIF ARNIE 25MCG (1,000UNIT) TAB TAKE ONE TABLET BY MOUTH ONCE A DAY ORAL ACTIVE Alfonso CURIEL 2021 [facility] OXYBUTYNIN CL 10MG TAB,SA TAKE TWO TABLETS BY MOUTH ONCE A DAY ORAL ACTIVE TAMMIE BECKHAM 2023 [facility] TADALAFIL (EQV-ADCIRC A) 20MG TAB TAKE ONE TABLET BY MOUTH ONCE A DAY ORAL ACTIVE Gadiel JAMISON 2020 [facility] Immunizations Combined list of available immunizations from the Department of Defense and Veterans Affairs facilities. Immunization Series Date Given Administered By Site Reaction Lot Number CVX Code Drug Industrial Order Clerk Status Comments Source ZOSTER RECOMBINANT 2 2020 187 complet ed [facility] ZOSTER RECOMBINANT 1 2020 187 complet ed [facility] COVID-19 (TRAY), VECTOR-NR, [id number], PF, 0.5 ML 1 2020 212 complet ed [facility] INFLUENZA, SEASONAL, INJECTABLE, PRESERVATIVE FREE 1 2016 140 complet ed HISTORICA L INFORMATI ON - FROM OTHER REGISTRY, [facility] Results Combined list of recent chemistry, hematology and other laboratory results from Department of [facility] and Veterans Affairs, ranging from 15 months to all on record, depending upon the facility. Order Name Results Value Reference Range Date Interpretation Specimen Comments Source MICRAL/CR EAT PROFILE (STL) ALBUMIN [MASS/VOLUM E] IN URINE 13.2 mg/L 01/14 Specimen Type: URINE No comment entered. Ordering Provider: ADIS BECKHAM Report Released Date/Time: Jan 04, 2024 09:31 AM Reporting Lab: [facility] [address] [facility] [address] Performing Lab: [facility] [address] [facility] [address] [facility] MICRAL/CR EAT PROFILE (STL) ALBUMIN/CRE ATININE [MASS RATIO] IN URINE 14 mg/g 0 - 29 01/14 Specimen Type: URINE No comment entered. Ordering Provider: ADIS BECKHAM Report Released Date/Time: Jan 04, 2024 09:31 AM Reporting Lab: [facility] [address] [facility] [address] Performing Lab: [facility] [address] [address] [facility] MICRAL/CR EAT PROFILE (STL) CREATININE [MASS/VOLUM E] IN URINE 95.1 mg/dL 63 - 166 01/14 Specimen Type: URINE No comment entered. Ordering Provider: ADIS BECKHAM Report Released Date/Time: Jan 04, 2024 09:31 AM Reporting Lab: [facility] [address] [facility] [address] Performing Lab: [address] [phone] [place] [address] COMPREHEN SIVE METABOLIC PANEL CREATININE [MASS/VOLUM E] IN SERUM OR PLASMA 1.01 mg/dL 0.7 - 1.3 01/14 Specimen Type: PLASMA Comment: No hemolysis noted. Ordering Provider: ADIS BECKHAM Report Released Date/Time: Jan 04, 2024 09:31 AM Reporting Lab: [facility] [address] [facility] [address] Performing Lab: [address] [address] [facility] COMPREHEN SIVE METABOLIC PANEL UREA NITROGEN [MASS/VOLUM E] IN SERUM OR PLASMA 15.6 mg/dL 9.0 - 25.0 01/14 Specimen Type: PLASMA Comment: No hemolysis noted. Ordering Provider: ADIS BECKHAM Report Released Date/Time: Jan 04, 2024 09:31 AM Reporting Lab: [facility] [address] [facility] [address] Performing Lab: [facility] [address] [place] [phone] [facility] COMPREHEN SIVE METABOLIC PANEL GLUCOSE [MASS/VOLUM E] IN SERUM OR PLASMA 93 mg/dL 72 - 99 01/14 Specimen Type: PLASMA Comment: No hemolysis noted. Ordering Provider: ADIS BECKHAM Report Released Date/Time: Jan 04, 2024 09:31 AM Reporting Lab: [facility] [address] [facility] [address] Performing Lab: [facility] [address] [facility] [address] [facility] COMPREHEN SIVE METABOLIC PANEL SODIUM [MOLES/VOLU ME] IN SERUM OR PLASMA 136 meq/L 136 - 145 01/14 Specimen Type: PLASMA Comment: No hemolysis noted. Ordering Provider: ADIS BECKHAM Report Released Date/Time: Jan 04, 2024 09:31 AM Reporting Lab: [facility] [address] [facility] [address] Performing Lab: [facility] [address] [facility] [address] [facility] COMPREHEN SIVE METABOLIC PANEL POTASSIUM [MOLES/VOLU ME] IN SERUM OR PLASMA 4.0 meq/L 3.5 - 5 01/14 Specimen Type: PLASMA Comment: No hemolysis noted. Ordering Provider: ADIS BECKHAM Report Released Date/Time: Jan 04, 2024 09:31 AM Reporting Lab: [facility] [address] [facility] [address] Performing Lab: [facility] [address] [facility] [address] [facility] COMPREHEN SIVE METABOLIC PANEL CHLORIDE [MOLES/VOLU ME] IN SERUM OR PLASMA 102 meq/L 98 - 107 01/14 Specimen Type: PLASMA Comment: No hemolysis noted. Ordering Provider: ADIS BECKHAM Report Released Date/Time: Jan 04, 2024 09:31 AM Reporting Lab: [facility] [address] [facility] [address] Performing Lab: [facility] [address] [facility] [address] [facility] COMPREHEN SIVE METABOLIC PANEL CARBON DIOXIDE, TOTAL [MOLES/VOLU ME] IN SERUM OR PLASMA 24 meq/L 22 - 31 01/14 Specimen Type: PLASMA Comment: No hemolysis noted. Ordering Provider: ADIS BECKHAM Report Released Date/Time: Jan 04, 2024 09:31 AM Reporting Lab: [facility] [address] [place], [place] [phone] Performing Lab: [facility] [address] [place] [phone] [place] [address] COMPREHEN SIVE METABOLIC PANEL CALCIUM [MASS/VOLUM E] IN SERUM OR PLASMA 9.6 mg/dL 8.4 - 10.4 01/14 Specimen Type: PLASMA Comment: No hemolysis noted. Ordering Provider: ADIS BECKHAM Report Released Date/Time: Jan 04, 2024 09:31 AM Reporting Lab: [place] [address] Performing Lab: [place] [address] [place] [address] COMPREHEN SIVE METABOLIC PANEL PROTEIN [MASS/VOLUM E] IN SERUM OR PLASMA 8.4 g/dL 6 - 8.6 01/14 Specimen Type: PLASMA Comment: No hemolysis noted. Ordering Provider: ADIS BECKHAM Report Released Date/Time: Jan 04, 2024 09:31 AM Reporting Lab: [facility] [address] [place], [place] [phone] Performing Lab: [address] [phone] [place] [address] COMPREHEN SIVE METABOLIC PANEL ALBUMIN [MASS/VOLUM E] IN SERUM OR PLASMA 4.5 g/dL 3.4 - 5 01/14 Specimen Type: PLASMA Comment: No hemolysis noted. Ordering Provider: ADIS BECKHAM Report Released Date/Time: Jan 04, 2024 09:31 AM Reporting Lab: [facility] [address] [place], [place] [phone] Performing Lab: [facility] [address] [place] [phone] [place] [address] COMPREHEN SIVE METABOLIC PANEL BILIRUBIN.T OTAL [MASS/VOLUM E] IN SERUM OR PLASMA 0.8 mg/dL 0.2 - 1.2 01/14 Specimen Type: PLASMA Comment: No hemolysis noted. Ordering Provider: ADIS BECKHAM Report Released Date/Time: Jan 04, 2024 09:31 AM Reporting Lab: [facility] [address] [facility] [address] Performing Lab: [facility] [address] [facility] [address] [facility] COMPREHEN SIVE METABOLIC PANEL ALKALINE PHOSPHATASE [ENZYMATIC ACTIVITY/VO LUME] IN SERUM OR PLASMA 95 U/L 40 - 150 01/14 Specimen Type: PLASMA Comment: No hemolysis noted. Ordering Provider: ADIS BECKHAM Report Released Date/Time: Jan 04, 2024 09:31 AM Reporting Lab: [facility] [address] [facility] [address] Performing Lab: [facility] [address] [place] [phone] [facility] COMPREHEN SIVE METABOLIC PANEL ASPARTATE AMINOTRANSF ERASE [ENZYMATIC ACTIVITY/VO LUME] IN SERUM OR PLASMA 23 U/L 5 - 34 01/14 Specimen Type: PLASMA Comment: No hemolysis noted. Ordering Provider: ADIS BECKHAM Report Released Date/Time: Jan 04, 2024 09:31 AM Reporting Lab: [facility] [address] [facility] [address] Performing Lab: [facility] [address] [facility] [address] [facility] COMPREHEN SIVE METABOLIC PANEL ALANINE AMINOTRANSF ERASE [ENZYMATIC ACTIVITY/VO LUME] IN SERUM OR PLASMA 18 U/L 8 - 40 01/14 Specimen Type: PLASMA Comment: No hemolysis noted. Ordering Provider: ADIS BECKHAM Report Released Date/Time: Jan 04, 2024 09:31 AM Reporting Lab: [facility] [address] [facility] [address] Performing Lab: [facility] [address] [place] [phone] [facility] COMPREHEN SIVE METABOLIC PANEL GLOMERULAR FILTRATION RATE/1.73 SQ M.PREDICTED [VOLUME RATE/AREA] IN SERUM, PLASMA OR BLOOD BY CREATININE- BASED FORMULA (CKD-EPI 2020) 83.6 60 01/14 Specimen Type: PLASMA Comment: No hemolysis noted. Ordering Provider: ADIS BECKHAM Report Released Date/Time: Jan 04, 2024 09:31 AM Reporting Lab: [address] [address] Performing Lab: [address] [address] [facility] HGA1C HEMOGLOBIN A1C/HEMOGLO BIN.TOTAL IN BLOOD 6.0 4.0 - 6.0 01/14 Specimen Type: BLOOD No comment entered. Ordering Provider: ADIS BECKHAM Report Released Date/Time: Jan 04, 2024 09:31 AM Reporting Lab: [address] [address] Performing Lab: [address] [address] [facility] LIPID PANEL (STL) CHOLESTEROL [MASS/VOLUM E] IN SERUM OR PLASMA 162 mg/dL 0 - 200 01/14 Specimen Type: PLASMA Comment: No hemolysis noted. Ordering Provider: ADIS BECKHAM Report Released Date/Time: Jan 04, 2024 09:31 AM Reporting Lab: [address] [address] Performing Lab: [address] [address] [facility] LIPID PANEL (STL) TRIGLYCERID E [MASS/VOLUM E] IN SERUM OR PLASMA 89 mg/dL 0 - 150 01/14 Specimen Type: PLASMA Comment: No hemolysis noted. Ordering Provider: ADIS BECKHAM Report Released Date/Time: Jan 04, 2024 09:31 AM Reporting Lab: [address] [address] Performing Lab: [address] [address] [facility] LIPID PANEL (STL) CHOLESTEROL IN LDL [MASS/VOLUM E] IN SERUM OR PLASMA BY CALCULATION 101 mg/dL 01/14 Specimen Type: PLASMA Comment: No hemolysis noted. Ordering Provider: ADIS BECKHAM Report Released Date/Time: Jan 04, 2024 09:31 AM Reporting Lab: [place] [address] Performing Lab: [address] LIPID PANEL (STL) CHOLESTEROL IN HDL [MASS/VOLUM E] IN SERUM OR PLASMA 43 mg/dL 40 01/14 Specimen Type: PLASMA Comment: No hemolysis noted. Ordering Provider: ADIS BECKHAM Report Released Date/Time: Jan 04, 2024 09:31 AM Reporting Lab: [place] [address] Performing Lab: [address] PROST. SPECIFIC AG.(PB-ST L) PROSTATE SPECIFIC [...] Jan 04, 2024 09:31 AM Reporting Lab: [place] [address] Performing Lab: [address] TSH W/ REFLEX FT4 (STL) THYROTROPIN [UNITS/VOLU ME] IN SERUM OR PLASMA 0.778 u[IU]/ mL 0.47 - 5 01/14 Specimen Type: PLASMA Comment: No hemolysis noted. Ordering Provider: ADIS BECKHAM Report Released Date/Time: Jan 04, 2024 09:31 AM Reporting Lab: [place] [address] Performing Lab: [address] VITAMIN D, 25-HYDROX Y 25-HYDROXYV ITAMIN D3 [MASS/VOLUM E] IN SERUM OR PLASMA 81.1 ng/mL 30 - 96 01/14 Specimen Type: SERUM No comment entered. Ordering Provider: ADIS BECKHAM Report Released Date/Time: Jan 04, 2024 09:31 AM Reporting Lab: [place] [address] Performing Lab: [address] CYSTATIN C EGFR PANELS (STL-PB-M A) [...] January 13, 2024 11:47 AM Reporting Lab: [place] [address] Performing Lab: [address] CYSTATIN C EGFR PANELS (STL-PB-M A) [...] January 13, 2024 11:47 AM Reporting Lab: [place] [id number] Performing Lab: [facility] [address] [facility] [address] [facility] CYSTATIN C EGFR PANELS (STL-PB-M A) CKD-EPI [...] January 13, 2024 11:47 AM Reporting Lab: [address] [address] Performing Lab: [address] [address] [facility] CYSTATIN C EGFR PANELS (STL-PB-M A) CREATININE [...] January 13, 2024 11:47 AM Reporting Lab: [address] [address] Performing Lab: [address] [address] [facility] Encounters Combined list of: 1) Encounters from Department of [facility] Affairs facilities going backup to the last 18 months, not all [place] inpatient encounters are included; 2) Encounters from the Department of Defense facilities going backup to 280 months. Location Location Details Encounter Type Encounter Number Reason For Visit Attending Provider ADM Date DC Date Status Disposition Source [facility] Outpatient Encounter [id number] CODY BUCK 09/18 [facility] Outpatient Encounter [id number] 09/21 [facility] Outpatient Encounter [id number] ANURAG BECKHAM N 09/24 [facility] OFFICE O/P EST MOD 30 MIN [id number] Diagnos is: ICD-10- CM R53.83 Other fatigue CHARBEL CURIEL M 11/12 [facility] Outpatient Encounter [id number] 11/22 [facility] FLU IMM NO ADMIN DOC LIDIA [id number] Diagnos is: ICD-10- CM Z23 Encount er for immuniz atEARLENE Rod RA 12/10 [facility] [place] [id number] Diagnos is: ICD-10- CM Z71.3 Dietary trauma counsellor ing and surveil [place] M 12/22 [facility] Outpatient Encounter [id number] 12/23 [facility] Outpatient Encounter [id number] 01/12 [facility] OFFICE O/P EST MOD 30 MIN [id number] Diagnos is: ICD-10- CM E78.5 Hyperli pidemia , unspeci fied ANURAG BECKHAM N 01/12 [facility] MED NUTRITION INDIV SUBSEQ [id number] Diagnos is: ICD-10- CM Z71.3 Dietary trauma counsellor ing and surveil [place] 02/02 [facility] MED NUTRITION INDIV SUBSEQ [id number] Diagnos is: ICD-10- CM Z71.3 Dietary trauma counsellor ing and surveil [place] 04/13 [facility] MED NUTRITION INDIV SUBSEQ [id number] Diagnos is: ICD-10- CM Z71.3 Dietary trauma counsellor ing and surveil [place] 06/01 [facility] MED NUTRITION INDIV SUBSEQ [id number] Diagnos is: ICD-10- CM Z71.3 Dietary trauma counsellor ing and surveil [place] 08/24 [facility] Outpatient Encounter [id number] LIVE GEORGE 08/29 [facility] Outpatient Encounter [id number] ANURAG BECKHAM [place] N 09/09 [facility] Outpatient Encounter [id number] ANURAG BECKHAM [place] N 11/02 [facility] Outpatient Encounter [id number] 11/15 [facility] MED NUTRITION INDIV SUBSEQ [id number] Diagnos is: ICD-10- CM Z71.3 Dietary trauma counsellor ing and surveil [place] 12/23 [facility] Social History Combined list of available smoking, tobacco, and other social history from Department of Defense and Veterans Affairs facilities. Social History Type Response Date Comment Sourc e Tobacco smoking status NHIS VA-TOBACCO FORMER USER 01/13/2024 [facility] History of tobacco use CA-TOBACCO QUIT 15 YRS OR MORE 01/13/2024 [facility] History of tobacco use VA-TOBACCO FORMER USER 12/19/2022 [facility] History of tobacco use VA-TOBACCO FORMER USER 05/23/2022 [facility] History of tobacco use VA-TOBACCO FORMER USER 05/23/2021 [facility] This section is an empty social history section. DoD Plan of Care List of future care activities from Department of Veterans Affairs facilities. Additional future care activities may be listed in the Assessment and Plan section. Date/Time Care Activity Care Activity Detail Facili ty 03/07/2025 AMBULATORY - MEDICINE AMBULATORY - MEDICI NE [facility]
[2025-01-22 07:56] LABS: Basophils Absolute Auto 0.1 K/mm3 (0.0-0.1); Basophils Percent Auto 0.9 % (0.2-1.2); Eosinophils Absolute Auto 0.3 K/mm3 (0-0.3); Eosinophils Percent Auto 3.9 % (0-4.4); Hematocrit 39.3 % (42.0-52.0); Hemoglobin 12.8 g/dL (14.0-18.0); Immature Granulocyte Absolute 0.01 K/mm3 (0.00-0.031); Immature Granulocyte Percent A 0.1 % (0-0.5); Lymphocytes Absolute Auto 1.43 K/mm3 (0.9-3.2); Lymphocytes Percent Auto 18.7 % (18.3-44.2); Mean Corpuscular HGB Conc 32.6 g/dl (32-36); Mean Corpuscular Hemoglobin 29.3 pg (26-34); Mean Corpuscular Volume 89.9 fl (80-100); Mean Platelet Volume 8.8 fl (7.4-10.4); Monocytes Absolute Auto 0.7 K/mm3 (0.1-0.6); Monocytes Percent Auto 9.4 % (2.6-8.5); Neutrophils Absolute Auto 5.1 K/mm3 (1.3-6.7); Platelet Count Result 295 k/mm3 (150-375); Red Blood Count 4.37 M/mm3 (4.6-6.20); Red Cell Distribution Width 14.9 % (11.5-14.5); White Blood Count 7.7 K/mm3 (4.5-10.0)
[2025-01-22 08:05] LABS: Alanine Aminotransferase 20 U/L (6-50); Albumin Level 4.3 g/dL (3.5-5.1); Alkaline Phosphatase 95 U/L (38-126); Anion Gap 7 mmol/L (4-12); Aspartate Amino Transferase 28 U/L (17-59); Blood Urea Nitrogen 15 mg/dL (9-20); Calcium 9.2 mg/dL (8.4-10.2); Carbon Dioxide 26 mmol/L (22-30); Chloride 104 mmol/L (98-107); Creatine Kinase 221 U/L (55-170); Estimated CRCL calculation 97 ml/min; Estimated Glomerular Filt Rate > 60; Glucose 97 mg/dL (65-110); Magnesium 2.5 mg/dL (1.6-2.3); Potassium 4.1 mmol/L (3.4-5.0); Sodium 137 mmol/L (137-145)
[2025-01-22 08:35] LABS: Prothrombin Time 13.7 Seconds (11.1-14.7)
[2025-01-22 08:40] LABS: D Dimer < 0.27 ug/mL (<0.48)
[2025-01-22] MEDS: ACETAMINOPHEN 500 MG TABLET 1000 MG PO (08:57)
--- NOTE | 2025-01-22 09:17 | PC.NURSE ---
Pt to CT and XRAY via stretcher at this time.
[2025-01-22 10:14] VITALS: BP 150/90; PULSE 60; RESP 17; O2SAT 99
[2025-01-22] MEDS: KETOROLAC 30 MG/ML VIAL (*BKC) 15 MG IM (11:12)
== END 2025-01-22 11:30 | disposition home or self-care (01) ==
PROVIDERS: Emergency Medicine; Emergency Provider Student in an Organized Health Care Education/Training Program; PCP Family Medicine
DX: D64.9 Anemia, unspecified (principal); R20.2 Paresthesia of skin; G57.22 Lesion of femoral nerve, left lower limb; M51.379 Other intervertebral disc degeneration, lumbosacral region without mention of lumbar back pain or lower extremity pain; E55.9 Vitamin D deficiency, unspecified; Z85.46 Personal history of malignant neoplasm of prostate; E78.49 Other hyperlipidemia; Z87.891 Personal history of nicotine dependence
CPT/HCPCS: 36415; 72131; 73600; 80053; 82550; 83735; 85025; 85380; 85610; 85730; 96372; 99284; A9270; J1885

== ENCOUNTER 2025-02-22 12:41 | Outpatient (CLI) | payer OTHER, SELFPAY ==
--- NOTE | ~2025-02-22 | MR_ITS ---
MRI of the lumbar spine Clinical History: Spinal stenosis Technique: Axial T2-weighted images, and sagittal T1-weighted, T2-weighted, and T2 fat-sat images wer e acquired. Findings: There is no fracture of the lumbar spine. There is 3 mm anterolisthesis of L3 over L4. No s uspicious bone marrow signal abnormality seen. At L1-L2, there is no disc bulge or herniation. There is mild facet arthropathy. No central canal ana nosis or neural foraminal narrowing. At L2-L3, there is mild degenerative spurring. There is minimal disc bulge. No spinal canal stenosis or neural foraminal narrowing. At L3-L4, there is mild disc bulge with moderate to advanced facet arthropathy. No central canal sten osis or neural foraminal narrowing. At L4-L5, there is moderate degenerative distended. There is mild disc bulge and mild to moderate fac et arthropathy. No central canal stenosis. There is severe left neural foraminal narrowing and minima l right neural foraminal narrowing. At L5-S1, there is moderate degenerative disc narrowing. There is moderate facet arthropathy. No cent ral canal stenosis. There is severe left neural foraminal narrowing and mild right neural foraminal n arrowing. Paravertebral soft tissues are unremarkable. Impression: Moderate degenerative spondylosis, especially at L4-L5 and L5-S1, as detailed above. Reviewed, dictated and finalized at [facility]. Impression: Moderate degenerative spondylosis, especially at L4-L5 and L5-S1, as detailed jorge rice.
--- NOTE | ~2025-02-22 | MR_ITS ---
MRI of the left hip Clinical history: Pain Technique: Coronal T1-weighted, T2-weighted, and proton-density fat-sat images, and axial T1-weighted and proton-density fat-sat images were acquired through the pelvis. Coronal T2-weighted images and c oronal, axial, and sagittal proton-density fat-sat images were acquired through the left hip. Findings: There is no fracture or avascular necrosis of either hip. No suspicious or aggressive bone marrow signal reality seen. No evidence for osteitis. 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 There is focal subchondral cystic change in the bilateral acetabular roofs. No significant joint effusion on either side. No left acet abular labral tear identified. Visualized musculature about the pelvis and left hip is unremarkable. No muscle atrophy or edema. Vis ualized tendons are intact. No soft tissue mass or fluid collection identified. IMPRESSION: Moderate to advanced degenerative change of both hip joints. No acute abnormality evident. Reviewed, dictated and finalized at location . IMPRESSION: Moderate to advanced degenerative change of both hip joints. No acute abnormali ty evident.
== END 2025-02-22 12:42 | disposition home or self-care (01) ==
LOC: GOSHIMG 12:41
PROVIDERS: PCP Family Medicine; Visit Provider Orthopaedic Surgery
DX: M47.817 Spondylosis without myelopathy or radiculopathy, lumbosacral region (principal); M47.816 Spondylosis without myelopathy or radiculopathy, lumbar region; M16.0 Bilateral primary osteoarthritis of hip
CPT/HCPCS: 72148; 73721

== ENCOUNTER 2025-04-10 09:00 | Outpatient (RCR) | payer OTHER, SELFPAY ==
--- NOTE | 2025-03-16 09:35 | PTOPEVAL1 ---
Assessment and note entered by Roland Mcknight PT Evaluation Information Assessment Status Evaluation Diagnosis low back pain with LLE radicular symptoms ICD-10 Condition Codes (PT) Pain in low back M54.50,Radiculopathy, lumbar region M54.16,Difficulty Walking R26.2 Onset mid January Subjective Information Pt states pain in his leg began in his buttocks and progressed to traveling all the way down his leg. Pt was seen by orthopedic surgeon for a follow up from his TKA last year, where MRI and x rays were ordered showing severe arthritis of ian hips, spinal stenosis, and disc bulge. Pt states he was now seen by pain management and referred to physical therapy. Pt has tried Medrol dose pack, steroid injection, muscle relaxers, meloxicam to manage his pain. Pt reports when the pain was at his worst he was ambulating with a walker and was unable stand upright. 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 Reported Pain Level Pain Score 3,5: Self Report Assessment PT Clinical Summary Patient presents to physical therapy with a primary issue of low back pain with radicular symptoms since mid january. Pt displays signs and symptoms associated with nerve root compression such as radicular pain, numbness, tingling and mild myotomal weakness. Patient is currently on short term disability and needs to return to work and reach PLOF. exercise program instructed and written handout provided, exercises tolerated well with no adverse effects to note post-session. Patient was educated on importance of adherence to home exercise program. Patient was also educated on anatomy, prognosis, home modalities, and plan of care. Plan of Care Interventions Aquatic Therapy,Electrical Stimulation,Gait Training,Hot Pack/Cold Pack,Manual Therapy, Mechanical Traction,Neuro Re-education,Therapeutic Activities,Therapeutic Exercise,Other PT Services Indicated Yes Treatment Frequency and 2x week 8 visits Duration These treatments will address the objective and functional deficits as defined above. The patient will be advanced safely and appropriately in order for the patient to progress towards his/her prior level of function. Additional exercises will be introduced and as well as a comprehensive home exercise program upon discharge, if needed, ?to ensure carryover of functional gains achieved in the clinic. This treatment plan has been reviewed and agreement upon by the patient.
--- NOTE | 2025-03-16 09:36 | OPREHPOC ---
Outpatient Therapy Plan of Care This is a Multidisciplinary Plan of Care that may contain components documented by all disciplines (PT, OT, and ST.) PT Problem 1 PT Problem #1 Knowledge Deficit PT Goal 1 Goal / Goal Update 1. Patient to demonstrate independence with HEP for improved self-reliance of symptom management. Target Visit 8 PT Problem 2 PT Problem #2 Pain PT Goal 1 Goal / Goal Update 1. Patient to decrease subjective reports of pain to <2/10 for improved ADL tolerance. 2. Patient to report an improvement in radiating symptoms by 50% to increase ability to perform ADLs. 3. Pt will report an ability to stand and walk for >30 minutes without increasing radicular pain to facilitate ability to return to work Target Visit 8 PT Problem 3 PT Problem #3 Impaired Functional Mobility PT Goal 1 Goal / Goal Update 1. Pt will discontinue use of cane and display ability to ambulate without gait deviations. Target Visit 8
--- NOTE | 2025-04-10 09:50 | PTOPDC ---
Assessment and note entered by Roland Mcknight PT Evaluation Information Assessment Status Discharge Diagnosis low back pain with LLE radicular symptoms ICD-10 Condition Codes (PT) Pain in low back M54.50,Radiculopathy, lumbar region M54.16,Difficulty Walking R26.2 Onset mid January Subjective Information Pt states he feels 85% recovered overall. He reports his radiating leg pain is less intense and frequent but still has tingling in R foot. Pt reports continued difficulty with morning stiffness and difficulty with prolonged standing. Pt states he has returned work and a new office chair and safety shoes to help with pain management. Reported Pain Level Pain Score 0: Self Report Assessment PT Clinical Summary Patient's lower back pain and LLE radicular symptoms has improved overall as evidenced by decreased in symptoms and increase mobility, strength, and overall functional use of the extremity. Patient has met therapy goals and is pleased with progress made towards the remaining goals. Patient to discharge from physical therapy this date and continue with updated home exercise program as instructed. Patient to contact physical therapist or primary care provider if questions or concerns arise. Plan of Care PT Services Indicated No
== END 2025-04-10 10:09 | disposition home or self-care (01) ==
LOC: ANHGOSHPT 09:00
PROVIDERS: PCP Family Medicine; Visit Provider Neurological Surgery
DX: M51.16 Intervertebral disc disorders with radiculopathy, lumbar region (principal); M54.50 Low back pain, unspecified; R26.2 Difficulty in walking, not elsewhere classified
CPT/HCPCS: 97110; 97112; 97140; 97161